=== PATIENT | female | born 1985 | race Caucasian/White ===

== ENCOUNTER 2020-10-02 20:18 | Emergency (ER) | payer MEDICAID, SELFPAY ==
[2020-10-02 20:24] VITALS: BP 113/48; PULSE 86; RESP 16; TEMP 36.7; O2SAT 97; BMI 35.2
[2020-10-02 21:25] LABS: MANUAL DIFF FLAG NO
[2020-10-02 21:28] LABS: Basophils Percent Auto 0.1 % (0-2); Eosinophils Absolute Auto 0.1 X10*3/uL (0.0-0.4); Eosinophils Percent Auto 1.8 % (0-4); Hematocrit 38.3 % (37-47); Imm Gran Abs Auto 0.01 X10*3/uL (0.00-0.03); Imm Gran Pct Auto 0.1 % (0.0-0.4); Lymphocytes Absolute Auto 1.7 X10*3/uL (1.2-4.9); Lymphocytes Percent Auto 21.6 % (20-40); Mean Corpuscular HGB Conc 33.9 g/dl (31.0-35.0); Mean Corpuscular Hemoglobin 30.2 pg (27.0-33.0); Mean Corpuscular Volume 88.9 fL (80-98); Mean Platelet Volume 11.1 fL (9.4-12.3); Monocytes Absolute Auto 0.5 X10*3/uL (0.1-1.2); Monocytes Percent Auto 6.3 % (2-11); Neutrophils Absolute Auto 5.5 X10*3/uL (2.0-8.3); Neutrophils Percent Auto 70.1 % (45-73); Platelet Count 260 X10*3/uL (160-400); Red Blood Count 4.31 X10*6/uL (4.20-5.50); Red Cell Distribution Width 12.7 % (11.0-16.0); White Blood Count 7.9 X10*3/uL (4.8-10.8)
[2020-10-02 21:49] LABS: Alanine Aminotransferase 15 U/L (0-31); Albumin Level 4.4 g/dL (3.5-5.0); Alkaline Phosphatase 55 U/L (39-117); Anion Gap 13 (12-20); Aspartate Amino Transferase 19 U/L (5-31); Bilirubin Total 0.9 mg/dL (0.0-1.0); Blood Urea Nitrogen 8 mg/dL (9-16); Calcium 9.5 mg/dL (8.4-10.2); Carbon Dioxide 25 mmol/L (22-29); Chloride 106 mmol/L (96-108); Creatinine Clr Calc Pharmacy 101.6; Estimated Glomerular Filt Rate > 60; Glucose Random 83 mg/dL (60-115); Potassium 4.1 mmol/L (3.3-5.1); Sodium 140 mmol/L (135-145); Total Protein 7.3 g/dL (6.5-8.0)
[2020-10-02 21:56] LABS: HCG Quantitative < 2 mIU/mL
[2020-10-02 22:22] VITALS: BP 110/68; PULSE 78; RESP 16; O2SAT 98
[2020-10-02 22:39] VITALS: BP 105/68; PULSE 68
[2020-10-02 22:41] VITALS: BP 113/71; PULSE 76
[2020-10-02 22:43] VITALS: BP 106/67; PULSE 80
--- NOTE | 2020-10-02 23:27 | ED.GENADULT ---
HPI - General Adult General Chief complaint: General Medical Stated complaint: dehydration Time Seen by Provider: 10/02/20 22:27 Source: patient Mode of arrival: ambulatory History of Present Illness HPI narrative: 35-year-old female who presents with complaints of feeling dehydrated with mild dizziness but denies any nausea, vomiting, fever, chills, sore throat, cough, shortness of breath or chest pain. In addition, she denies any abdominal discomfort or symptoms. Related Data Allergies Allergy/AdvReac Type Severity Reaction Status Date / Time acetaminophen [From VICODIN] Allergy Unknown VOMITING Verified 10/02/20 20:27 bupropion [From WELLBUTRIN] Allergy Unknown MANIC Verified 10/02/20 20:27 hydrocodone [From VICODIN] Allergy Unknown VOMITING Verified 10/02/20 20:27 olanzapine [From ZYPREXA] Allergy Unknown HARD TO Verified 10/02/20 20:27 WAKE UP Review of Systems Review of Systems: Pertinent positives and negatives as stated in HPI 10 point review of systems is otherwise negative. PMFSH Past Medical History Source: nursing notes reviewed Medical History Asthma Social History Social History Advance Directives: No Advance Directives Information Provided: No Patient : No Physical Exam Vital Signs: Vital Signs: Last Vital Signs Temp 98.0 F 10/02/20 20:24 Pulse 80 10/02/20 22:43 Resp 16 10/02/20 22:22 BP 106/67 10/02/20 22:43 Pulse Ox 98 10/02/20 22:22 Body Mass Index 35.2 VITAL SIGNS: Reviewed. GENERAL: Well developed, well nourished, in no acute distress. HEAD: Normocephalic/atraumatic EYES: PERRLA, EOMI EARS: Ext canals without abnormality, TMs non-bulging and non-erythematous NOSE: Nares patent bilateral OROPHARYNX: no oral lesions noted, posterior pharynx clear and non-erythematous without noted tonsillar enlargement/erythema/exudates NECK: Supple, no adenopathy LUNGS: Normal breath sounds. No adventitious sounds or accessory muscle use. SpO2<98> CARDIOVASCULAR: Regular rate and rhythm without noted murmurs ABDOMEN: Soft, non-tender, non-distended with bowel sounds. SKIN: Inspection of the skin reveals no rashes NEUROLOGIC: Alert and oriented x 4. Strength and sensation to light touch were grossly intact x 4. Course Course Course Narrative: 35-year-old female with history and clinical presentation mildly suggestive of mild dehydration. Review of all investigations without significant findings. Patient received 2 L of IV fluids and on re-evaluation is feeling better. Medical Decision Making Lab Data Result diagrams: 10/02/20 21:19 10/02/20 21:19 Labs: Lab Results 10/02/20 10/02/20 10/03/20 Range/Units 21:19 21:19 02:07 WBC 7.9 (4.8-10.8) X10*3/uL RBC 4.31 (4.20-5.50) X10*6/uL Hgb 13.0 (12.0-16.0) g/dl Hct 38.3 (37-47) % MCV 88.9 (80-98) fL MCH 30.2 (27.0-33.0) pg MCHC 33.9 (31.0-35.0) g/dl RDW 12.7 (11.0-16.0) % Plt Count 260 (160-400) X10*3/uL MPV 11.1 (9.4-12.3) fL Immature Gran % (Auto) 0.1 (0.0-0.4) % Neut % (Auto) 70.1 (45-73) % Lymph % (Auto) 21.6 (20-40) % [place] % (Auto) 6.3 (2-11) % Eos % (Auto) 1.8 (0-4) % Baso % (Auto) 0.1 (0-2) % Lymph # (Auto) 1.7 (1.2-4.9) X10*3/uL [place] # (Auto) 0.5 (0.1-1.2) X10*3/uL Eos # (Auto) 0.1 (0.0-0.4) X10*3/uL Baso # (Auto) 0.0 (0.0-0.2) X10*3/uL Abs Immat Gran (auto) 0.01 (0.00-0.03) X10*3/uL Absolute Neuts (auto) 5.5 (2.0-8.3) X10*3/uL Absolute Nucleated RBC 0.000 (0.0-0.012) X10*3/uL Nucleated RBC % (auto) 0.0 (0.0-0.2) /100WBC Sodium 140 (135-145) mmol/L Potassium 4.1 (3.3-5.1) mmol/L Chloride 106 (96-108) mmol/L Carbon Dioxide 25 (22-29) mmol/L Anion Gap 13 (12-20) BUN 8 L (9-16) mg/dL Creatinine 0.84 (0.5-1.4) mg/dL Estim Creat Clear Calc 101.6 Estimated GFR > 60 Random Glucose 83 (60-115) mg/dL Calcium 9.5 (8.4-10.2) mg/dL Total Bilirubin 0.9 (0.0-1.0) mg/dL AST 19 (5-31) U/L ALT 15 (0-31) U/L Alkaline Phosphatase 55 (39-117) U/L Total Protein 7.3 (6.5-8.0) g/dL Albumin 4.4 (3.5-5.0) g/dL Beta HCG, Quant < 2 mIU/mL Urine Color YELLOW Urine Appearance HAZY Urine pH 6.0 (5.0-8.0) Ur Specific [place] 1.020 (1.005-1.025) Urine Protein NEG (NEG-TRACE) MG/DL Urine Glucose (UA) NEG (NEG) MG/DL Urine Ketones NEG (NEG) MG/DL Urine Blood 1+ H (NEG) Urine Nitrite NEG (NEG) Ur Leukocyte Esterase 1+ H (NEG) Urine RBC 1-4 (0) /HPF Urine WBC 5-9 H (0-4) /HPF Ur Squamous Epith Cells 2+ /LPF Urine Bacteria 2+ /LPF Urine Mucus 4+ /LPF Urine Test (NEGATIVE) 10/03/20 Range/Units 02:07 WBC (4.8-10.8) X10*3/uL RBC (4.20-5.50) X10*6/uL Hgb (12.0-16.0) g/dl Hct (37-47) % MCV (80-98) fL MCH (27.0-33.0) pg MCHC (31.0-35.0) g/dl RDW (11.0-16.0) % Plt Count (160-400) X10*3/uL MPV (9.4-12.3) fL Immature Gran % (Auto) (0.0-0.4) % Neut % (Auto) (45-73) % Lymph % (Auto) (20-40) % [place] % (Auto) (2-11) % Eos % (Auto) (0-4) % Baso % (Auto) (0-2) % Lymph # (Auto) (1.2-4.9) X10*3/uL [place] # (Auto) (0.1-1.2) X10*3/uL Eos # (Auto) (0.0-0.4) X10*3/uL Baso # (Auto) (0.0-0.2) X10*3/uL Abs Immat Gran (auto) (0.00-0.03) X10*3/uL Absolute Neuts (auto) (2.0-8.3) X10*3/uL Absolute Nucleated RBC (0.0-0.012) X10*3/uL Nucleated RBC % (auto) (0.0-0.2) /100WBC Sodium (135-145) mmol/L Potassium (3.3-5.1) mmol/L Chloride (96-108) mmol/L Carbon Dioxide (22-29) mmol/L Anion Gap (12-20) BUN (9-16) mg/dL Creatinine (0.5-1.4) mg/dL Estim Creat Clear Calc Estimated GFR Random Glucose (60-115) mg/dL Calcium (8.4-10.2) mg/dL Total Bilirubin (0.0-1.0) mg/dL AST (5-31) U/L ALT (0-31) U/L Alkaline Phosphatase (39-117) U/L Total Protein (6.5-8.0) g/dL Albumin (3.5-5.0) g/dL Beta HCG, Quant mIU/mL Urine Color Urine Appearance Urine pH (5.0-8.0) Ur Specific [place] (1.005-1.025) Urine Protein (NEG-TRACE) MG/DL Urine Glucose (UA) (NEG) MG/DL Urine Ketones (NEG) MG/DL Urine Blood (NEG) Urine Nitrite (NEG) Ur Leukocyte Esterase (NEG) Urine RBC (0) /HPF Urine WBC (0-4) /HPF Ur Squamous Epith Cells /LPF Urine Bacteria /LPF Urine Mucus /LPF Urine Test NEGATIVE (NEGATIVE) Discharge Plan Discharge Clinical Impression: Dehydration Patient Disposition: Home, Self-Care Instructions: Dehydration (ED) Additional Instructions: 1. Increase fluid hydration especially water. 2. Please follow-up with your primary care provider in the next 2-3 days for re-evaluation and further outpatient management. Return to the ER for acute worsening symptoms. Referrals: [facility] [Primary Care Provider] - 2 days
[2020-10-02] MEDS: 0.9 % Sodium Chloride 2,000 ML 999 ML IV (23:48)
--- NOTE | 2020-10-03 01:54 | PC.NURSE ---
PT DENIES NAUSEA OR VOMITING. PT ABLE TO TOLERATE ICE WATER AND MULTIPLE SALTINES.
[2020-10-03 02:15] LABS: Glucose Urine UA NEG (NEG); Leukocyte Esterase Urine 1+ (NEG); Nitrite Urine NEG (NEG); UACC Culture Trigger YES; Urine Blood 1+ (NEG); Urine Ketones NEG (NEG); Urine Protein NEG (NEG-TRACE)
[2020-10-03 02:18] LABS: Appearance Urine HAZY; Color Urine YELLOW
[2020-10-03 02:43] LABS: Bacteria Urine 2+ /LPF; Mucus Urine 4+ /LPF; Squamous Epithelial Cell Urine 2+ /LPF; UPreg QC Valid YES; Urine Pregnancy NEGATIVE (NEGATIVE)
--- NOTE | 2020-10-03 04:11 | PC.NURSE ---
pt requested and was given a sandwich and soda.
[2020-10-03 04:36] VITALS: BP 124/80; PULSE 76; RESP 16; TEMP 37.1; O2SAT 98
== END 2020-10-03 04:37 | disposition home or self-care (01) ==
PROVIDERS: Emergency Provider Student in an Organized Health Care Education/Training Program
DX: E86.0 Dehydration (principal); R42 Dizziness and giddiness; Z79.899 Other long term (current) drug therapy
CPT/HCPCS: 36415; 80053; 81001; 81025; 84702; 85025; 87086; 96360; 96361; 99284

== ENCOUNTER 2021-03-12 05:24 | Emergency (ER) | payer MEDICAID, SELFPAY ==
--- NOTE | 2021-03-12 | ECG_ITS ---
Test Reason : CHEST TIGHTNESS Blood Pressure : / mmHG Vent. Rate : 060 BPM Atrial Rate : 060 BPM P-R Int : 148 ms QRS Dur : 082 ms QT Int : 426 ms P-R-T Axes : 037 056 062 degrees QTc Int : 426 ms Normal sinus rhythm with sinus arrhythmia Normal ECG No previous ECGs available Referred By: Generic ED Physician Electronically Signed By:Darnell Gonzalez
[2021-03-12 05:32] VITALS: BP 121/64; PULSE 75; RESP 17; TEMP 36.8; O2SAT 100; BMI 33.6
--- NOTE | 2021-03-12 06:30 | PC.NURSE ---
this rn to bedside to obtain labs as ordered. pt presumed in bathroom at this time as belongings remain at bedside but pt is not in room.
--- NOTE | 2021-03-12 06:37 | PC.NURSE ---
pt rang in reporting chest tightness. this rn ordered ekg, tech to obtain ekg and labs. Dr Sierra is aware.
--- NOTE | 2021-03-12 06:56 | PC.NURSE ---
Dr Odonnell provided EKG by [facility]. Dr Odonnell states to hold off on lab draw at this time until MD daley.
--- NOTE | 2021-03-12 07:05 | ED.ABDPAIN ---
HPI - Abdominal Pain General Chief Complaint: Abdominal Pain Stated Complaint: ABD PAIN Time Seen by Provider: 03/12/21 05:59 Source: patient Mode of arrival: ambulatory Limitations: no limitations History of Present Illness HPI narrative: 36-year-old female who presents emergency department for evaluation of abdominal pain. Patient states that she has very bad heartburn/indigestion. She states that over the past 2-3 months she has had intermittent, mid epigastric, burning/cramping/pressure pain. She states that she takes Tums with only 30 minutes of relief and then the pain returns. She states over the past 3 days the pain is been constant. She has not been able to sleep secondary to her pain. She states the pain is currently 10/10. She denied nausea, vomiting or change in bowel movements. She has not noticed any dark tarry stools or bloody stools. She denies lightheadedness, dizziness or weakness. Patient states she has had to go to the emergency department the past to get a drink a medicine that numbs upper stomach and this often helps her pain. Patient states she works at the [employer]. She states that several employees of been diagnosed with COVID and had 2-3 days ago she developed a nonproductive cough and is requesting COVID testing. She states she has been vaccinated for COVID but does not remember which vaccine she received. Related Data Previous Rx's Medication Instructions Recorded aluminum hydrox-magnesium carb 254 10 ml PO QID PRN #355 ml 03/12/21 mg-237.5 mg/5 mL oral suspension (Gaviscon Extra Strength) omeprazole 20 mg capsule,delayed 20 mg PO DAILY 30 Days #30 cap 03/12/21 release ondansetron 4 mg disintegrating 4 mg PO Q6-8H PRN #14 tab 03/12/21 tablet Allergies Allergy/AdvReac Type Severity Reaction Status Date / Time acetaminophen [From VICODIN] Allergy Unknown VOMITING Verified 03/12/21 05:36 bupropion [From WELLBUTRIN] Allergy Unknown MANIC Verified 03/12/21 05:36 hydrocodone [From VICODIN] Allergy Unknown VOMITING Verified 03/12/21 05:36 olanzapine [From ZYPREXA] Allergy Unknown HARD TO Verified 03/12/21 05:36 WAKE UP Review of Systems Review of Systems Yes all other systems are reviewed and are negative Physical Exam Vital Signs: Vital Signs: Last Vital Signs Temp 98.4 F 03/12/21 07:23 Pulse 69 03/12/21 07:23 Resp 20 03/12/21 07:23 BP 133/74 03/12/21 07:23 Pulse Ox 100 03/12/21 07:23 BMI result Body Mass Index 33.6 Const: Other: Awake, alert, female patient, she appears to be in distress secondary to abdominal pain, she answers all questions appropriately. HENMT: Head: Yes normal to inspection, Yes normocephalic and Yes atraumatic Ears: external ears normal General nose exam: Normal external nose present Face and sinus: Yes normal facial exam Mouth: Normal oral and palatal mucosa present Throat: Yes posterior oropharynx normal Eyes: General: appearance normal, both eyes and all related structures Pupils: Equal, round and reactive pupils present Neck: Neck: Yes normal visual inspection, Yes no lymphadenopathy, Yes trachea midline and Yes supple Chest: Chest palpation & inspection: normal inspection of the chest and normal palpation of entire chest wall Resp: Effort & Inspection: normal respiratory effort and able to speak in complete sentences Auscultation: clear to auscultation bilaterally Cardio: Rate: regular rate Rhythm: regular rhythm Heart sounds: S1 normal heart sound present, S2 normal heart sound present and no murmurs GI: Inspection: Yes normal to inspection Palpation (GI): Soft to palpation, Tenderness to palpation present (GI) (Diffuse mild tenderness with moderate tenderness in the epigastric area) and no guarding Auscultation: normal bowel sounds : General: Yes no CVA tenderness Back/Spine/Pelvis: Back: no CVA tenderness Skin: General skin exam: no rashes or lesions noted Neuro: Cranial nerves: Yes CN's II-XII intact bilaterally and Yes Equal, round and reactive pupils present Cognition (Neuro): normal cognition Motor exam (neuro): 5/5 motor strength present throughout Extrem: General: Yes normal to inspection Psych: Appearance: grossly normal Speech and movement: Normal speech and movement present Affect: normal affect Attitude: cooperative Thought process: Normal thought process present Thought content: Normal thought content present Course Course Course Narrative: This 36-year-old female with a history of GERD that is untreated who presents emergency department for indigestion/ heartburn like pain x3 months with the pain being constant over the past 3 days. Patient had no significant concerning symptoms such as fever, chills, change in her bowel movements, change in weight. Vital signs were normal. Patient did have mild diffuse abdominal tenderness with moderate epigastric tenderness. Twelve EKG was obtained which was unremarkable. Patient's presentation is consistent with acute gastritis. Patient was ordered to get Maalox 30 cc, viscous lidocaine 10 cc and 10 cc orally. The patient will be started on omeprazole 20 mg once a day for 1 month, extra-strength Gaviscon 4 times a day for 1 week and Tylenol 1000 mg every 6 hours as needed for pain. Patient was advised to follow-up with her PCP for re-evaluation we 2 weeks, she was given printed and verbal instructions and discharged home. The patient did have a COVID exposure at her workplace and she states she has had a cough, she will be tested for COVID-19. I will contact her with this result when it is available. 1450: I did contact the patient informed her COVID-19 test was negative. She requested antinausea medicine therefore I sent a prescription for Zofran ODT 4 mg every 6-8 hours as needed for nausea and vomiting. MDM - Abdominal Pain Lab Data Labs: Lab Results 03/12/21 Range/Units 07:27 COVID-19 ([facility]) Negative (Negative) COVID-19 Clin Com See Note ECG Data Attestation: I personally reviewed and interpreted this ECG as follows: Interpretation: 0642: Normal sinus rhythm with a rate of 60, normal TN interval, QRS duration QTC interval, no ST segment elevation, no ST segment depression, no PACs, no PVCs, this is a normal EKG. Discharge Plan Discharge Clinical Impression: Gastritis Patient Disposition: Home, Self-Care Instructions: Gastritis (ED) Additional Instructions: Your symptoms and examination are consistent with inflammation of your stomach (gastritis). This is often caused by your stomach making too much acid causing your stomach to get very inflamed. I am prescribing Prilosec (omeprazole) 20 mg once a day for 1 month. This is a medicine that shuts off your acid production and lets your stomach heal, it is important that you take this for a whole month. I am also prescribing extra-strength Gaviscon, take 10 mL (2 tsp) 4 times a day for the next week. This will help neutralize the acid in your stomach and reduce your pain. Take Tylenol (acetaminophen) 500 mg pills, 2 pills every 4 to 6 hours as needed for pain. Follow-up with your doctor in 2 days. Please return to the emergency department if your symptoms get worse or if you develop any symptoms that are concerning to you. Please see work note I will contact you with your COVID-19 result, the sometimes takes 2-4 hours to come back. 1450: Patient requested antinausea medication, I ordered Zofran 4 mg ODT 1 pill every 4-6 hours as needed. Prescriptions: New omeprazole 20 mg capsule,delayed release(DR/EC) 20 mg PO DAILY 30 Days Qty: 30 RF: 0 Gaviscon Extra Strength 254-237.5 mg/5 mL suspension 10 ml PO QID PRN (Reason: dyspepsia) Qty: 355 RF: 0 ondansetron 4 mg tablet,disintegrating 4 mg PO Q6-8H PRN (Reason: nausea and vomiting) Qty: 14 RF: 0 Stand Alone Forms: Work/School Release Interventions: ED Discharge Assessment Last Done: 03/12/21 08:07 Discharge Date/Time: 03/12/21 08:08 [facility] Past Medical History [facility] Narrative: Past medical history: Asthma, GERD. Past surgical history: None. Social history: She states that she stop smoking cigarettes 6 months prior, she was smoking 1 pack per day x4 years. She denies alcohol use. She states that she was smoking marijuana daily but quit 2 weeks ago Medical History Asthma Social History Social History Advance Directives: No
[2021-03-12 07:23] VITALS: BP 133/74; PULSE 69; RESP 20; TEMP 36.9; O2SAT 100
[2021-03-12] MEDS: Lidocaine HCl Viscous 2 % 15 ML SOLUTION 10 ML PO (07:24)
[2021-03-12] MEDS: Magnesium Hydrox/Alum Hydrox 30 ML ORAL.SUSP PO (07:24)
[2021-03-12] MEDS: PHENobarb/Hyoscy/Atropine/Scop 10 ML ELIXIR PO (07:24)
[2021-03-12 07:49] LABS: COVID-19 Test Negative (Negative)
== END 2021-03-12 08:08 | disposition home or self-care (01) ==
PROVIDERS: Student in an Organized Health Care Education/Training Program; Emergency Provider Emergency Medicine Emergency Medical Services
DX: K29.70 Gastritis, unspecified, without bleeding (principal); Z20.822 Contact with and (suspected) exposure to COVID-19; R10.9 Unspecified abdominal pain; K21.9 Gastro-esophageal reflux disease without esophagitis
CPT/HCPCS: 87635; 93005; 99283; 99284

== ENCOUNTER 2021-03-13 08:51 | Emergency (ER) | payer MEDICAID, SELFPAY ==
--- NOTE | ~2021-03-13 | XR_ITS ---
EXAMINATION: XR CHEST CLINICAL INFORMATION: Chest pain COMPARISON: Previous chest x-ray September 2019 TECHNIQUE: Frontal view of the chest was obtained. FINDINGS: No significant abnormality is noted involving the heart, lungs, mediastinum, bony thorax or soft tissues. XR/XR chest 1V IMPRESSION: Unremarkable examination.
[2021-03-13 08:59] VITALS: BP 140/86; PULSE 68; RESP 16; TEMP 36.7; O2SAT 99
[2021-03-13 09:03] VITALS: BP 140/86; BP 148/77; PULSE 60; PULSE 67; RESP 18; TEMP 36.7; O2SAT 98; O2SAT 99; BMI 33.6
--- NOTE | 2021-03-13 09:09 | ED.ABDPAIN ---
HPI - Abdominal Pain General Chief Complaint: General Medical Stated Complaint: ABD PAIN/SOB,+VACC Time Seen by Provider: 03/13/21 08:57 Source: patient Mode of arrival: ambulatory Limitations: no limitations History of Present Illness HPI narrative: 36-year-old female with a history of acid ox since age 18 who presents to the ER with epigastric pain for the last 3 days. She reports it is burning and radiates into her entire abdomen as well as up into her chest. It has been constant for 3 days. She was seen here yesterday for the same and discharged on Prilosec. She did not peanut picker the medication but reports when she got here did not work. She states she has had intermittent bouts of acid reflux over the last few months, usually takes Tums with resolution. She reports history of GERD as a teenager and a supposed to get an EGD but she was too scared and never went. She admits to vomiting last week and when she got drunk and drink too much alcohol. She had some spicy food this week as well. She had some soup yesterday because she is afraid to eat anything, it makes it worse. She denies any black or bloody stools. No vomiting or diarrhea. MD elicited complaint: abdominal pain Pertinent past history: other (GERD) Onset (ago): day(s) (3) Pain Consistency: constant Location: epigastric Severity: severe Quality: aching and burning Radiation: LUQ, RUQ and chest Migration to: no migration Exacerbating factors: eating Relieving factors: nothing Context: history of similar episodes Associated symptoms: denies other symptoms Related Data Previous Rx's Medication Instructions Recorded aluminum hydrox-magnesium carb 254 10 ml PO QID PRN #355 ml 03/12/21 mg-237.5 mg/5 mL oral suspension (Gaviscon Extra Strength) omeprazole 20 mg capsule,delayed 20 mg PO DAILY 30 Days #30 cap 03/12/21 release ondansetron 4 mg disintegrating 4 mg PO Q6-8H PRN #14 tab 03/12/21 tablet sucralfate 1 gram tablet (Carafate) 1 g PO BID #30 tab 03/13/21 Allergies Allergy/AdvReac Type Severity Reaction Status Date / Time acetaminophen [From VICODIN] Allergy Unknown VOMITING Verified 03/12/21 05:36 bupropion [From WELLBUTRIN] Allergy Unknown MANIC Verified 03/12/21 05:36 hydrocodone [From VICODIN] Allergy Unknown VOMITING Verified 03/12/21 05:36 olanzapine [From ZYPREXA] Allergy Unknown HARD TO Verified 03/12/21 05:36 WAKE UP Review of Systems Review of Systems Constitutional: No Fever, No Chills ENT/Mouth: No sore throat, No Rhinorrhea, No Swallowing Difficulty Cardiovascular: No Chest Pain, No SOB Respiratory: No Cough, No Sputum, No Wheezing, No dyspnea Gastrointestinal: No Nausea, No Vomiting, No Diarrhea,+ abdominal Pain, No Hematochezia, No Melena Genitourinary: No Dysuria, No Urinary Frequency, No Hematuria Musculoskeletal: No joint pain, No Myalgias Skin: No Skin Lesions, No rash Neuro: No Weakness, No Numbness, No Dizziness, No Headache Psych: + Anxiety/Panic, No Depression Heme/Lymph: No Bruising, No Lymphadenopathy Physical Exam Vital Signs: Vital Signs: Last Vital Signs Temp 98.1 F 03/13/21 09:03 Pulse 67 03/13/21 09:03 Resp 18 03/13/21 09:03 BP 140/86 H 03/13/21 09:03 Pulse Ox 98 03/13/21 09:03 BMI result Body Mass Index 33.6 Appearance: Alert. Oriented X3. No acute distress. Eyes: Pupils equal, round and reactive to light. ENT: Pharynx normal. Neck: Normal inspection. Neck supple. CVS: Normal heart rate and rhythm. Pulses normal. Respiratory: No respiratory distress. Breath sounds normal. Abdomen: Soft with mild epigastgric tenderness, no rebound or guarding. +BS x4 Skin: Skin warm and dry. Normal skin color. Normal skin turgor. No rashes. Extremities: No lower extremity edema. Neuro: Oriented X 3. No motor deficit. No sensory deficit. Course Course Course Narrative: 36-year-old female with a history of acid reflux, not treated for the last several years who presents to the ER with epigastric abdominal pain for the last 3 days. She was seen here yesterday for the same and discharged with oral Prilosec. She reports no relief but did not peanut picker the prescription yet. No N/V/D or fevers. No labs done yesterday will check basic labs, LFTs, lipase and treat with prilosec and carafate. Will reassess. Reevaluation(s) Reevaluation #1: Labs are unremarkale. Some improvement in her abdominal pain but would like to try GI cocktail again. UA still pending. Reevaluation #2: Patient feeling slightly better. She would like to be discharged. Will add Carafate to her regimen and refer to GI for EGD. Diet for gastritis and ulcers given to her. Stable for DC home with meds, diet modifications, GI follow-up. MDM - Abdominal Pain Lab Data Result diagrams: 03/13/21 09:32 03/13/21 10:15 Labs: Lab Results 03/13/21 03/13/21 03/13/21 Range/Units 09:32 09:32 09:35 WBC 10.8 (4.8-10.8) X10*3/uL RBC 4.53 (4.20-5.50) X10*6/uL Hgb 13.4 (12.0-16.0) g/dl Hct 39.1 (37.0-47.0) % MCV 86.3 (80.0-98.0) fL MCH 29.6 (27.0-33.0) pg MCHC 34.3 (31.0-35.0) g/dl RDW 12.2 (11.0-16.0) % Plt Count 321 (160-400) X10*3/uL MPV 10.8 (9.4-12.3) fL Immature Gran % (Auto) 0.3 (0.0-0.4) % Neut % (Auto) 76.0 H (45-73) % Lymph % (Auto) 15.9 L (20-40) % Barbour % (Auto) 5.9 (2-11) % Eos % (Auto) 1.6 (0-4) % Baso % (Auto) 0.3 (0-2) % Lymph # (Auto) 1.7 (1.2-4.9) X10*3/uL Barbour # (Auto) 0.6 (0.1-1.2) X10*3/uL Eos # (Auto) 0.2 (0.0-0.4) X10*3/uL Baso # (Auto) 0.0 (0.0-0.2) X10*3/uL Abs Immat Gran (auto) 0.03 (0.00-0.03) X10*3/uL Absolute Neuts (auto) 8.2 (2.0-8.3) x10*3/uL Absolute Nucleated RBC 0.000 (0.0-0.012) X10*3/uL Nucleated RBC % (auto) 0.0 (0.0-0.2) /100WBC Sodium (135-145) mmol/L Potassium (3.3-5.1) mmol/L Chloride (96-108) mmol/L Carbon Dioxide (22-29) mmol/L Anion Gap (12-20) BUN (9-16) mg/dL Creatinine (0.5-1.4) mg/dL Estim Creat Clear Calc Estimated GFR Random Glucose (60-115) mg/dL Calcium (8.4-10.2) mg/dL Magnesium (1.6-2.6) mg/dL Total Bilirubin (0.0-1.0) mg/dL Direct Bilirubin (0.0-0.5) mg/dL AST (5-31) U/L ALT (0-31) U/L Alkaline Phosphatase (39-117) U/L Troponin I High Sens < 3.5 (<3.5-17.0) ng/L Total Protein (6.5-8.0) g/dL Albumin (3.5-5.0) g/dL Lipase (8-78) U/L COVID-19 ([facility]) Negative (Negative) COVID-19 Clin Com See Note 03/13/21 Range/Units 10:15 WBC (4.8-10.8) X10*3/uL RBC (4.20-5.50) X10*6/uL Hgb (12.0-16.0) g/dl Hct (37.0-47.0) % MCV (80.0-98.0) fL MCH (27.0-33.0) pg MCHC (31.0-35.0) g/dl RDW (11.0-16.0) % Plt Count (160-400) X10*3/uL MPV (9.4-12.3) fL Immature Gran % (Auto) (0.0-0.4) % Neut % (Auto) (45-73) % Lymph % (Auto) (20-40) % Barbour % (Auto) (2-11) % Eos % (Auto) (0-4) % Baso % (Auto) (0-2) % Lymph # (Auto) (1.2-4.9) X10*3/uL Barbour # (Auto) (0.1-1.2) X10*3/uL Eos # (Auto) (0.0-0.4) X10*3/uL Baso # (Auto) (0.0-0.2) X10*3/uL Abs Immat Gran (auto) (0.00-0.03) X10*3/uL Absolute Neuts (auto) (2.0-8.3) x10*3/uL Absolute Nucleated RBC (0.0-0.012) X10*3/uL Nucleated RBC % (auto) (0.0-0.2) /100WBC Sodium 137 (135-145) mmol/L Potassium 4.1 (3.3-5.1) mmol/L Chloride 103 (96-108) mmol/L Carbon Dioxide 28 (22-29) mmol/L Anion Gap 10 L (12-20) BUN 8 L (9-16) mg/dL Creatinine 0.77 (0.5-1.4) mg/dL Estim Creat Clear Calc 107.1 Estimated GFR > 60 Random Glucose 105 (60-115) mg/dL Calcium 9.4 (8.4-10.2) mg/dL Magnesium 2.1 (1.6-2.6) mg/dL Total Bilirubin 0.9 (0.0-1.0) mg/dL Direct Bilirubin 0.4 (0.0-0.5) mg/dL AST 16 (5-31) U/L ALT 13 (0-31) U/L Alkaline Phosphatase 64 (39-117) U/L Troponin I High Sens (<3.5-17.0) ng/L Total Protein 7.5 (6.5-8.0) g/dL Albumin 4.1 (3.5-5.0) g/dL Lipase 27 (8-78) U/L COVID-19 ([facility]) (Negative) COVID-19 Clin Com Critical Care Time Critical Care Time Critical Care Time: No Discharge Plan Discharge Clinical Impression: GERD (gastroesophageal reflux disease) Qualifiers: Esophagitis presence: with esophagitis Esophagitis bleeding: without hemorrhage Qualified Code(s): K21.00 - Gastro-esophageal reflux disease with esophagitis, without bleeding Patient Disposition: Home, Self-Care Instructions: Diet for Stomach Ulcers and Gastritis (ED), Upper Endoscopy (DC) Additional Instructions: Your lab workup today was unremarakble. Recommend starting the prescribed Carafate medication to help coat and line your stomach. Stick to the diet in the information provided, avoid spicy food, alcohol, acidic food. Eat small meals several times per day, no big meals. Do not lay down after eating. No food 2 hours before bedtime. Follow-up with GI doctor, name & number below. Prescriptions: New sucralfate [Carafate] 1 gram tablet 1 g PO BID Qty: 30 RF: 0 No Action omeprazole 20 mg capsule,delayed release(DR/EC) 20 mg PO DAILY 30 Days Qty: 30 RF: 0 Gaviscon Extra Strength 254-237.5 mg/5 mL suspension 10 ml PO QID PRN (Reason: dyspepsia) Qty: 355 RF: 0 ondansetron 4 mg tablet,disintegrating 4 mg PO Q6-8H PRN (Reason: nausea and vomiting) Qty: 14 RF: 0 Referrals: Klever Valencia MD [Physician] - 2 days (gastritis, reflux, needs EGD) Interventions: ED Discharge Assessment Last Done: 03/13/21 13:36 Discharge Date/Time: 03/13/21 13:00 [facility] Past Medical History Medical History Asthma Social History Social History Advance Directives: No Advance Directives Information Provided: No
[2021-03-13 09:36] LABS: MANUAL DIFF FLAG NO
[2021-03-13 09:38] LABS: Basophils Percent Auto 0.3 % (0-2); Eosinophils Absolute Auto 0.2 X10*3/uL (0.0-0.4); Eosinophils Percent Auto 1.6 % (0-4); Hematocrit 39.1 % (37.0-47.0); Hemoglobin 13.4 g/dl (12.0-16.0); Imm Gran Abs Auto 0.03 X10*3/uL (0.00-0.03); Imm Gran Pct Auto 0.3 % (0.0-0.4); Lymphocytes Absolute Auto 1.7 X10*3/uL (1.2-4.9); Lymphocytes Percent Auto 15.9 % (20-40); Mean Corpuscular HGB Conc 34.3 g/dl (31.0-35.0); Mean Corpuscular Hemoglobin 29.6 pg (27.0-33.0); Mean Corpuscular Volume 86.3 fL (80.0-98.0); Mean Platelet Volume 10.8 fL (9.4-12.3); Monocytes Absolute Auto 0.6 X10*3/uL (0.1-1.2); Monocytes Percent Auto 5.9 % (2-11); Neutrophils Absolute Auto 8.2 x10*3/uL (2.0-8.3); Platelet Count 321 X10*3/uL (160-400); Red Blood Count 4.53 X10*6/uL (4.20-5.50); Red Cell Distribution Width 12.2 % (11.0-16.0); White Blood Count 10.8 X10*3/uL (4.8-10.8)
[2021-03-13] MEDS: 0.9 % Sodium Chloride 1,000 ML 999 ML IVCONT (09:40)
[2021-03-13] MEDS: Sucralfate 1 GM TABLET PO (09:45)
[2021-03-13] MEDS: Omeprazole 40 MG CAPSULE.DR PO (09:46)
[2021-03-13 10:03] LABS: Troponin-I High Sensitivity < 3.5 ng/L (<3.5-17.0)
[2021-03-13 10:16] LABS: COVID-19 Test Negative (Negative); IDNOW Serial# 9DD0AD1C
[2021-03-13 10:38] LABS: Alanine Aminotransferase 13 U/L (0-31); Albumin Level 4.1 g/dL (3.5-5.0); Alkaline Phosphatase 64 U/L (39-117); Anion Gap 10 (12-20); Aspartate Amino Transferase 16 U/L (5-31); Bilirubin Direct 0.4 mg/dL (0.0-0.5); Bilirubin Total 0.9 mg/dL (0.0-1.0); Blood Urea Nitrogen 8 mg/dL (9-16); Calcium 9.4 mg/dL (8.4-10.2); Carbon Dioxide 28 mmol/L (22-29); Chloride 103 mmol/L (96-108); Creatinine Clr Calc Pharmacy 107.1; Estimated Glomerular Filt Rate > 60; Glucose Random 105 mg/dL (60-115); Lipase 27 U/L (8-78); Magnesium 2.1 mg/dL (1.6-2.6); Potassium 4.1 mmol/L (3.3-5.1); Sodium 137 mmol/L (135-145); Total Protein 7.5 g/dL (6.5-8.0)
[2021-03-13] MEDS: PHENobarb/Hyoscy/Atropine/Scop 10 ML ELIXIR PO (12:20)
[2021-03-13] MEDS: Magnesium Hydrox/Alum Hydrox 30 ML ORAL.SUSP PO (12:20)
[2021-03-13] MEDS: Lidocaine HCl Viscous 2 % 15 ML SOLUTION MUCOUS MEM (12:20)
== END 2021-03-13 13:00 | disposition home or self-care (01) ==
PROVIDERS: Physician Assistant; Emergency Provider Emergency Medicine Emergency Medical Services
DX: K21.00 Gastro-esophageal reflux disease with esophagitis, without bleeding (principal); Z20.822 Contact with and (suspected) exposure to COVID-19
CPT/HCPCS: 71045; 80048; 80076; 83690; 83735; 84484; 85025; 87635; 99283; 99284

== ENCOUNTER 2021-11-19 19:55 | Emergency (ER) | payer MEDICAID, SELFPAY ==
--- NOTE | ~2021-11-19 | XR_ITS ---
EXAMINATION: XR FOREARM, RIGHT CLINICAL INFORMATION: Pain. Limited range of motion. COMPARISON: None TECHNIQUE: AP and lateral views of the right forearm were obtained. FINDINGS: The bones and soft tissues are normal. No fracture. Imaged portions of the elbow and wrist are unremarkable. XR/XR forearm RT 2V IMPRESSION: No acute osseous abnormality.
[2021-11-19 20:19] VITALS: BP 104/65; PULSE 97; RESP 18; TEMP 37; O2SAT 98; BMI 35.4
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
== END 2021-11-19 22:24 | disposition home or self-care (01) ==
PROVIDERS: Emergency Provider Emergency Medicine
DX: S50.11XA Contusion of right forearm, initial encounter (principal); Y08.89XA Assault by other specified means, initial encounter; Y93.9 Activity, unspecified; Y92.039 Unspecified place in apartment as the place of occurrence of the external cause; Y99.9 Unspecified external cause status
CPT/HCPCS: 73090; 99282; 99283

== ENCOUNTER 2022-01-26 22:20 | Emergency (ER) | payer MEDICAID, SELFPAY ==
[2022-01-26 22:24] VITALS: BP 135/79; PULSE 98; RESP 18; TEMP 36.2; O2SAT 99; BMI 32.8
[2022-01-26 23:01] LABS: Strep A Nucleic Acid Positive (Negative)
[2022-01-26 23:27] LABS: Influenza A PCR NEGATIVE (Negative); Influenza B PCR NEGATIVE (Negative); Resp Syncy Virus RNA Qual PCR NEGATIVE (Negative); SARS COV2 PCR INHOUSE NEGATIVE (Negative)
--- NOTE | 2022-01-27 00:41 | ED_ITS ---
HPI - General Adult General Chief complaint: General Medical Stated complaint: sore throat, feels swollen, covid swab? Time Seen by Provider: 01/27/22 00:33 Source: patient Mode of arrival: ambulatory Limitations: no limitations History of Present Illness HPI narrative: 37-year-old female came in for evaluation of sore throat. Patient been having sore throat for 2 days, history of exposure to a sick contact, patient declined fever or chills, no difficulty breathing or throat swelling. Able to swallow, no voice change. Related Data Previous Rx's Medication Instructions Recorded aluminum hydrox-magnesium carb 254 10 ml PO QID PRN dyspepsia #355 mL 03/12/21 mg-237.5 mg/5 mL oral suspension (Gaviscon Extra Strength) omeprazole 20 mg capsule,delayed 20 mg PO DAILY 30 days #30 caps 03/12/21 release ondansetron 4 mg disintegrating 4 mg PO Q6-8H PRN nausea and 03/12/21 tablet vomiting #14 tabs sucralfate 1 gram tablet (Carafate) 1 g PO BID #30 tabs 03/13/21 amoxicillin 500 mg tablet 500 mg PO BID #20 tabs 01/27/22 Allergies Allergy/AdvReac Type Severity Reaction Status Date / Time acetaminophen [From VICODIN] Allergy Unknown VOMITING Verified 01/26/22 22:28 bupropion [From WELLBUTRIN] Allergy Unknown MANIC Verified 01/26/22 22:28 hydrocodone [From VICODIN] Allergy Unknown VOMITING Verified 01/26/22 22:28 olanzapine [From ZYPREXA] Allergy Unknown HARD TO Verified 01/26/22 22:28 WAKE UP Review of Systems Review of Systems: All other systems are reviewed and are negative Constitutional: Reports as per HPI and Reports no additional constitutional complaints Eyes: Reports as per HPI and Reports no additional eye complaints Reports system reviewed and no additional complaints, except as documented Cardiovascular: Reports as per HPI and Reports no additional cardiovascular comp laints Respiratory: Reports as per HPI and Reports no additional respiratory complaints Gastrointestinal: Reports as per HPI and Reports no additional gastrointestinal complaints Genitourinary: Reports no additional female genitourinary complaints Musculoskeletal: Reports no additional musculoskeletal complaints Skin/Breast: Reports system reviewed and no additional complaints, except as docu Psychiatric: Reports no additional psychiatric complaints Endocrine: Reports no additional endocrine complaints Hematologic/Lymphatic: Reports no additional hematologic/lymphatic complaints Allergic/Immunologic: Reports no additional allergic/immunologic complaints Reports system reviewed and no additional complaints, except as documented and Reports Abnormal speech present [facility] Past Medical History Medical History Asthma Social History Social History Advance Directives: No Advance Directives Information Provided: No Physical Exam ED Vital Signs: Vital Signs - 24 hr 01/26/22 22:24 Temperature 97.2 F Pulse Rate 98 Respiratory Rate 18 Blood Pressure 135/79 Pulse Oximetry 99 Oxygen Delivery Method Room Air BMI result Body Mass Index 32.8 Vital signs have been reviewed as appeared to be correct. Blood pressure normal. Heart rate normal. Respiration rate normal. Temperature normal. Oxygen saturation normal. Appearance: Alert. Oriented X3. No acute distress. Head: Normal external exam. Normocephalic. Atraumatic. No Rios signs noted. No raccoon eyes noted Eyes: PERRLA. EOMI. Conjunctiva and sclera normal. Eyelids normal. ENT: TM's Normal. Pharyngeal erythema with white exudate on the left side, no lymphadenopathy.. Uvula midline. Moist mucous membranes. No trismus noted. No drooling noted. No muffled voice noted. Neck: Normal inspection. Neck supple. FROM. No adenopathy. Thyroid Normal. No meningeal signs. No neck mass noted. CVS: Normal heart rate and rhythm. Heart sound normal. No murmurs noted. Pulses normal throughout. Respiratory: No respiratory distress. Painless inspiration. Breath sounds normal. No wheezes/rales/rhonchi noted. Chest nontender. No accessory muscle usage noted or decreased air movement noted. Abdomen: Soft and nontender. Bowel sounds normal in all 4 quadrants. No distention noted. No organomegaly noted. No visible injury noted. Back: No CVA tenderness. Full range of motion noted. Skin: Skin warm and dry. Normal skin color. Normal skin turgor. No rashes/lesions/lacerations noted. Extremities: No lower extremity edema. Extremities exhibit normal range of motion. Extremities nontender. Neuro: Oriented X 3. Cranial nerve exam: II-XII are grossly intact No motor deficit. No sensory deficit. Reflexes normal. Course Course Course Narrative: [age] female came in for sore throat patient tested positive for strep pharyngitis, start the patient on amoxicillin. Medical Decision Making Medical Decision Making Differential Diagnoses: Differential diagnosis Differential Diagnosis: The differential diagnosis associated with the patient?s presentation includes: Strep pharyngitis/viral pharyngitis/viral syndrome/COVID infection/influenza/peritonsillar abscess. Lab Attestation: I reviewed the patient's lab results. Discharge Plan Discharge Clinical Impression: Acute streptococcal pharyngitis Patient Disposition: Home, Self-Care Instructions: Strep Throat (ED) Prescriptions: New amoxicillin 500 mg tablet 500 mg PO BID Qty: 20 0RF No Action omeprazole 20 mg capsule,delayed release(DR/EC) 20 mg PO DAILY 30 Days Qty: 30 0RF Gaviscon Extra Strength 254-237.5 mg/5 mL suspension 10 ml PO QID PRN (Reason: dyspepsia) Qty: 355 0RF ondansetron 4 mg tablet,disintegrating 4 mg PO Q6-8H PRN (Reason: nausea and vomiting) Qty: 14 0RF sucralfate [Carafate] 1 gram tablet 1 g PO BID Qty: 30 0RF Referrals: [facility] [Primary Care Provider] - Stand Alone Forms: Work/School Release
[2022-01-27] MEDS: Amoxicillin 500 MG CAPSULE PO (00:56)
== END 2022-01-27 01:07 | disposition home or self-care (01) ==
PROVIDERS: Emergency Provider Emergency Medicine
DX: J02.0 Streptococcal pharyngitis (principal); J02.9 Acute pharyngitis, unspecified; Z79.899 Other long term (current) drug therapy; Z20.822 Contact with and (suspected) exposure to COVID-19
CPT/HCPCS: 0241U; 36415; 87651; 99282; 99283

== ENCOUNTER 2022-06-12 21:48 | Emergency (ER) | payer MEDICAID, SELFPAY ==
[2022-06-12 21:56] VITALS: BP 130/90; BP 139/91; PULSE 68; PULSE 72; RESP 16; TEMP 36.7; O2SAT 100; O2SAT 99; BMI 43.0
[2022-06-12 22:01] VITALS: PULSE 72; RESP 16; O2SAT 98
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
--- OUTSIDE RECORDS SUMMARY | 2022-06-12 22:12 | XMS_ITS | Continuity of Care Document ---
Author Name Unknown Organization [facility] Address [address] [place] [id number]- Care Team Providers Care Roustabout Supervisor Name Role Phone Savanah MACHADO, Kelli Cisneros Primary Care Physician Encounter [facility] R [id number] Date(s): 01/12/22 - 02/11/22 [facility] [address] [place] [id number]- Attending Physician: Maegan Carter Admitting Physician: Maegan Carter Referring Physician: Maegan Carter Allergies, Adverse Reactions, Alerts Substance Reaction Severity Status Wellbutrin Active Vicodin Nausea and vomiting Active ZyPREXA Lethargic Active Medications omeprazole 40 mg oral enteric coated capsule TAKE 1 CAPSULE BY MOUTH EVERY DAY BEFORE A MEAL Start Date: 06/24/21 Status: Ordered omeprazole 40 mg oral enteric coated capsule 1 capsule = 40 mg, By Mouth, Daily, take 30min before breakfast, # 30 capsule, 2 Refills, Maintenance, 06/24/21 16:26:00 EDT, EC Capsule, [facility], 160, cm, 07/10/19 12:53:00 EDT, Height, 90.2, kg, 07/10/19 12:58:00 EDT, Dry Weight Start Date: 06/24/21 Stop Date: 09/22/21 Status: Ordered sucralfate 1 gm oral tablet 1 Gm, 1, tablet, By Mouth, 4 times a day, # 120 tablet, Refills 0, Maintenance, 06/24/21 16:27:00 EDT, Partial fill upon patient request if the prescription is for a schedule II opioid drug. Start Date: 06/24/21 Status: Ordered Problem List Condition Confirmation Course Effective Dates Status Health [facility] Informant Obese class II Confirmed Active Social History Social History Type Response Smoking Status Former smoker; Tobac co user in household: No entered on: 04/11/15 Sex Female Patient Care team information Care Team Personnel Name: Saavnah MACHADO , Kelli Cisneros Position: [facility] Outreach Member Role: PCP Address: Address: [address] [place] [address]- Care Team Related Persons Name: ROCKY MUNIZ Address: home [address] [place] [address] Name: MARTINA SALDAÑA Address: home [address] [place] [address]
--- OUTSIDE RECORDS SUMMARY | 2022-06-12 22:12 | XMS_ITS | Continuity of Care Document ---
Author Name Unknown Organization [facility] [place] Address [address] [place] [address]- Care Team Providers Care Plumbing Service Technician Name Role Phone Kelli Pavon MD Primary Care Physician Encounter [facility] Date(s): 10/29/21 - 11/28/21 [facility] [place] [address] [place], [place] [address] [place] Allergies, Adverse Reactions, Alerts Substance Reaction Severity [...] Refills, Maintenance, 06/24/21 16:26:00 EDT, EC Capsule, [facility], 160, cm, 07/10/19 12:53:00 EDT, [...] 04/11/15 Sex Female Patient Care team information Personnel Name: Begolli MD , Kelli M Address: Address: [address] [facility] [place] [address]-
--- OUTSIDE RECORDS SUMMARY | 2022-06-12 22:12 | XMS_ITS | Continuity of Care Document ---
Author Name Unknown Organization [facility] ter Address [address] [place] [address]- Care Team Providers Care Crm Technical Lead Name Role Phone Savanah MACHADO, Kelli Cisneros Primary Care Physician Encounter [facility] Date(s): 03/22/19 - 03/22/[address] [address]- [facility] Encounter Diagnosis Hemorrhoid(Final) - 03/22/19 Toe pain, right(Final) - 03/22/19 Cellulitis of foot(Final) - 03/22/19 Discharge Disposition: A-D/C Home Attending Physician: Minh Edgar MD Admitting Physician: Minh Edgar MD Referring Physician: Not on Staff, Referring MD Allergies, Adverse Reactions, Alerts Substance Reaction Severity Status Vicodin Nausea and vomiting Active ZyPREXA Lethargic Active Medications cephalexin monohydrate 500 mg oral capsule 1 capsule = 500 mg, By Mouth, 4 times a day, for 7 days, # 28 capsule, 0 Refills, Acute 03/29/19 10:06:00 EST, 03/22/19 10:06:00 EST, Capsule, [facility], 160, cm, 03/22/19 7:34:00 EST,Height, 91.7, kg, 03/22/19 7:34:00 EST, Dry Weight Start Date: 03/22/19 Stop Date: 03/29/19 Status: Ordered cyclobenzaprine 5 mg oral tablet 1 tablet = 5 mg, By Mouth, 2 times a day, 0 Refills, Maintenance, 01/08/15 17:35:00 Start Date: 01/08/15 Status: Ordered docusate sodium 100 mg oral capsule 1 capsule = 100 mg, By Mouth, 2 times a day, PRN as needed for constipation, # 14 capsule, 0 Refills, Maintenance, 03/22/19 10:04:00 EST, Capsule, [facility], 160, cm, 03/22/19 7:34:00 EST, Height, 91.7, kg, 03/22/19 7:34:00 EST, Dry Weight Start Date: 03/22/19 Stop Date: 03/29/19 Status: Ordered doxylamine 25 mg oral tablet 1 tablet = 25 mg, By Mouth, 3 times a day, PRN Nausea & Vomiting, May cause drowsiness, start by taking at bedtime, # 30 tablet, 1 Refills, Maintenance, 04/11/15 21:14:56, Tablet, 1 tablet By Mouth 3 times a day,PRN:Nausea & Vomiting,Instr:May cause d... Start Date: 04/11/15 Status: Ordered Flagyl 500 mg oral tablet 1 tablet = 500 mg, By Mouth, Every 12 hours, # 10 tablet, 0 Refills, Maintenance, 01/06/15 19:16:29, Tablet Start Date: 01/06/15 Status: Ordered MetroGel-Vaginal 0.75% vaginal gel with applicator 1 application, Vaginally, Daily at bedtime, # 70 Gm, 0 Refills, Soft Stop, 04/19/15 0:54:01, Gel Start Date: 04/19/15 Stop Date: 04/24/15 Status: Ordered MetroGel-Vaginal 0.75% vaginal gel with applicator 1 application, Vaginally, Daily at bedtime, # 70 Gm, 0 Refills, Soft Stop, 04/11/15 21:14:06, Gel, 1 application Vaginally Daily at bedtime,x5 days Start Date: 04/11/15 Stop Date: 04/16/15 Status: Ordered metroNIDAZOLE 0.75% topical gel 1 application, Vaginally, 2 times a day, # 45 Gm, 0 Refills, Maintenance, 06/02/18 15:39:34 EDT, 1 application Vaginally 2 times a day,x5 days Start Date: 06/02/18 Stop Date: 06/07/18 Status: Ordered omeprazole 40 mg oral enteric coated capsule 1 capsule = 40 mg, By Mouth, Daily, # 30 capsule, 0 Refills, Maintenance, 06/09/18 17:59:51 EDT, ECCapsule Start Date: 06/09/18 Stop Date: 07/09/18 Status: Ordered Preparation H 14%-74.9%-0.25% rectal ointment 1 application, Rectally, 2 times a day, PRN as needed for itching, for 7 days, # 57 Gm, 0 Refills, Acute 03/29/19 10:13:00 EST, 03/22/19 10:13:00 EST, Ointment, [facility], 1 application Rectally 2 times a day,x7 days,PRN:as needed for i... Start Date: 03/22/19 Stop Date: 03/29/19 Status: Ordered psyllium 3.4 g/5.4 g oral powder for reconstitution = 3.4 Gm, By Mouth, 3 times a day, PRN as needed for constipation, for 7 days, # 699 Gm, 0 Refills,Acute 03/29/19 10:03:00 EST, 03/22/19 10:03:00 EST, REC Powder, [facility], 160, cm, 03/22/19 7:34:00 EST, Height, 91.7, kg, 03/22/19 7:3... Start Date: 03/22/19 Stop Date: 03/29/19 Status: Ordered Wellbutrin By Mouth, 0 Refills, Maintenance, 04/18/15 23:31:16 Start Date: 04/18/15 Status: Ordered Zofran ODT 4 mg oral tablet, disintegrating 1 tablet = 4 mg, By Mouth, 3 times a day, # 9 tablet, 0 Refills, Maintenance, 06/09/18 17:59:34 EDT Start Date: 06/09/18 Stop Date: 06/12/18 Status: Ordered ZyPREXA 5 mg oral tablet 1 tablet = 5 mg, By Mouth, 2 times a day, 0 Refills, Maintenance, 01/12/15 10:00:00 Start Date: 01/12/15 Status: Ordered Results Orders for Microbiology Reports Name Date Wound Superficial Culture W/ Gram Smear 03/22/19 Microbiology Reports TEST:Superficial Wound Culture STATUS:Unauthenticated BODY SITE: SOURCE:SWAB1 COLLECTED DATE/TIME:03/22/19 9:50 AM Superficial Wound Culture SPECIMEN DESCRIPTION : SWAB TOE RT 5TH SPECIAL REQUESTS : NONE GRAM STAIN : 1+ POLYMORPHONUCLEAR LEUKOCYTES 1+ SQ.EPITHELIAL CELLS 1+ GRAM POSITIVE COCCI 1+ GRAM NEGATIVE RODS 1+ GRAM POSITIVE RODS REPORT STATUS : PRELIMINARY REPORT Vital Signs Most recent to oldest [Reference Range]: 1 2 Height 160 cm (03/22/19 7:34 AM) Weight 91.7 kg (03/22/19 7:34 AM) 91.7 kg (03/22/19 7:17 AM) Oxygen Saturation [94-100 %] 100 % (03/22/19 10:20 AM) 100 % (03/22/19 7:17 AM) Pulse Rate [55-90 bpm] 67 bpm (03/22/19 10:20 AM) 76 bpm (03/22/19 7:17 AM) Blood Pressure [90-138/55-84 mm Hg] 121/ 82mm Hg (03/22/19 10:20 AM) 118/67mm Hg (03/22/19 7:17 AM) Respiratory Rate [16-30 br/min] 18 br/mi n (03/22/19 10:20 AM) 20 br/min (03/22/19 7:17 AM) Temperature [96.8-100.4 DegF] 97.4 DegF (03/22/19 7:17 AM) Mode of Delivery (Oxygen) Room air (03/22/19 7:17 AM) Blood pressure sites Arm, right (03/22/19 7:17 AM) Temperature Route Oral (03/22/19 7:17 AM) Dry Weight 91.7 kg (03/22/19 7:34 AM) 91.7 kg (03/22/19 7:17 AM) Weight Obtained Via Standing scale (03/22/19 7:17 AM) Dry Weight Obtained Via Standing scale (03/22/19 7:17 AM) Social History Social History Type Response Smoking Status Former smoker; Tobac co user in household: No entered on: 04/11/15 Sex
--- OUTSIDE RECORDS SUMMARY | 2022-06-12 22:12 | XMS_ITS | Continuity of Care Document ---
Author Name Unknown Organization [facility] Address [address] [place] [address]- Care Team Providers Care Skilled Helper Name Role Phone Savanah MACHADO, Kelli Cisneros Primary Care Physician Encounter [facility] [place] Date(s): 06/25/21 - 07/25/21 [facility] [address] [place] [address]- Attending Physician: Maegan Carter Admitting Physician: Maegan Carter Referring Physician: AdmtrMaegan Allergies, Adverse Reactions, Alerts Substance Reaction Severity Status Wellbutrin Active Vicodin Nausea and vomiting Active ZyPREXA Lethargic Active Medications cyclobenzaprine 5 mg oral tablet 1 tablet = 5 mg, By Mouth, 2 times a day, 0 Refills, Maintenance, 01/08/15 17:35:00 Start Date: 01/08/15 Status: Ordered docusate sodium 100 mg oral capsule 1 capsule = 100 mg, By Mouth, 2 times a day, PRN as needed for constipation, # 14 capsule, 0 Refills, Maintenance, 03/22/19 10:04:00 EST, Capsule, [facility], 160, cm, 03/22/19 7:34:00 EST, [...] Date: 06/02/18 Stop Date: 06/07/18 Status: Ordered metroNIDAZOLE 500 mg oral tablet 1 tablet = 500 mg, By Mouth, Once, do not drink alcohol may take with food to minimize abdominal discomfort, # 13 tablet, 0 Refills, Soft Stop, 11/04/19 13:37:00 EDT, Tablet, [id number], 160,cm, 07/10/19 12:53:00 EDT, Height, 90.2, kg, 07/09... Start Date: 11/04/19 Status: Ordered permethrin 5% topical cream 1 application, Topically, Once, to skin, neck to feet, remove by washing after 8 to 14 hours. May repeat after 1 week., # 60 Gm, 1 Refills, Soft Stop, 07/10/19 13:37:00 EDT, Cream, [id number], 1 application Topically Once,Instr:to skin, neck... Start Date: 07/10/19 Status: Ordered Wellbutrin By Mouth, 0 Refills, [...] 01/12/15 10:00:00 Start Date: 01/12/15 Status: Ordered Social History Social History Type Response Smoking Status Former smoker; Tobac co user in household: No entered on: 04/11/15 Sex Female
--- OUTSIDE RECORDS SUMMARY | 2022-06-12 22:12 | XMS_ITS | Continuity of Care Document ---
Author Name Unknown Organization [facility] Address [address] [place] [address]- Care Team Providers Care Blueprint Developer Name Role Phone Savanah MACHADO, Kelli Cisneros Primary Care Physician [phone] Encounter [facility] R [id number] Date(s): 07/10/19 - 08/09/19 [facility] [address] [place] [address]- [facility] Attending Physician: Maegan Carter Admitting Physician: Admtr, Maegan Referring Physician: Admtr, Ar8 Allergies, Adverse Reactions, Alerts Substance Reaction Severity [...] 0 Refills, Maintenance, 03/22/19 10:04:00 EST, Capsule, [facility], 160, cm, 03/22/19 7:34:00 EST, [...] Date: 06/09/18 Stop Date: 07/09/18 Status: Ordered permethrin 5% topical cream 1 application, Topically, Once, to skin, neck to feet, remove by washing after 8 to 14 hours. May repeat after 1 week., # 60 Gm, 1 Refills, Soft Stop, 07/10/19 13:37:00 EDT, Cream, [facility] #[id number], 1 application Topically Once,Instr:to skin, neck... Start [...]
--- OUTSIDE RECORDS SUMMARY | 2022-06-12 22:12 | XMS_ITS | Continuity of Care Document ---
Author Name Unknown Organization [facility] Address Unknown Care Team Providers Care Golf Technician Name Role Phone Savanah MACHADO, Kelli Cisneros Primary Care Physician [phone] Encounter [facility] [place] Date(s): 06/24/21 - 07/24/21 [facility] Allergies, Adverse Reactions, Alerts Substance Reaction Severity [...] 0 Refills, Maintenance, 03/22/19 10:04:00 EST, Capsule, [facility], 160, cm, 03/22/19 7:34:00 EST, [...] Refills, Soft Stop, 11/04/19 13:37:00 EDT, Tablet, [facility][id number], 160,cm, 07/10/19 12:53:00 EDT, Height, 90.2, kg, 07/09... Start Date: 11/04/19 Status: Ordered permethrin 5% topical cream 1 application, Topically, Once, to skin, neck to feet, remove by washing after 8 to 14 hours. May repeat after 1 week., # 60 Gm, 1 Refills, Soft Stop, 07/10/19 13:37:00 EDT, Cream, [facility]/pharm[facility] #[id number], 1 application Topically Once,Instr:to [...]
--- OUTSIDE RECORDS SUMMARY | 2022-06-12 22:12 | XMS_ITS | Continuity of Care Document ---
Author Name Unknown Organization [facility] Address [address] [place] [address]- Care Team Providers Care Automation And Controls Instructor Name Role Phone Savanah MACHADO, Kelli Cisneros Primary Care Physician [phone] Encounter [facility] [place] Date(s): 06/22/21 - 07/22/21 [facility] [address] [place] [address]- [place] Allergies, Adverse Reactions, Alerts Substance Reaction Severity [...] 0 Refills, Maintenance, 03/22/19 10:04:00 EST, Capsule, [facility], 160, cm, 03/22/19 7:34:00 [...] Refills, Soft Stop, 11/04/19 13:37:00 EDT, Tablet, [facility]/pharm[facility] #[id number], 160,cm, 07/10/19 12:53:00 EDT, Height, 90.2, kg, 07/09... Start Date: 11/04/19 Status: Ordered permethrin 5% topical cream 1 application, Topically, Once, to skin, neck to feet, remove by washing after 8 to 14 hours. May repeat after 1 week., # 60 Gm, 1 Refills, Soft Stop, 07/10/19 13:37:00 EDT, Cream, [facility]/pharmacy #[id number], 1 application Topically Once,Instr:to skin, neck... [...]
--- OUTSIDE RECORDS SUMMARY | 2022-06-12 22:12 | XMS_ITS | Continuity of Care Document ---
Author Name Unknown Organization [facility] ter Address [address] [place] [address]- Care Team Providers Care Chemical Plant Worker Name Role Phone Kelli Pavon MD Primary Care Physician [phone] [facility] [place] Date(s): 10/31/19 - 10/31/[address] [address]- [facility] Encounter Diagnosis Alcohol intoxication(Final) - 10/31/19 Discharge Disposition: A-D/C Home Attending Physician: Ericka Peterson MD Admitting Physician: Ericka Peterson MD Referring Physician: Not on Staff, Referring [...] 0 Refills, Maintenance, 03/22/19 10:04:00 EST, Capsule, [facility], 160, cm, 03/22/19 7:34:00 [...] Refills, Soft Stop, 07/10/19 13:37:00 EDT, Cream, [facility] #[id number], 1 application Topically Once,Instr:to skin, neck... Start [...] 01/12/15 10:00:00 Start Date: 01/12/15 Status: Ordered Vital Signs Most recent to oldest [Reference Range]: 1 Oxygen Saturation [94-100 %] 99 % (10/31/19 7:54 PM) Pulse Rate [55-90 bpm] 107 bpm *H* (10/31/19 7:54 PM) Blood Pressure [90-138/55-84 mm Hg] 128/ 67mm Hg (10/31/19 7:54 PM) Respiratory Rate [16-30 br/min] 18 br/mi n (10/31/19 7:54 PM) Temperature [96.8-100.4 DegF] 98.0 DegF (10/31/19 7:54 PM) Mode of Delivery (Oxygen) Room air (10/31/19 7:54 PM) Blood pressure sites Arm, right (10/31/19 7:54 PM) Temperature Route Oral (10/31/19 7:54 PM) Social History Social History Type Response Smoking Status Former smoker; Tobac co user in household: No entered on: 04/11/15 Sex
--- OUTSIDE RECORDS SUMMARY | 2022-06-12 22:12 | XMS_ITS | Continuity of Care Document ---
Author Name Unknown Organization [facility] ter Address [address] [place] [address]- Care Team Providers Care Program Director/Traffic Director Name Role Phone Savanah MACHADO, Kelli Cisneros Primary Care Physician En[place] [facility] [place] Date(s): 05/21/22 - 05/22/[address] [address] Discharge Disposition: A-D/C Home Attending Physician: Romulo Villeda DO Admitting Physician: Romulo Villeda DO Referring Physician: Romulo Villeda DO Allergies, Adverse Reactions, Alerts Substance Reaction Severity Status Wellbutrin Active Vicodin Nausea and vomiting Active ZyPREXA Lethargic Active Medications albuterol CFC free 90 mcg/inh inhalation aerosol 2, puffs, Inhalation, Every 4 hours, PRN, # 6.7 Gm, Refills 0, Maintenance, 05/21/22 23:50:00 EDT, Aerosol Start Date: 05/21/22 Status: Ordered LORazepam 0.5 mg oral tablet 2 tablet = 1 mg, By Mouth, 3 times a day, PRN for anxiety, 0 Refills, Maintenance, 05/21/22 23:50:00 EDT, Tablet, Partial fill upon patient request if the prescription is for a schedule II opioid drug. Start Date: 05/21/22 Status: Ordered omeprazole 40 mg oral enteric coated capsule 1 capsule = 40 mg, By Mouth, Daily, take 30min before breakfast, # 30 capsule, 2 Refills, Maintenance, 06/24/21 16:26:00 EDT, EC Capsule, [facility], 160, cm, 07/10/19 12:53:00 EDT, [...] Effective Dates Status Health St atus Informant Anxiety Confirmed Active Asthma Confirmed Active Obese class II Confirmed Active PTSD (post-traumatic stress disorder) Confirmed Active Results Radiology Reports * Exam Date Time Procedure Performing Provider Status 05/22/22 3:46 AM US Pelvic Transvaginal Suma Sorenson; Auth (Verified) Notes: (US Pelvic Transvaginal) Reason For Exam: Pain RESULT: US Pelvic Transvaginal US Pelvic Transabdominal, US Pelvic Transvaginal Reason: Pain Clinical Question(s): ? IUD malposition. COMPARISON: None TECHNIQUE: Transabdominal and transvaginal ultrasound with grayscale and color Doppler analysis. 3-D rendered images were obtained to further evaluate uterine and endometrial morphology. FINDINGS: UTERUS: Size: 6.5 x 4.0 x 5.0 cm, volume 68 cc. Endometrial thickness: 0.4 cm. Morphology: Normal configuration and echotexture. IUD in appropriate position. RIGHT OVARY: Size: 1.8 x 1.3 x 1.9 cm, volume 2.4 cc. Morphology: Normal echotexture. No pathologic cysts or mass. Normal color Doppler appearance. LEFT OVARY: Not visualized. ADNEXA: Normal. No adnexal masses or fluid collections. IMPRESSION: No acute findings in the pelvis. Appropriately positioned IUD. The left ovary is not visualized. The right ovary appears normal. Results were relayed by Cortext by Dr. Ta to Lolly Carnes DO on 05/22/2022 4:31 AM. I have personally reviewed the images and I agree with this report. WSN: [id number] Ordering Physician: Lolly Carnes Dictated By: Herminio Ta MD Dictated Date/Time: 05/22/22 7:01 am Reviewed By: Fazal Dawkins MD Signed By: Fazal Dawkins MD Signed Date/Time: 05/22/22 7:06 am Transcribed By: SNEHA Transcribed Date/Time: 05/22/22 4:32 am * Exam Date Time Procedure Performing Provider Status 05/22/22 3:46 AM US Pelvic Transabdominal Sorenson Noemy; Keenan (Verified) Notes: (US Pelvic Transabdominal) Reason For Exam: Pain RESULT: US Pelvic Transabdominal US Pelvic Transabdominal, US Pelvic Transvaginal Reason: Pain Clinical Question(s): ? IUD malposition. COMPARISON: None TECHNIQUE: Transabdominal and transvaginal ultrasound with grayscale and color Doppler analysis. 3-D rendered images were obtained to further evaluate uterine and endometrial morphology. FINDINGS: UTERUS: Size: 6.5 x 4.0 x 5.0 cm, volume 68 cc. Endometrial thickness: 0.4 cm. Morphology: Normal configuration and echotexture. IUD in appropriate position. RIGHT OVARY: Size: 1.8 x 1.3 x 1.9 cm, volume 2.4 cc. Morphology: Normal echotexture. No pathologic cysts or mass. Normal color Doppler appearance. LEFT OVARY: Not visualized. ADNEXA: Normal. No adnexal masses or fluid collections. IMPRESSION: No acute findings in the pelvis. Appropriately positioned IUD. The left ovary is not visualized. The right ovary appears normal. Results were relayed by Cortext by Dr. Ta to Lolly Carnes DO on 05/22/2022 4:31 AM. I have personally reviewed the images and I agree with this report. WSN: [id number] Ordering Physician: Lolly Carnes Dictated By: Herminio Ta MD Dictated Date/Time: 05/22/22 7:01 am Reviewed By: Fazal Dawkins MD Signed By: Fazal Dawkins MD Signed Date/Time: 05/22/22 7:06 am Transcribed By: SNEHA Transcribed Date/Time: 05/22/22 4:32 am Vital Signs Most recent to oldest [Reference Range]: 1 Height 160 cm (05/21/22 11:33 PM) Weight 94.0 kg (05/21/22 11:35 PM) Oxygen Saturation [94-100 %] 99 % (05/21/22 11:35 PM) Pulse Rate [55-90 bpm] 75 bpm (05/21/22 11:35 PM) Blood Pressure [90-138/55-84 mm Hg] 130/ 72mm Hg (05/21/22 11:35 PM) Respiratory Rate [16-30 br/min] 18 br/mi n (05/21/22 11:35 PM) Temperature [96.8-100.4 DegF] 97.8 DegF (05/21/22 11:35 PM) Mode of Delivery (Oxygen) Room air (05/21/22 11:35 PM) Blood pressure sites Arm, right 1 (05/21/22 11:35 PM) Temperature Route Oral (05/21/22 11:35 PM) Dry Weight 94.0 kg (05/21/22 11:35 PM) Weight Obtained Via Standing scale (05/21/22 11:35 PM) Dry Weight Obtained Via Standing scale (05/21/22 11:35 PM) 1Result Comment: 38cm Social History Social History Type Response Smoking Status Former smoker; Tobac co user in household: No entered on: 04/11/15 Sex Female US Pelvis transvaginal * [facility] , CIS S: TRANSCRICHRISTOPHER Ta MD, Herminio T: RAO Dawkins MD, Fazal: VERIFY Event Display: Result: Authored Date: US Pelvic Transabdominal, US Pelvic Transvaginal Reason: Pain Clinical Question(s): ? IUD malposition. COMPARISON: None TECHNIQUE: Transabdominal and transvaginal ultrasound with grayscale and color Doppler analysis. 3-D rendered images were obtained to further evaluate uterine and endometrial morphology. FINDINGS: UTERUS: Size: 6.5 x 4.0 x 5.0 cm, volume 68 cc. Endometrial thickness: 0.4 cm. Morphology: Normal configuration and echotexture. IUD in appropriate position. RIGHT OVARY: Size: 1.8 x 1.3 x 1.9 cm, volume 2.4 cc. Morphology: Normal echotexture. No pathologic cysts or mass. Normal color Doppler appearance. LEFT OVARY: Not visualized. ADNEXA: Normal. No adnexal masses or fluid collections. IMPRESSION: No acute findings in the pelvis. Appropriately positioned IUD. The left ovary is not visualized. The right ovary appears normal. Results were relayed by Cortext by Dr. Ta to Lolly M Medinah DO on 05/22/2022 4:31 AM. I have personally reviewed the images and I agree with this report. WSN: [id number] Ordering Physician: Lolly Carnes Dictated By: Herminio Ta MD Dictated Date/Time: 05/22/22 7:01 am Reviewed By: Fazal Dawkins MD Signed By: Fazal Dawkins MD Signed Date/Time: 05/22/22 7:06 am Transcribed By: SNEHA Transcribed Date/Time: 05/22/22 4:32 am US Pelvis * [facility] , CIS S: TRANSCRIBE Herminio Ta MD: SIGN Fazal Dawkins MD: VERIFY Event Display: Result: Authored Date: [id number] US Pelvic Transabdominal, US Pelvic Transvaginal Reason: Pain Clinical Question(s): ? IUD malposition. COMPARISON: None TECHNIQUE: Transabdominal and transvaginal ultrasound with grayscale and color Doppler analysis. 3-D rendered images were obtained to further evaluate uterine and endometrial morphology. FINDINGS: UTERUS: Size: 6.5 x 4.0 x 5.0 cm, volume 68 cc. Endometrial thickness: 0.4 cm. Morphology: Normal configuration and echotexture. IUD in appropriate position. RIGHT OVARY: Size: 1.8 x 1.3 x 1.9 cm, volume 2.4 cc. Morphology: Normal echotexture. No pathologic cysts or mass. Normal color Doppler appearance. LEFT OVARY: Not visualized. ADNEXA: Normal. No adnexal masses or fluid collections. IMPRESSION: No acute findings in the pelvis. Appropriately positioned IUD. The left ovary is not visualized. The right ovary appears normal. Results were relayed by Cortext by Dr. Ta to Lolly Carnes DO on 05/22/2022 4:31 AM. I have personally reviewed the images and I agree with this report. WSN: [id number] Ordering Physician: Lolly Carnes Dictated By: Herminio Ta MD Dictated Date/Time: 05/22/22 7:01 am Reviewed By: Fazal Dawkins MD Signed By: Fazal Dawkins MD Signed Date/Time: 05/22/22 7:06 am Transcribed By: SNEHA Transcribed Date/Time: 05/22/22 4:32 am Patient Care team information Care Team Personnel Name: Savanah MACHADO , Kelli Cisneros Position: S Outreach Member Role: PCP Address: Address: [address] [place] [address]- Care Team Related Persons Name: ROCKY MUNIZ Address: [address] [place] [address] Name: MARTINA SALDAÑA Address: home [address] [place] [address]
--- OUTSIDE RECORDS SUMMARY | 2022-06-12 22:12 | XMS_ITS | Continuity of Care Document ---
Author Name Unknown Organization [facility] Address [address] [place] [address]- Care Team Providers Care Airplane Tester Name Role Phone Kelli Pavon MD Primary Care Physician [phone] [id number] - 02/11/22 [facility] [address] [place] [address]- Attending Physician: Caterina Torres NP Admitting Physician: Brian MARTINEZ, Caterina Referring Physician: Kelli Pavon MD Allergies, Adverse Reactions, Alerts Substance Reaction [...] Refills, Maintenance, 06/24/21 16:26:00 EDT, EC Capsule, [facility], 160, cm, 07/10/19 12:53:00 EDT, [...] Name: Savanah MACHADO , Kelli Cisneros Position: [facility] Outreach Member Role: PCP Address: Address: [address] [place] [address]- Care Team Related Persons Name: ROCKY MUNIZ Address: home [address] [place] [address] Name: MARTINA SALDAÑA Address: home [address] [place] [address]
--- OUTSIDE RECORDS SUMMARY | 2022-06-12 22:12 | XMS_ITS | Continuity of Care Document ---
Author Name Unknown Organization [facility] ter Address [address] [place] [id number]- Care Team Providers Care Tire Molder Name Role Phone Savanah MACHADO, Kelli Cisneros Primary Care Physician [phone] [place] [facility] [place]03/[place] - 11/03/[address] [address] Discharge Disposition: A-D/C Home Attending Physician: Kwesi Zaman MD Admitting Physician: Kwesi Zaman MD Referring Physician: Kwsei Zaman MD Allergies, Adverse Reactions, Alerts Substance Reaction [...] Refills, Maintenance, 06/24/21 16:26:00 EDT, EC Capsule, [facility], 160, cm, 07/10/19 12:53:00 EDT, [...] Date: 06/24/21 Status: Ordered Problem List Condition Effective Dates Status Health Status Inform ant Obese class II(Confirmed) Active Vital Signs Most recent to oldest [Reference Range]: 1 2 3 Height 160 cm (11/03/21 4:09 PM) Weight 98.9 kg (11/03/21 4:09 PM) Oxygen Saturation [94-100 %] 100 % (11/03/21 6:04 PM) 96 % (11/03/21 5:49 PM) 96 % (11/03/21 5:39 PM) Pulse Rate [55-90 bpm] 66 bpm (11/03/21 5:49 PM) 77 bpm (11/03/21 4:09 PM) Body Mass Index [18.5-24.99] 38.63 *>HHI* (11/03/21 4:09 PM) Blood Pressure [90-138/55-84 mm Hg] 118/90mm Hg (11/03/21 6:04 PM) 135/67mm Hg (11/03/21 5:49 PM) 126/69mm Hg (11/03/21 5:39 PM) Respiratory Rate [16-30 br/min] 18 br/min (11/03/21 6:04 PM) 17 br/min (11/03/21 5:49 PM) 17 br/min (11/03/21 5:39 PM) Temperature [96.8-100.4 DegF] 97.2 DegF (11/03/21 4:09 PM) Mode of Delivery (Oxygen) Room air (11/03/21 6:04 PM) Room air (11/03/21 5:49 PM) Room air (11/03/21 5:39 PM) Blood pressure sites Arm, left (11/03/21 6:04 PM) Arm, left (11/03/21 5:49 PM) Arm, left (11/03/21 5:39 PM) Temperature Route Temporal (11/03/21 4:09 PM) Social History Social History Type Response Smoking Status Former smoker; Tobac co user in household: No entered on: 04/11/15 Sex Female Care Team Personnel Name: Kelli Pavon MD Address: [address] [place] [id number]
--- OUTSIDE RECORDS SUMMARY | 2022-06-12 22:12 | XMS_ITS | Continuity of Care Document ---
Author Name Unknown Organization [facility] Address [address] [place] [address]- Care Team Providers Care Metal Bonding Helper Name Role Phone Kelli Pavon MD Primary Care Physician [id number] - 12/06/21 [facility] [address] [place] [address]- Allergies, Adverse Reactions, Alerts Substance Reaction Severity [...] Refills, Maintenance, 06/24/21 16:26:00 EDT, EC Capsule, [facility], 160, cm, 07/10/19 12:53:00 EDT, [...] Female Patient Care team information Personnel Name: Kelli Pavon MD Address: Address: [address] [place] [address]-
--- OUTSIDE RECORDS SUMMARY | 2022-06-12 22:12 | XMS_ITS | Continuity of Care Document ---
Author Name Unknown Organization [facility] Address [address] [place] [address]- Care Team Providers Care Pediatric Dermatologist Name Role Phone Savanah MACHADO, Kelli Cisneros Primary Care Physician [facility] Date(s): 06/24/21 - 07/24/21 [facility] [address] [place], [place] [address] Attending Physician: Raul, Maegan Admitting Physician: Admtr, Maegan Referring Physician: Admtr, [...] 0 Refills, Maintenance, 03/22/19 10:04:00 EST, Capsule, [facility], 160, cm, 03/22/19 7:34:00 EST, [...] Refills, Soft Stop, 11/04/19 13:37:00 EDT, Tablet, [facility][id number], 160,cm, 07/10/19 12:53:00 EDT, Height, 90.2, kg, 07/09... Start Date: 11/04/19 Status: Ordered permethrin 5% topical cream 1 application, Topically, Once, to skin, neck to feet, remove by washing after 8 to 14 hours. May repeat after 1 week., # 60 Gm, 1 Refills, Soft Stop, 07/10/19 13:37:00 EDT, Cream, [id number], 1 application Topically Once,Instr:to skin, neck... [...]
--- OUTSIDE RECORDS SUMMARY | 2022-06-12 22:12 | XMS_ITS | Continuity of Care Document ---
Author Name Unknown Organization [facility] Address [address] [place] [address]- Care Team Providers Care Slope Runner Name Role Phone Savanah MACHADO, Kelli Cisneros Primary Care Physician Encounter [facility] [id number] Date(s): 07/10/19 - 07/17/19 [facility] [address] [place] [address]- [facility] Attending Physician: Yovani MACHADO, Marisol Referring Physician: Kelli Pavon MD Allergies, Adverse Reactions, Alerts Substance Reaction Severity Status Wellbutrin Active Vicodin Nausea and vomiting Active ZyPREXA Lethargic Active Medications ciclopirox 0.77% topical cream 1 application, Topically, 2 times a day, for 14 days, to affected area on feet for fungal infection, # 30 Gm, 0 Refills, Acute 07/24/19 13:35:00 EDT, 07/10/19 13:35:00 EDT, Cream, [id number],1 application Topically 2 times a day,x14 days,Ins... Start Date: 07/10/19 Stop Date: 07/24/19 Status: Ordered cyclobenzaprine 5 mg oral tablet 1 tablet = 5 mg, By Mouth, 2 times a day, 0 Refills, Maintenance, 01/08/15 17:35:00 Start Date: 01/08/15 Status: Ordered docusate sodium 100 mg oral capsule 1 capsule = 100 mg, By Mouth, 2 times a day, PRN as needed for constipation, # 14 capsule, 0 Refills, Maintenance, 03/22/19 10:04:00 EST, Capsule, [facility], 160, cm, 03/22/19 7:34:00 [...] Date: 06/02/18 Stop Date: 06/07/18 Status: Ordered mupirocin 2% topical ointment 1 application, Topically, Daily, for 14 days, apply a thin film to burn area, # 22 Gm, 0 Refills, Acute 07/24/19 13:35:00 EDT, 07/10/19 13:35:00 EDT, [facility] #[id number], 1 application Topically Daily,x14 days,Instr:apply a thin film to burn area, 16... Start Date: 07/10/19 Stop Date: 07/24/19 Status: Ordered omeprazole 40 mg oral enteric [...] Refills, Soft Stop, 07/10/19 13:37:00 EDT, Cream, [facility] #[id number], 1 application Topically Once,Instr:to skin, [...] oldest [Reference Range]: 1 Height 160 cm (07/10/19 12:53 PM) Weight 90.2 kg (07/10/19 12:53 PM) Oxygen Saturation [94-100 %] 100 % (07/10/19 12:53 PM) Pulse Rate [55-90 bpm] 67 bpm (07/10/19 12:53 PM) Body Mass Index [18.5-24.99] 35.23 *>HHI* (07/10/19 12:53 PM) Blood Pressure [90-138/55-84 mm Hg] 115/ 67mm Hg (07/10/19 12:53 PM) Respiratory Rate [16-30 br/min] 18 br/mi n (07/10/19 12:53 PM) Temperature [96.8-100.4 DegF] 98.5 DegF (07/10/19 12:53 PM) Mode of Delivery (Oxygen) Room air (07/10/19 12:53 PM) Blood pressure sites Arm, right (07/10/19 12:53 PM) Temperature Route Oral (07/10/19 12:53 PM) Dry Weight 90.2 kg (07/10/19 12:53 PM) Weight Obtained Via Standing scale (07/10/19 12:53 PM) Dry Weight Obtained Via Standing scale (07/10/19 12:53 PM) Social History Social History Type Response Smoking Status Former smoker; Tobac co user in household: No entered on: 04/11/15 Sex
--- OUTSIDE RECORDS SUMMARY | 2022-06-12 22:12 | XMS_ITS | Continuity of Care Document ---
Author Name Unknown Organization [facility] ter Address [address] [place] [address]- Care Team Providers Care Wood Strip Block Floor Installer Name Role Phone Savanah MACHADO, Kelli Cisneros Primary Care Physician Encounter [facility] Date(s): 01/31/22 - 01/31/[address] [address]- Encounter Diagnosis Rash(Final) - 01/31/22 Discharge Disposition: A-D/C Home Attending Physician: Sara Banks MD Admitting Physician: Sara Banks MD Referring Physician: Not on Staff, Referring [...] List Condition Confirmation Course Effective Dates Status [facility] Informant Obese class II Confirmed Active Results Orders for Microbiology Reports Name Date Group A Strep Screen and Culture (GROUP A STREP SCREEN AND CULTURE) 01/31/22 Microbiology Reports TEST:Group A Strep Screen and Culture STATUS:Unauthenticated BODY SITE: SOURCE:THROAT COLLECTED DATE/TIME:01/31/22 12:45 PM Group A Strep Screen and Culture SPECIMEN DESCRIPTION : THROAT SWAB SPECIAL REQUESTS : NONE DIRECT EXAM : RAPID GROUP A RESULT IS NEGATIVE, REFER TO CULTURE RESULT. REPORT STATUS : PRELIMINARY REPORT Vital Signs Most recent to oldest [Reference Range]: 1 2 3 Oxygen Saturation [94-100 %] 99 % (01/31/22 2:22 PM) 99 % (01/31/22 12:34 PM) 99 % (01/31/22 10:41 AM) Pulse Rate [55-90 bpm] 74 bpm (01/31/22 2:22 PM) 72 bpm (01/31/22 12:34 PM) 70 bpm (01/31/22 10:41 AM) Blood Pressure [90-138/55-84 mm Hg] 125/76mm Hg (01/31/22 2:22 PM) 126/69mm Hg (01/31/22 12:34 PM) 121/72mm Hg (01/31/22 10:41 AM) Respiratory Rate [16-30 br/min] 18 br/min (01/31/22 2:22 PM) 18 br/min (01/31/22 12:34 PM) 18 br/min (01/31/22 10:41 AM) Temperature [96.8-100.4 DegF] 98.4 DegF (01/31/22 2:22 PM) 98.3 DegF (01/31/22 12:34 PM) 98.4 DegF (01/31/22 10:41 AM) Mode of Delivery (Oxygen) Room air (01/31/22 2:22 PM) Room air (01/31/22 12:34 PM) Room air (01/31/22 10:41 AM) Temperature Route Oral (01/31/22 2:22 PM) Oral (01/31/22 12:34 PM) Oral (01/31/22 10:41 AM) Social History Social History Type Response Smoking Status Former smoker; Tobac co user in household: No entered on: 04/11/15 Sex Female Note * Celia Chau MD: PERFORM Event Display: Patient Education Leaflets Authored Date: [id number] Acute Viral Pharyngitis (Sore Throat) ?? [id number] Acute Viral Pharyngitis (Sore Throat) You or your child have a sore throat (pharyngitis). This infection is caused by a virus. It??can cause throat pain that is worse when swallowing, aching all over, headache,??and fever. The infection may be spread by coughing, kissing,??or touching others after touching your mouth or nose. Antibiotic medicines don't work against viruses. They are not used for treating this illness. Home care ??? If symptoms are severe, you or your child should rest at home. Return to work or school when you or your child feel well enough.? You or your child should drink plenty of fluids to prevent dehydration. ??? Adults and children 5 years and older can use throat lozenges or numbing throat sprays to help reduce pain. Gargling with warm saltwater will also help reduce throat pain. Dissolve 1/2teaspoon of salt in 1 glass of warm water. Children can sip on juice or an ice pop. Children 5 years and older can also suck on a lollipop or hard candy. (Hard candy and lozenges can be a choking hazard in children younger than 5 years.) ??? Don???t eat salty or spicy foods or give them to your child. These can be irritating to the throat. Medicines for a child: You can give your child acetaminophen for fever, fussiness, or discomfort. In babies over 6 months of age, you may use ibuprofen or acetaminophen. If your child has chronic liver or kidney disease or ever had a stomach ulcer or gastrointestinal bleeding, talk with your child???s healthcare provider before giving these medicines. Aspirin should never be used by any child under 18 years of age who has a fever. It may cause severe liver damage and . Don't give your child any other medicine without first asking your child's provider. Medicines for an adult: You may use acetaminophen, naproxen, or ibuprofen to control pain or fever,unless another medicine was prescribed for this. If you have chronic liver or kidney disease or ever had a stomach ulcer or gastrointestinal bleeding, talk with your healthcare provider before using these medicines. ?? Follow-up care Follow up with a healthcare provider, or as advised, if you or your child aren't getting better over the next week. ?? When to get medical advice Call your healthcare provider right away if any of these occur: ??? Fever of 100.4??F (38??C) or higher, or as advised by the provider (see Fever and children below)? New or worsening ear pain, sinus pain, or headache ??? Painful lumps in the back of neck ??? Stiff neck ??? Lymph nodes are getting larger ??? Can???t open mouth wide due to throat pain ???New rash ??? Other symptoms are getting worse Call 911 Call 911 right away if any of these occur: ? Trouble breathing or noisy breathing ??? Muffled voice ??? Can't swallow liquids, a lot of drooling, or any other symptoms that may mean worsening swelling in the throat ??? Signs of dehydration such as very dark urine or no urine, sunken eyes, dizziness ? Fever and children Use a digital thermometer to check your child???s temperature. Don???t use a mercury thermometer. There are different kinds and uses of digital thermometers. They include: ??? Rectal. For children younger than 3 years, a rectal temperature is the most accurate. ??? Forehead (temporal). This works for children age 3 months and older. If a child under 3 months old has signs of illness, this can be used for a first pass. The provider may want to confirm with a rectal temperature. ??? Ear (tympanic). Ear temperatures are accurate after 6 months of age, but not before. ??? Armpit (axillary). This is the least reliable but may be used for a first pass to check a child of any age with signs of illness. The provider may want to confirm with a rectal temperature. ??? Mouth (oral). Don???t use a thermometer in your child???s mouth until they are at least 4 years old. Use the rectal thermometer with care. Follow the product maker???s directions for correct use. Insert it gently. Label it and make sure it???s not used in the mouth. It may pass on germs from the stool. If you don???t feel OK using a rectal thermometer, ask the healthcare provider what type to use instead. When you talk with any healthcare provider about your child???s fever, tell them which typeyou used. ?? Last Reviewed Date: 2021 ?? [id number] [employer]. All rights reserved. This information is not intended as a substitute for professional medical care. Always follow your healthcare professional's instructions. ?? Patient Care team information Care Team Personnel Name: Savanah MACHADO , Kelli Cisneros Position: [facility] Outreach Member Role: PCP Address: Address: [address] [place] [address]- Name: Paz Marin RN Position: [facility] ED RN W/OE and Tasks Member Role: Patient Care Provider Name: Obed Lopez Position: [facility] ED TA [facility] Name: Gabrielle Griffith RN Position: [facility] ED RN W/OE and Tasks Member Role: Patient Care Provider Name: Sara Banks MD Position: [facility] Resident Member Role: Admitting Physician Address: Address: [address] [place] [address]- Name: Celia Chau MD Position: [facility] Resident Member Role: ED Resident Address: Address: [address] [place] [address]- Care Team Related Persons Name: ROCKY MUNIZ Address: home [address] [place] [address] Name: MARTINA SALDAÑA Address: home [address] [place] [address]
--- OUTSIDE RECORDS SUMMARY | 2022-06-12 22:12 | XMS_ITS | Continuity of Care Document ---
Author Name Unknown Organization [facility] [place] Address [address] [place] [address]- Care Team Providers Care Ax Survey Worker Name Role Phone Kelli Pavon MD Primary Care Physician Encounter [facility] Date(s): 11/16/21 - 12/16/21 [facility] [place] [address] [place] [address]- Allergies, Adverse Reactions, Alerts Substance Reaction Severity [...] Refills, Maintenance, 06/24/21 16:26:00 EDT, EC Capsule, [facility], 160, cm, 07/10/19 12:53:00 EDT, Height, [...] , Kelli M Address: Address: [address] [facility] [place] [address]-
--- NOTE | 2022-06-12 22:53 | ED_ITS ---
HPI - General Adult General Chief complaint: Abdominal Pain Stated complaint: ABD PAIN PER EMS Time Seen by Provider: 06/12/22 22:21 Source: patient Mode of arrival: ambulatory Limitations: no limitations History of Present Illness HPI narrative: 37 yold female with pmh of Gastritis presents to the ED for epigastic acid burning pain after eating fried spicy pork. Patient states she is not supposed to eat spicy food, and she did not have her sucralfate. Patient states pain is improving. Patient denies any chest pain or shortness of breath. Patient denies any lower abdominal pain. Related Data Previous Rx's Medication Instructions Recorded aluminum hydrox-magnesium carb 254 10 ml PO QID PRN dyspepsia #355 mL 03/12/21 mg-237.5 mg/5 mL oral suspension (Gaviscon Extra Strength) omeprazole 20 mg capsule,delayed 20 mg PO DAILY 30 days #30 caps 03/12/21 release ondansetron 4 mg disintegrating 4 mg PO Q6-8H PRN nausea and 03/12/21 tablet vomiting #14 tabs sucralfate 1 gram tablet (Carafate) 1 g PO BID #30 tabs 03/13/21 amoxicillin 500 mg tablet 500 mg PO BID #20 tabs 01/27/22 Allergies Allergy/AdvReac Type Severity Reaction Status Date / Time acetaminophen [From VICODIN] Allergy Unknown VOMITING Verified 01/26/22 22:28 bupropion [From WELLBUTRIN] Allergy Unknown MANIC Verified 01/26/22 22:28 hydrocodone [From VICODIN] Allergy Unknown VOMITING Verified 01/26/22 22:28 olanzapine [From ZYPREXA] Allergy Unknown HARD TO Verified 01/26/22 22:28 WAKE UP Review of Systems Review of Systems: Epigastric acid burning sensation. Yes all other systems are reviewed and are negative PMFSH Past Medical History Medical History Asthma Social History Social History Alcohol intake: current Alcohol intake frequency: holidays/special occasions only Smoked in Last 30 Days: No Use of substances other than those prescribed or required for medical reasons: Yes Substance Use Type: Marijuana Advance Directives: No Advance Directives Information Provided: No Patient : No Physical Exam ED Vital Signs: Vital Signs - 24 hr 06/12/22 21:56 06/12/22 22:01 06/13/22 00:53 Temperature 98.0 F Pulse Rate 72 72 87 Respiratory Rate 16 16 15 Blood Pressure 139/91 H 138/80 Pulse Oximetry 99 98 98 Oxygen Delivery Method Room Air Room Air Room Air 06/13/22 00:57 06/13/22 02:10 Temperature 98.0 F Pulse Rate 76 80 Respiratory Rate 17 16 Blood Pressure 105/60 112/86 Pulse Oximetry 100 99 Oxygen Delivery Method Room Air Room Air BMI result Body Mass Index 43.0 Const General: cooperative, healthy appearing, comfortable, no acute distress, well developed, alert, awake and Physically active Orientation/consciousness: oriented to person, oriented to place, oriented to time and patient oriented x3 HENMT Head: Yes normal to inspection, Yes No palpable skull fracture present, Yes normocephalic, Yes atraumatic and No abrasion Eyes General: appearance normal, both eyes and all related structures Neck Neck: Yes normal visual inspection, Yes full ROM, Yes no lymphadenopathy, Yes no meningeal signs, Yes trachea midline, Yes supple, No anterior neck swelling and No tender Chest Chest palpation & inspection: normal inspection of the chest and normal palpation of entire chest wall Resp Effort & Inspection: normal respiratory effort and able to speak in complete sentences Auscultation: clear to auscultation bilaterally Cardio Jugular venous distension: no JVD Heart sounds: S1 normal heart sound present and S2 normal heart sound present GI Inspection: Yes normal to inspection Palpation (GI): Soft to palpation, not firm, Tenderness to palpation present (GI) in the epigastrum (mild); not in the LLQ, not in the RLQ, not in the LUQ, not in the RUQ, not at McBurney's point, not periumbilically, not suprapubicly, Jamison's sign negative, obturator sign negative, psoas sign negative, with no rebound tenderness and Rovsing's sign negative, no guarding and not rigid General: No CVA tenderness and Yes no CVA tenderness Back/Spine/Pelvis Back: no CVA tenderness, No CVA tenderness and No back tenderness Skin General skin exam: no rashes or lesions noted and elasticity normal Neuro General: oriented to person, oriented to place, oriented to time, patient oriented x3, gait normal, tone normal, moves all extremities, Normal light touch and pain sensation, no meningeal signs, no focal motor deficits, CN's II-XI intact bilaterally and normal sensation to monofilament Extrem General: Yes normal to inspection and Yes full ROM Psych Appearance: grossly normal, well kempt and not disheveled Course Course Course Narrative: Patient feels better watching television. Will do basic labs and give her GI cocktail. Reevaluation(s) Reevaluation #1: Patient labs are normal will be discharged. Time: 01:18 Medications Administered Discontinued Medications Generic Name Dose Route Start Last Admin Trade Name Jamilah PRN Reason Stop Dose Admin Al Hydroxide/Mg Hydroxide 30 ml 06/12/22 22:50 06/12/22 22:56 Magnesium Hydrox/Alum Hydrox 30 Ml Oral.Susp PO 06/12/22 22:51 30 ml ONCE ONE Administration Belladonna Alkaloids/Phenobarbital 10 ml 06/12/22 22:50 06/12/22 22:56 Phenobarb/Hyoscy/Atropine/Scop 10 Ml Elixir PO 06/12/22 22:51 10 ml ONCE ONE Administration Lidocaine HCl 15 ml 06/12/22 22:50 06/12/22 22:56 Lidocaine Hcl Viscous 2 % 15 Ml Solution MUCOUS MEM 06/12/22 22:51 15 ml ONCE ONE Administration Lorazepam 1 mg 06/13/22 02:09 06/13/22 02:14 Lorazepam 1 Mg Tablet PO 06/13/22 02:10 1 mg ONCE ONE Administration Sucralfate 1 gm 06/12/22 22:50 06/12/22 22:56 Sucralfate Oral Suspension 1 Gm/10 Ml Oral.Susp PO 06/12/22 22:51 1 gm ONCE ONE Administration Medical Decision Making Medical Decision Making [facility] Narrative: 37-year-old female with history of acid reflux presents to ED for aspirating sensation at the ER fried spicy pork. Patient feels better in the ER. Patient's pain resolved after receiving GI cocktail. Labs are at baseline/normal. No need for any imaging not suspecting pancreatitis or cholecystitis. Patient ready for discharge. Negative for any chest pain or shortness of breath. Not suspect any cardiac issue. No need for any CT scan or ultrasound Differential Diagnosis Differential Diagnoses: The differential diagnosis associated with the presentation includes (Cholecystitis, pancreatitis, acid reflux) Admission/Observation Consideration of admission/observation: Escalation of care including admission/observation considered Lab Data MDM Lab Attestation statement: I reviewed the patient's lab results. 06/12/22 23:33 06/12/22 23:33 Labs: Lab Results 06/12/22 06/12/22 Range/Units 23:33 23:33 WBC 11.2 H (4.8-10.8) X10*3/uL RBC 4.26 (4.20-5.50) X10*6/uL Hgb 12.1 (12.0-16.0) g/dl Hct 37.0 (37.0-47.0) % MCV 86.9 (80.0-98.0) fL MCH 28.4 (27.0-33.0) pg MCHC 32.7 (31.0-35.0) g/dl RDW 13.2 (11.0-16.0) % Plt Count 270 (160-400) X10*3/uL MPV 10.4 (9.4-12.3) fL Immature Gran % (Auto) 0.4 (0.0-0.4) % Neut % (Auto) 82.0 H (45-73) % Lymph % (Auto) 12.1 L (20-40) % Pickens % (Auto) 3.7 (2-11) % Eos % (Auto) 1.6 (0-4) % Baso % (Auto) 0.2 (0-2) % Lymph # (Auto) 1.4 (1.2-4.9) X10*3/uL Pickens # (Auto) 0.4 (0.1-1.2) X10*3/uL Eos # (Auto) 0.2 (0.0-0.4) X10*3/uL Baso # (Auto) 0.0 (0.0-0.2) X10*3/uL Abs Immat Gran (auto) 0.04 H (0.00-0.03) X10*3/uL Absolute Neuts (auto) 9.2 H (2.0-8.3) x10*3/uL Absolute Nucleated RBC 0.000 (0.0-0.012) X10*3/uL Nucleated RBC % (auto) 0.0 (0.0-0.2) /100WBC Sodium 139 (135-145) mmol/L Potassium 4.0 (3.3-5.1) mmol/L Chloride 105 (96-108) mmol/L Carbon Dioxide 29 (22-29) mmol/L Anion Gap 9 L (12-20) BUN 11 (9-16) mg/dL Creatinine 0.65 (0.5-1.4) mg/dL Estim Creat Clear Calc 143.8 Estimated GFR > 60 Random Glucose 102 (60-115) mg/dL Calcium 9.5 (8.4-10.2) mg/dL Total Bilirubin 0.6 (0.0-1.0) mg/dL AST 54 H (5-31) U/L ALT 51 H (0-31) U/L Alkaline Phosphatase 75 (39-117) U/L Total Protein 6.7 (6.5-8.0) g/dL Albumin 4.0 (3.5-5.0) g/dL Lipase 37 (8-78) U/L Beta HCG, Quant < 2 mIU/mL Prescription Management Recommended to continue taking her sucralfate Discharge Plan Discharge Clinical Impression: Gastroesophageal reflux disease Patient Disposition: Home, Self-Care Instructions: Gastroesophageal Reflux Disease (ED) Additional Instructions: Recommend being compliant with sucralfate. Return to the ED for worsening abdominal pain, nausea, vomiting, fever, chills, inability tolerate solid food/liquid, or any other concerning symptoms. Please follow-up with the primary care provider and machine engraver. Prescriptions: No Action omeprazole 20 mg capsule,delayed release(DR/EC) 20 mg PO DAILY 30 Days Qty: 30 0RF Gaviscon Extra Strength 254-237.5 mg/5 mL suspension 10 ml PO QID PRN (Reason: dyspepsia) Qty: 355 0RF ondansetron 4 mg tablet,disintegrating 4 mg PO Q6-8H PRN (Reason: nausea and vomiting) Qty: 14 0RF sucralfate [Carafate] 1 gram tablet 1 g PO BID Qty: 30 0RF amoxicillin 500 mg tablet 500 mg PO BID Qty: 20 0RF Stand Alone Forms: Work/School Release Interventions: ED Discharge Assessment Last Done: 06/13/22 02:24 Discharge Date/Time: 06/13/22 02:25 Print Language: Peruvian
[2022-06-12] MEDS: Magnesium Hydrox/Alum Hydrox 30 ML ORAL.SUSP PO (22:56)
[2022-06-12] MEDS: Sucralfate Oral Suspension 1 GM/10 ML ORAL.SUSP PO (22:56)
[2022-06-12] MEDS: PHENobarb/Hyoscy/Atropine/Scop 10 ML ELIXIR PO (22:56)
[2022-06-12] MEDS: Lidocaine HCl Viscous 2 % 15 ML SOLUTION MUCOUS MEM (22:56)
[2022-06-12 23:37] LABS: MANUAL DIFF FLAG NO
[2022-06-12 23:38] LABS: Basophils Percent Auto 0.2 % (0-2); Eosinophils Absolute Auto 0.2 X10*3/uL (0.0-0.4); Eosinophils Percent Auto 1.6 % (0-4); Hemoglobin 12.1 g/dl (12.0-16.0); Imm Gran Abs Auto 0.04 X10*3/uL (0.00-0.03); Imm Gran Pct Auto 0.4 % (0.0-0.4); Lymphocytes Absolute Auto 1.4 X10*3/uL (1.2-4.9); Lymphocytes Percent Auto 12.1 % (20-40); Mean Corpuscular HGB Conc 32.7 g/dl (31.0-35.0); Mean Corpuscular Hemoglobin 28.4 pg (27.0-33.0); Mean Corpuscular Volume 86.9 fL (80.0-98.0); Mean Platelet Volume 10.4 fL (9.4-12.3); Monocytes Absolute Auto 0.4 X10*3/uL (0.1-1.2); Monocytes Percent Auto 3.7 % (2-11); Neutrophils Absolute Auto 9.2 x10*3/uL (2.0-8.3); Platelet Count 270 X10*3/uL (160-400); Red Blood Count 4.26 X10*6/uL (4.20-5.50); Red Cell Distribution Width 13.2 % (11.0-16.0); White Blood Count 11.2 X10*3/uL (4.8-10.8)
[2022-06-12 23:57] LABS: Alanine Aminotransferase 51 U/L (0-31); Alkaline Phosphatase 75 U/L (39-117); Anion Gap 9 (12-20); Aspartate Amino Transferase 54 U/L (5-31); Bilirubin Total 0.6 mg/dL (0.0-1.0); Blood Urea Nitrogen 11 mg/dL (9-16); Calcium 9.5 mg/dL (8.4-10.2); Carbon Dioxide 29 mmol/L (22-29); Chloride 105 mmol/L (96-108); Creatinine Clr Calc Pharmacy 143.8; Estimated Glomerular Filt Rate > 60; Glucose Random 102 mg/dL (60-115); Lipase 37 U/L (8-78); Sodium 139 mmol/L (135-145); Total Protein 6.7 g/dL (6.5-8.0)
[2022-06-13 00:53] VITALS: BP 138/80; PULSE 87; RESP 15; O2SAT 98
[2022-06-13 00:57] VITALS: BP 105/60; PULSE 76; RESP 17; TEMP 36.7; O2SAT 100
--- NOTE | 2022-06-13 01:44 | PC.NURSE ---
pt reporting that she feels much better at this time, provided with saltines to advance diet at this time
[2022-06-13 01:54] LABS: HCG Quantitative < 2 mIU/mL
--- NOTE | 2022-06-13 02:04 | PC.NURSE ---
pt reporting to this RN now that my pain has not been addressed, my anxiety has not been fixed and I never received a nebulizer . This RN explained to the pt that there was no medical need for a nebulizer treatment as her oxygen has been consistently good, her respirations have been even and unlabored with no apparent distress. Pt also reports you all did nothing for my anxiety, I have been asking for something for it since I arrived . Pt only asked for an anxiety medication once upon arrival and that it is. Pt slept for about an hour, demonstrating no signs of anxiety.
[2022-06-13 02:10] VITALS: BP 112/86; PULSE 80; RESP 16; O2SAT 99
--- NOTE | 2022-06-13 02:11 | PC.NURSE ---
GLORIA Lara in to speak with the patient
[2022-06-13] MEDS: LORazepam 1 MG TABLET PO (02:14)
== END 2022-06-13 02:25 | disposition home or self-care (01) ==
PROVIDERS: Physician Assistant; Emergency Provider Emergency Medicine
DX: K21.9 Gastro-esophageal reflux disease without esophagitis (principal); F41.9 Anxiety disorder, unspecified; Z79.899 Other long term (current) drug therapy
CPT/HCPCS: 36415; 80053; 83690; 84702; 85025; 99283; 99284

== ENCOUNTER 2022-06-14 22:00 | Emergency (ER) | payer MEDICAID, SELFPAY ==
[2022-06-14 22:34] VITALS: BP 117/63; PULSE 79; RESP 20; TEMP 36; O2SAT 99; BMI 26.9
[2022-06-14 23:22] LABS: Basophils Percent Auto 0.3 % (0-2); Eosinophils Absolute Auto 0.4 X10*3/uL (0.0-0.4); Eosinophils Percent Auto 3.8 % (0-4); Hematocrit 41.4 % (37.0-47.0); Hemoglobin 13.9 g/dl (12.0-16.0); Imm Gran Abs Auto 0.04 X10*3/uL (0.00-0.03); Imm Gran Pct Auto 0.4 % (0.0-0.4); Lymphocytes Absolute Auto 1.9 X10*3/uL (1.2-4.9); Lymphocytes Percent Auto 17.6 % (20-40); MANUAL DIFF FLAG NO; Mean Corpuscular HGB Conc 33.6 g/dl (31.0-35.0); Mean Corpuscular Hemoglobin 29.3 pg (27.0-33.0); Mean Corpuscular Volume 87.2 fL (80.0-98.0); Mean Platelet Volume 10.2 fL (9.4-12.3); Monocytes Absolute Auto 0.5 X10*3/uL (0.1-1.2); Monocytes Percent Auto 4.6 % (2-11); Neutrophils Absolute Auto 7.9 x10*3/uL (2.0-8.3); Neutrophils Percent Auto 73.3 % (45-73); Platelet Count 330 X10*3/uL (160-400); Red Blood Count 4.75 X10*6/uL (4.20-5.50); White Blood Count 10.8 X10*3/uL (4.8-10.8)
[2022-06-14 23:40] LABS: Anion Gap 12 (12-20); Blood Urea Nitrogen 9 mg/dL (9-16); Calcium 9.5 mg/dL (8.4-10.2); Carbon Dioxide 30 mmol/L (22-29); Chloride 102 mmol/L (96-108); Creatinine Clr Calc Pharmacy 111.9; Estimated Glomerular Filt Rate > 60; Glucose Random 106 mg/dL (60-115); Potassium 4.1 mmol/L (3.3-5.1); Sodium 140 mmol/L (135-145)
== END 2022-06-15 02:36 | disposition left against medical advice (07) ==
LOC: HO.ED 06-15 02:30
PROVIDERS: Emergency Provider Emergency Medicine
DX: R10.9 Unspecified abdominal pain (principal)
CPT/HCPCS: 36415; 80048; 85025; 99281; 99283

== ENCOUNTER 2022-06-15 16:55 | Emergency (ER) | payer MEDICAID, SELFPAY ==
[2022-06-15 17:21] VITALS: BP 144/89; PULSE 78; O2SAT 100
--- NOTE | 2022-06-15 17:37 | ED.ABDPAIN ---
HPI - Abdominal Pain General Chief Complaint: Abdominal Pain Stated Complaint: Abdominal pain Related Data Previous Rx's Medication Instructions Recorded aluminum hydrox-magnesium carb 254 10 ml PO QID PRN dyspepsia #355 mL 03/12/21 mg-237.5 mg/5 mL oral suspension (Gaviscon Extra Strength) omeprazole 20 mg capsule,delayed 20 mg PO DAILY 30 days #30 caps 03/12/21 release ondansetron 4 mg disintegrating 4 mg PO Q6-8H PRN nausea and 03/12/21 tablet vomiting #14 tabs sucralfate 1 gram tablet (Carafate) 1 g PO BID #30 tabs 03/13/21 amoxicillin 500 mg tablet 500 mg PO BID #20 tabs 01/27/22 Allergies Allergy/AdvReac Type Severity Reaction Status Date / Time acetaminophen [From VICODIN] Allergy Unknown VOMITING Verified 01/26/22 22:28 bupropion [From WELLBUTRIN] Allergy Unknown MANIC Verified 01/26/22 22:28 hydrocodone [From VICODIN] Allergy Unknown VOMITING Verified 01/26/22 22:28 olanzapine [From ZYPREXA] Allergy Unknown HARD TO Verified 01/26/22 22:28 WAKE UP [facility] Past Medical History Medical History Asthma Social History Social History Alcohol intake: current Alcohol intake frequency: holidays/special occasions only Substance Use Type: Marijuana Advance Directives: No Advance Directives Information Provided: No Physical Exam ED Vital Signs: BMI result Body Mass Index 35.4 Course Course Course Narrative: RME: 37yo F w/PMHx asthma, gastritis c/o lower abdominal pain radiating to epigastric region & back x months. Denies urinary sx, vaginal bleeding/discharge. presented to the ED yesterday but LWT'd. Had labs on 06/12 & 06/14, only notable for mildly elevated AST/ALT on the . Abdomen soft and nontender EKG, UA, U-preg ordered Full HPI, ROS and PE to be performed by primary ED provider. Discharge Plan Discharge Clinical Impression: Care refused by patient Patient Disposition: Elopement Prescriptions: No Action omeprazole 20 mg capsule,delayed release(DR/EC) 20 mg PO DAILY 30 Days Qty: 30 0RF Gaviscon Extra Strength 254-237.5 mg/5 mL suspension 10 ml PO QID PRN (Reason: dyspepsia) Qty: 355 0RF ondansetron 4 mg tablet,disintegrating 4 mg PO Q6-8H PRN (Reason: nausea and vomiting) Qty: 14 0RF sucralfate [Carafate] 1 gram tablet 1 g PO BID Qty: 30 0RF amoxicillin 500 mg tablet 500 mg PO BID Qty: 20 0RF Interventions: LWBS Worksheet Last Done: 06/15/22 19:32 Discharge Date/Time: 06/15/22 19:33
[2022-06-15 17:38] VITALS: BP 124/62; PULSE 80; RESP 16; TEMP 36.3; O2SAT 100; BMI 35.4
== END 2022-06-15 19:33 | disposition left against medical advice (07) ==
PROVIDERS: Emergency Provider Emergency Medicine
DX: R10.9 Unspecified abdominal pain (principal); F12.90 Cannabis use, unspecified, uncomplicated; Z79.899 Other long term (current) drug therapy
CPT/HCPCS: 99281

== ENCOUNTER 2022-09-08 13:15 | Outpatient (REF) | payer MEDICAID, SELFPAY ==
--- NOTE | ~2022-09-08 | XR_ITS ---
EXAMINATION: XR ABDOMEN KUB CLINICAL INDICATION: Order was for KUB and upright. Diagnosis history of nephrolithiasis for left kidney stone. COMPARISON: None available. TECHNIQUE: 2 AP views of the abdomen. FINDINGS: Nonobstructive bowel gas pattern. Moderate amount of stool in the colon. Evaluation of the kidneys is limited due to overlying bowel. No definitive radiopaque renal calculus is identified, although evaluation is limited due to overlying bowel. Moderate bilateral lateral acetabular hypertrophic change on limited views of the bilateral hips. XR/XR KUB IMPRESSION: No definitive radiopaque renal calculus is identified, although evaluation is limited due to overlying bowel.
== END 2022-09-08 13:16 | disposition home or self-care (01) ==
LOC: HO.HHCX 13:15
PROVIDERS: Visit Provider Student in an Organized Health Care Education/Training Program
DX: Z87.442 Personal history of urinary calculi (principal)
CPT/HCPCS: 74018

== ENCOUNTER 2022-10-01 11:44 | Outpatient (REF) | payer MEDICAID, SELFPAY ==
--- NOTE | ~2022-10-01 | US_ITS ---
EXAMINATION: US RETROPERITONEAL LIMITED (RENAL ONLY) CLINICAL INFORMATION: History of nephrolithiasis. COMPARISON: KUB dated 09/08/2022. TECHNIQUE: Real-time imaging of the kidneys. Limited visualization due to bowel gas. FINDINGS: RIGHT KIDNEY: 12.0 x 5.4 x 6.4 cm (SAG x AP x TRV). No hydronephrosis. No renal calculi. Limited visualization. LEFT KIDNEY: 12.8 x 5.3 x 6.1 cm (SAG x AP x TRV). Mild fullness left renal pelvis. No renal calculi. Limited visualization. US/US renal BI IMPRESSION: Mild fullness left renal pelvis. No renal calculi. Limited visualization.
== END 2022-10-01 11:45 | disposition home or self-care (01) ==
LOC: HO.US 11:44
PROVIDERS: PCP Student in an Organized Health Care Education/Training Program; Visit Provider Student in an Organized Health Care Education/Training Program
DX: Z87.442 Personal history of urinary calculi (principal)
CPT/HCPCS: 76775

== ENCOUNTER 2022-10-05 16:24 | Outpatient (REF) | payer MEDICAID, SELFPAY ==
[2022-10-05 17:22] LABS: MANUAL DIFF FLAG NO
[2022-10-05 17:29] LABS: Basophils Percent Auto 0.2 % (0-2); Eosinophils Absolute Auto 0.3 X10*3/uL (0.0-0.4); Eosinophils Percent Auto 2.7 % (0-4); Hematocrit 38.2 % (37.0-47.0); Hemoglobin 12.6 g/dl (12.0-16.0); Imm Gran Abs Auto 0.03 X10*3/uL (0.00-0.03); Imm Gran Pct Auto 0.3 % (0.0-0.4); Lymphocytes Absolute Auto 2.1 X10*3/uL (1.2-4.9); Lymphocytes Percent Auto 23.1 % (20-40); Mean Corpuscular Hemoglobin 29.7 pg (27.0-33.0); Mean Corpuscular Volume 90.1 fL (80.0-98.0); Mean Platelet Volume 11.1 fL (9.4-12.3); Monocytes Absolute Auto 0.4 X10*3/uL (0.1-1.2); Monocytes Percent Auto 4.8 % (2-11); Neutrophils Absolute Auto 6.3 x10*3/uL (2.0-8.3); Neutrophils Percent Auto 68.9 % (45-73); Platelet Count 290 X10*3/uL (160-400); Red Blood Count 4.24 X10*6/uL (4.20-5.50); Red Cell Distribution Width 13.2 % (11.0-16.0); White Blood Count 9.2 X10*3/uL (4.8-10.8)
[2022-10-06 03:39] LABS: Syphilis Screen Nonreactive (Nonreactive)
[2022-10-07 08:48] LABS: Lyme Abs Screen <0.90 index
== END 2022-10-05 16:25 | disposition home or self-care (01) ==
LOC: HO.HHCL 16:24
PROVIDERS: Visit Provider Registered Nurse
DX: R23.3 Spontaneous ecchymoses (principal)
CPT/HCPCS: 36415; 85025; 86617; 86618; 86780

== ENCOUNTER 2022-10-26 12:43 | Outpatient (REF) | payer MEDICAID, SELFPAY ==
[2022-10-26 17:02] LABS: Alanine Aminotransferase 17 U/L (0-31); Albumin Level 4.3 g/dL (3.5-5.0); Alkaline Phosphatase 53 U/L (39-117); Anion Gap 12 (12-20); Aspartate Amino Transferase 23 U/L (5-31); Bilirubin Total 0.5 mg/dL (0.0-1.0); Blood Urea Nitrogen 10 mg/dL (9-16); Calcium 9.4 mg/dL (8.4-10.2); Carbon Dioxide 23 mmol/L (22-29); Chloride 107 mmol/L (96-108); Estimated Glomerular Filt Rate > 60; Glucose Random 84 mg/dL (60-115); Potassium 3.5 mmol/L (3.3-5.1); Sodium 138 mmol/L (135-145); Total Protein 7.7 g/dL (6.5-8.0)
[2022-10-26 17:24] LABS: HCG Quantitative < 2 mIU/mL; TSH reflex Free T4 0.94 uIU/mL (0.32-4.0)
[2022-10-26 18:54] LABS: CT PCR NOT DETECTED (Not Detect.); NG PCR NOT DETECTED (Not Detect.)
[2022-10-27 04:10] LABS: HBc Num1 0.17 S/CO (0.00-0.79); HBsAGNum1 0.42 S/CO (0.00-0.99); HIV AB/AG Nonreactive (Nonreactive); HIV Num 1 0.04 S/CO (0.00-0.99); Hepatitis B Core Antibody Nonreactive (Nonreactive); Hepatitis B Surface Antigen Negative (Negative); ~HepC Num1 0.11 S/CO (0.00-0.79); ~Hepatitis C Antibody Nonreactive (Nonreactive)
[2022-10-27 04:38] LABS: Syphilis Screen Nonreactive (Nonreactive)
== END 2022-10-26 12:44 | disposition home or self-care (01) ==
LOC: HO.HHCL 12:43
PROVIDERS: Visit Provider Student in an Organized Health Care Education/Training Program
DX: Z11.4 Encounter for screening for human immunodeficiency virus [HIV] (principal); N91.2 Amenorrhea, unspecified; R74.01 Elevation of levels of liver transaminase levels; Z72.51 High risk heterosexual behavior
CPT/HCPCS: 0353U; 80053; 84443; 84702; 86704; 86780; 86803; 87340; 87389

== ENCOUNTER 2022-12-07 18:42 | Outpatient (REF) | payer MEDICAID, SELFPAY ==
[2022-12-08 03:59] LABS: CT PCR NOT DETECTED (Not Detect.); NG PCR NOT DETECTED (Not Detect.)
[2022-12-08 12:59] LABS: BV Int Neg Control Negative (Negative); BV Int Pos Control Positive (Positive)
== END 2022-12-07 18:43 | disposition home or self-care (01) ==
LOC: HO.HHCLNP 18:42
PROVIDERS: Visit Provider Internal Medicine Geriatric Medicine
DX: R11.0 Nausea (principal); Z20.2 Contact with and (suspected) exposure to infections with a predominantly sexual mode of transmission
CPT/HCPCS: 0353U; 87480; 87510; 87660

== ENCOUNTER 2022-12-08 12:10 | Outpatient (REF) | payer MEDICAID, SELFPAY ==
[2022-12-08 14:29] LABS: HCG Quantitative < 2 mIU/mL
== END 2022-12-08 12:11 | disposition home or self-care (01) ==
LOC: HO.HHCL 12:10
PROVIDERS: Visit Provider Internal Medicine Geriatric Medicine
DX: R11.0 Nausea (principal); N91.2 Amenorrhea, unspecified
CPT/HCPCS: 36415; 84702

== ENCOUNTER 2022-12-23 11:33 | Outpatient (REF) | payer MEDICAID, SELFPAY ==
[2022-12-24 17:53] LABS: HIV RNA PCR Qn Copies NOT DETECTED copies/mL (NOT DETECTED); HIV RNA PCR Qn Log Copies NOT DETECTED (NOT DETECTED)
== END 2022-12-23 11:34 | disposition home or self-care (01) ==
LOC: HO.HHCL 11:33
PROVIDERS: Visit Provider Student in an Organized Health Care Education/Training Program
DX: Z11.4 Encounter for screening for human immunodeficiency virus [HIV] (principal)
CPT/HCPCS: 36415; 87536

== ENCOUNTER 2022-12-31 16:15 | Outpatient (REF) | payer MEDICAID, SELFPAY ==
[2022-12-31 17:42] LABS: HCG Quantitative < 2 mIU/mL
== END 2022-12-31 16:16 | disposition home or self-care (01) ==
LOC: HO.HHCL 16:15
PROVIDERS: Visit Provider Student in an Organized Health Care Education/Training Program
DX: R11.0 Nausea (principal)
CPT/HCPCS: 36415; 84702

== ENCOUNTER 2023-07-15 18:15 | Outpatient (REF) | payer MEDICAID, SELFPAY ==
[2023-07-16 06:08] LABS: CT PCR NOT DETECTED (Not Detect.); NG PCR NOT DETECTED (Not Detect.)
[2023-07-16 08:20] LABS: Bacterial Vaginosis PCR POSITIVE (Negative); Candida Group PCR DETECTED (Not Detect); Candida glab krusei PCR NOT DETECTED (Not Detect); Trichomonas vaginalis PCR NOT DETECTED (Not Detect)
== END 2023-07-15 18:16 | disposition home or self-care (01) ==
LOC: HO.HHCLNP 18:15
PROVIDERS: Visit Provider Student in an Organized Health Care Education/Training Program
DX: N92.6 Irregular menstruation, unspecified (principal)
CPT/HCPCS: 0352U; 0353U

== ENCOUNTER 2023-11-07 12:43 | Outpatient (REF) | payer MEDICAID, SELFPAY ==
--- NOTE | ~2023-11-07 | XR_ITS ---
EXAMINATION: XR ANKLE, RIGHT CLINICAL INFORMATION: Right ankle pain COMPARISON: None available. TECHNIQUE: AP, lateral, and mortise views of the right ankle. FINDINGS: No fracture. Alignment is anatomic. No erosions. Joint spaces are maintained. Soft tissues are normal. XR/XR ankle RT min 3V IMPRESSION: Normal right ankle. Electronically signed by: Shahram Irizarry MD 11/07/2023 02:05 PM EDT
== END 2023-11-07 12:44 | disposition home or self-care (01) ==
LOC: HO.HHCX 12:43
PROVIDERS: Visit Provider Nurse Practitioner Family
DX: S93.402A Sprain of unspecified ligament of left ankle, initial encounter (principal)
CPT/HCPCS: 0352U; 73610; 87491; 87591

== ENCOUNTER 2023-11-07 15:59 | Outpatient (REF) | payer MEDICAID, SELFPAY ==
[2023-11-08 03:49] LABS: CT PCR NOT DETECTED (Not Detect.); NG PCR NOT DETECTED (Not Detect.)
[2023-11-08 10:56] LABS: Bacterial Vaginosis PCR POSITIVE (Negative); Candida Group PCR NOT DETECTED (Not Detect); Candida glab krusei PCR NOT DETECTED (Not Detect); Trichomonas vaginalis PCR NOT DETECTED (Not Detect)
== END 2023-11-07 16:00 | disposition home or self-care (01) ==
LOC: HO.HHCLNP 15:59
PROVIDERS: Visit Provider Nurse Practitioner Family
DX: N89.8 Other specified noninflammatory disorders of vagina (principal)
CPT/HCPCS: 0352U; 87491; 87591

== ENCOUNTER 2024-03-30 16:43 | Outpatient (REF) | payer MEDICAID, SELFPAY ==
--- OUTSIDE RECORDS SUMMARY | 2024-03-30 16:47 | XMS_ITS | Encounter Summary ---
Author Organization [facility] Address [address] [place] [address] Care Team Providers Care Surgery Technician Name Role Phone Elizabeth Chatterjee MD Primary Care Pro vider Reason for Visit * Reason Comments Foot Pain Right foot painDerma titis of right footTinea pedis of right footDermatophytosis of nail Encounter Details Date Type Department Care Team (Late st Contact Info) Description 03/26/2024 9:15 AM EST Office Visit Orthopedic Surgery - [place] [address] [phone] Piotr Benito, DPAmelia [address] [address] Right foot pain (Primary Dx); Dermatitis of right foot; Tinea pedis of right foot; Dermatophytosis of nail Social History Tobacco Use Types Packs/Day Years Used Date Smoking Tobacco: Never Smokeless Tobacco: Never Tobacco Cessation:Counseling Given: Not Answered Alcohol Use Standard Drinks/Week Comments Never 0 (1 standard drink = 0.6 oz pur e alcohol) Sex and Gender Information Value Date Recorded Sex Assigned at Not on file Gender Identity Not on file Sexual Orientation Not on file Job Start Date Occupation Industry Not on file Not on file Not on file documented as of this encounter Last Filed Vital Signs Vital Sign Reading Time Taken Comments Blood Pressure - - Pulse - - Temperature - - Respiratory Rate - - Oxygen Saturation - - Inhaled Oxygen Concentration - - Weight 83.9 kg (185 lb) 03/26/2024 9:23 AM EST Height 162.6 cm (5' 4.02 ) 03/26/2024 9:23 AM ES T Body Mass Index 31.74 03/26/2024 9:23 AM EST documented in this encounter Progress Notes * Piotr Benito DPM - 03/26/2024 9:15 AM EST Referring MD: Isai Last PCP visit: 12/13/2023 IDENTIFIER: @TITLE@ Esteban is a 39 y.o. year old female who presents for consultation. CC: Bilateral foot pain HPI: 39-year-old female returns office for bilateral foot pain. Patient notes that she has run out of chlorhexidine scrub but has been using the terbinafine daily. Patient notes she has had decrease in scaliness and discoloration in the feet. Patient notes that the overall pain has reduced. Patient is happy with the progress she is making ROS: GENERAL: Pt denies nausea, fever, vomiting, chills, or shortness of breath. Pt in NAD. CARDIOLOGY: pt denies chest pain, palpitations LUNGS: pt denies shortness of breath MUSCULOSKELETAL: See HPI, otherwise no joint pain or swelling, back pain, or muscle pain. SKIN: see HPI, otherwise no lesions, rash or itching NEURO: No persistent headache, weakness or numbness The remainder of the review of systems is noncontributory PAST MEDICAL HISTORY: There is no problem list on file for this patient. SOCIAL HISTORY: Social History Tobacco Use Smoking status: Never Smokeless tobacco: Never Substance Use Topics Alcohol use: Never ACTIVE MEDICATIONS: Outpatient Medications Marked as Taking for the 03/26/24 encounter (Office Visit) with Piotr Benito DPM Medication Sig Dispense Refill hydrocortisone 2.5 % cream Apply topically 1 (one) time each day. 60 g 2 ALLERGIES: @ALL@ PHYSICAL EXAM: Height 1.626 m (64.02 ), weight 83.9 kg (185 lb). PODIATRIC EXAMINATION: GENERAL: Patient appears well nourished, with NAD. VASCULAR: Dorsalis pedis pulses are 2/4 bilaterally and Posterior tibial pulses are 2/4 bilaterally. Capillary filling time within normal limits the digits. No pallor on elevation or rubor on dependency. Positive hair growth. No varicosities. Denies rest pain or claudication pain. NEUROLOGICAL: Sharp/dull sensation intact, protective sensation intact 10/10 with 5.07 semmes kim bilaterally, vibratory sensation with tuning fork intact to the tibial tuberosity. ORTHOPEDIC: Good muscle strength 5/5 of all flexors and extensors. Dorsi flexion of ankle ,10 degrees, plantar flexion WNL. No muscle atrophy. Pain on palpation of the submetatarsal region of the right foot DERMATOLOGICAL:.Continued decrease in redness and breakdown of skin to the plantar aspect of the feet right greater than left. Nails continue be thickened 1 through 5 bilaterally. BIOMECHANICS: STJ ROM wnl, MTJ ROM wnl, 1st MPJ ROM wnl. IMPRESSION: 1. Right foot pain 2. Dermatitis of right foot 3. Tinea pedis of right foot 4. Dermatophytosis of nail PLAN: Pt was seen and examined, history reviewed. Patient was educated on the importance of wearing more supportive shoe during ambulatory activity in order to limit the breakdown of the midtarsal joint and strain to the plantar fascia. Patient has had a decrease in the discoloration and pain in the feet. Patient does not require continued use of the chlorhexidine. If patient continues to have no increase in breakdown of skin after the discontinuance of the chlorhexidine then she does not need to continue with an antibacterial medi cation Patient instructed to finish of the antifungal medication for the nails as that is also helping with her skin. Patient was educated that she should follow-up 4 weeks after she finishes that which is in 8 weeks Piotr Benito DPM documented in this encounter Plan of Treatment Upcoming Encounters Date Type Department Care Team (Late st Contact Info) Description 04/23/2024 9:15 AM EST Office Visit Orthopedic Surgery - [place] [id number] [phone] Piotr Benito DPM [address] [facility] [address] [place] [id number] documented as of this encounter Visit Diagnoses Diagnosis Right foot pain- Primary Pain in soft tissues of limb Dermatitis of right foot Tinea pedis of right foot Dermatophytosis of nail documented in this encounter Care Teams Surgery Technician Relationship Specialty Start Date End Date Elizabeth Chatterjee MD [address] [facility] [address] [place] [phone] PCP - General 08/24/23 documented as of this encounter
--- OUTSIDE RECORDS SUMMARY | 2024-03-30 16:47 | XMS_ITS | Clinical Summary ---
Author Organization 175 [facility] Address 175 [place] [address] Phone Care Team Providers Care Orthopedic Surgeon Name Role Phone Elizabeth Chatterjee MD Primary Care Pro vider Allergies Active Allergy Reactions Criticality Noted Date Comments Bupropion 05/19/2017 Cabotegravir Hives 08/19/2023 Hydrocodone 01/25/2022 Hydrocodone-Acetaminophe n Nausea And Vomiting 03/08/2016 Lactose 11/17/2019 Metronidazole Other 08/19/2023 Olanzapine Fatigue,Unknown 03/08/2016 Penicillin 01/02/2024 Penicillin G 02/09/2022 Ceftriaxone received before with no problem Terbinafine Shortness of breath High 01/02/2024 Sweating Medications Medication Sig Dispensed Refills Start Date End Date Status hydrocortisone 2.5 % cream Apply topically 1 (one) time each day. 30 g 2 01/02/2024 Active hydrocortisone 2.5 % cream Apply topically 1 (one) time each day. 60 g 2 01/16/2024 01/15/2025 Active terbinafine (LamISIL) 250 mg tablet Take 1 tablet (250 mg total) by mouth 1 (one) time each day. 30 tablet 1 01/16/2024 03/16/2024 Encounters Date Type Department Care Team Description 03/26/2024 9:15 AM EST Office Visit Orthopedic [facility] [address] [address] Piotr Benito DPM Right foot pain (Primary Dx); Dermatitis of right foot; Tinea pedis of right foot; Dermatophytosis of nail 02/07/2024 Telephone Orthopedic Surgery [facility] [address] [address] Sil Martinez 01/16/2024 8:45 AM EST Office Visit [place] [phone] [address] Piotr Benito DPM Right foot pain (Primary Dx); Dermatitis of right foot; Tinea pedis of right foot; Dermatophytosis of nail 01/06/2024 Telephone Orthopedic [place] [address] [address] Piotr Benito DPM Medication Problem 01/02/2024 8:45 AM EST Office Visit [place] [phone] [phone] Piotr Benito DPM Right foot pain (Primary Dx); Dermatitis of right foot; Tinea pedis of right foot; Dermatophytosis of nail from Last 3 Months Social History Tobacco Use Types Packs/Day Years [...] file Not on file Not on file Obstetrics History Last Filed Vital Signs Vital Sign Reading Time Taken Comments Blood Pressure - - Pulse - - Temperature - - Respiratory Rate - - Oxygen Saturation - - Inhaled Oxygen Concentration - - Weight 83.9 kg (185 lb) 03/26/2024 9:23 AM EST Height 162.6 cm (5' 4.02 ) 03/26/2024 9:23 AM ES T Body Mass Index 31.74 03/26/2024 9:23 AM EST Plan of Treatment Upcoming Encounters Date Type Department Care Team (Late st Contact Info) Description 04/23/2024 9:15 AM EST Office Visit Orthopedic [facility] [address] [phone] Piotr Benito DPM [address] [address] Health Maintenance Due Date Last Done Comments Hepatitis B Vaccines (1 of 3 - 19+ 3-dose series) 2006 Pneumococcal Vaccine: Pediatrics (0 to 5 Years) and At-Risk Patients (6 to 64 Years) (2 of 2 - PCV) 11/28/2016 11/29/2015 Depression Screening 01/24/2022 Social Influencers of Health Screening 01/24/2022 Cervical Cancer Screening: Pap Smear 05/10/2023 05/09/2020, 08/11/2017, 08/11/2017 COVID-19 Vaccine ( season) 2023 08/06/2020, 07/16/2020, 11/30/2015, Additional history exists DTaP,Tdap,and Td Vaccines (8 - Td or Tdap) 11/04/2025 11/05/2015, 09/02/2014, 04/20/1999, Additional history exists Cholesterol Screening (Lipid Panel) 07/15/2027 07/14/2022 HIB Vaccines Completed 02/24/1989 IPV Vaccines Completed 07/15/1992, 0407/1987, 1987 MMR Vaccines Completed 09/11/1996, 05/19/1988 Hepatitis C Screening Completed 10/26/2022 HIV Screening Completed 12/23/2022 Influenza Vaccine Completed 01/24/2024, , 11/30/2015, Additional history exists HPV Vaccines Aged Out No longer eligi ble based on patient's age to complete this topic Hepatitis A Vaccines Aged Out No long er eligible based on patient's age to complete this topic Meningococcal ACWY Vaccine Aged Out N o longer eligible based on patient's age to complete this topic RSV Immunization Patients Under 20 months Aged Out No longer eligible based on patient's age to complete this topic Varicella Vaccines Aged Out No longer eligible based on patient's age to complete this topic Procedures Procedure Name Priority Date/Time Associated Diagnosis Comments COMPREHENSIVE METABOLIC PANEL Routine 01/02/2024 9:29 AM EST Dermatophytosis of nail PAP SMEAR Routine 08/11/2017 from Last 3 Months or Most Recently Relevant to Health Maintenance Results * Comprehensive metabolic panel (01/02/2024 9:29 AM EST) Sodium 139 133 - 145 mmol/L LAB CHEMISTRY METHOD 01/02/2024 2:[address] [facility] Potassium 4.3 3.5 - 5.5 mmol/L LAB CHEMISTRY METHOD 01/02/2024 2:[address] [facility] Chloride 107 96 - 110 mmol/L LAB CHEMISTRY METHOD 01/02/2024 2:[address] [facility] CO2 27 21 - 32 mmol/L LAB CHEMISTRY METHOD 01/02/2024 2:[address] [facility] Anion Gap 5 3 - 11 LAB CHEMISTRY METHOD 01/02/2024 2:[address] [facility] Glucose 79 70 - 100 mg/dL LAB CHEMISTRY METHOD 01/02/2024 2:[address] [facility] BUN 15 5 - 25 mg/dL LAB CHEMISTRY METHOD 01/02/2024 2:[address] [facility] Creatinine 0.77 0.50 - 1.10 mg/dL LAB CHEMISTRY METHOD 01/02/2024 2:[address] [facility] eGFR 103 >=60 mL/min/1. 73m2 LAB CHEMISTRY METHOD 01/02/2024 2:[address] [facility] Comment:Calculation based on the??Chronic Kidney Disease Epidemiology Collaboration (CKD-EPI) equation refit??without adjustment for race. BUN/Creatinine Ratio 19.5 LAB CHEMISTRY METHOD 01/02/2024 2:[address] [facility] Calcium 9.9 8.5 - 10.5 mg/dL LAB CHEMISTRY METHOD 01/02/2024 2:[address] [facility] AST (SGOT) 21 10 - 42 unit/L LAB CHEMISTRY METHOD 01/02/2024 2:[address] [facility] ALT (SGPT) 19 10 - 60 unit/L LAB CHEMISTRY METHOD 01/02/2024 2:53 PM EST [facility] Alkaline Phosphatase 57 42 - 121 unit/L LAB CHEMISTRY METHOD 01/02/2024 2:53 PM EST [facility] Total Protein 7.5 6.0 - 8.0 g/dL LAB CHEMISTRY METHOD 01/02/2024 2:53 PM EST [facility] Albumin 4.1 3.2 - 5.0 g/dL LAB CHEMISTRY METHOD 01/02/2024 2:53 PM EST [facility] Total Bilirubin 0.4 0.0 - 1.4 mg/dL LAB CHEMISTRY METHOD 01/02/2024 2:53 PM EST [facility] Blood Venous blood specimen / Unknown Venipuncture / Unknown 01/02/2024 9:29 AM EST 01/02/2024 9:29 AM EST Piotr Benito DP LAB BLOOD ORDERABLE S [facility] [address] [place] [address], * Pap smear (08/11/2017) 08/11/2017 Narrative HISTORICAL TESTING LAB RESULTING AGENCY - 08/16/2017 9:06 AM EDT [id number] RESULTS OF GEN-PROBE APTIMA COMBO 2 ASSAY CHLAMYDIA: ?NEGATIVE N. GONORRHOEAE: ? NEGATIVE CHELSIE FRANKEL M.D., PATHOLOGIST (CASE ELECTRONICALLY SIGNED 08 16 2017) CLINICAL INFORMATION: Z11.3, Z12.4 Z11.3 ENCOUNTER FOR SCREENING FOR INFECTIONS WITH A PREDOMINANTLY SEXUAL MODE OF TRANSMISSION SOURCE: THINPREP PAP FOR CT/GC GROSS DESCRIPTION: THINPREP VIAL RECEIVED. PHYSICIANS MANUEL RUEDA/# /[id number] Manuel Rueda CN LAB CYTOLOGY ORDERAB LES HISTORICAL TESTING LAB RESULTING AGENCY from Last 3 Months or Most Recently Relevant to Health Maintenance Guarantor Name Account Type Relation to Patient Date of Phone Billing Address Myesha Orellana Personal/Family Self 1985 [address] [facility] [address] [place] [address] Care Teams Orthopedic Surgeon Relationship Specialty Start Date End Date Elizabeth Chatterjee MD 9 [facility] 9 [place] [address] PCP - General 08/24/23
== END 2024-03-30 16:44 | disposition home or self-care (01) ==
LOC: HO.HHCL 16:43
PROVIDERS: Visit Provider Nurse Practitioner Family
DX: Z13.89 Encounter for screening for other disorder (principal)

== ENCOUNTER 2024-04-02 11:57 | Outpatient (REF) | payer MEDICAID, SELFPAY ==
--- OUTSIDE RECORDS SUMMARY | 2024-04-02 13:12 | XMS_ITS | Encounter Summary ---
Author Organization [email or web address] [facility] Address [address] [facility] 7t [place] [address] Care Team Providers Care Factory Machine Computer Operator Name Role Phone Elizabeth Reaves MD Primary Care Provide r Elizabeth Chatterjee MD Primary Care Pro vider Reason for Visit * Reason Onset Date Comments Appointment Request 07/02/2022 Encounter Details Date Type Department Care Team ([facility] st Contact Info) Description 07/02/2022 Telephone [facility] MEDICINE 230 [place], [place] [phone] Elizabeth Reaves MD 230 [place] [address] Appointment Request Social History Tobacco Use Types Packs/Day Years Used Date Smoking Tobacco: Former Cigarettes Passive Smoke Exposure: Never Smokeless Tobacco: Never Alcohol Use Standard Drinks/Week Comments Never 0 (1 standard drink = 0.6 oz pur e alcohol) Depression Answer Date Recorded Patient Health Questionnaire-2 Score 0 05/31/2022 Comments Unknown Sex and Gender Information Value Date Recorded Sex Assigned at Female 12/21/2021 10:33 AM EDT Legal Sex Female 10:33 AM EDT Gender Identity Female 12/21/2021 10:33 AM EDT Sexual Orientation Choose not to disclose 2021 10:33 AM EDT COVID-19 Exposure Response Date Recorded In the last 10 days, have yo u been in contact with someone who was confirmed or suspected to have Coronavirus/COVID-19? No / Unsure 06/28/2022 2:35 PM EDT documented as of this encounter Miscellaneous Notes * Telephone Encounter - Abigail Grimes - 07/02/2022 10:40 AM EDT Tc from pt requesting an appt with provider for Tuesday. Pt states have some concerns that will onlySpeak with PCP. Please contact pt at [phone] documented in this encounter Plan of Treatment Not on file documented as of this encounter Visit Diagnoses Not on filedocumented in this encounter Care Teams Factory Machine Computer Operator Relationship Specialty Start Date End Date Elizabeth Reaves MD 230 [place] [address] PCP - General Family Medicine 10/01/21 07/25/22 Elizabeth Chatterjee MD 230 [place] [address] PCP - General Internal Medicine 07/26/22 documented as of this encounter
--- OUTSIDE RECORDS SUMMARY | 2024-04-02 13:12 | XMS_ITS | Encounter Summary ---
Author Organization [employer] Address [address] [facility] 7t [place] [address] Care Team Providers Care Gear Tester Name Role Phone Elizabeth Chatterjee MD Primary Care Pro vider Reason for Visit * Reason Onset Date Comments Medication Question 09/16/2022 Encounter Details Date Type Department Care Team ([facility] Contact Info) Description 09/16/2022 Telephone [facility]INE 230 [place], [place] [phone] Elizabeth Chatterjee MD 230 [place] [address] Medication Question Social History Tobacco Use Types Packs/Day Years Used Date Smoking Tobacco: Former Cigarettes Passive Smoke Exposure: Never Smokeless Tobacco: Never Alcohol Use Standard Drinks/Week Comments Never 0 (1 standard drink = 0.6 oz pur e alcohol) Depression Answer Date Recorded Patient Health Questionnaire-2 Score 0 05/31/2022 Comments No Sex and Gender Information Value Date Recorded [...] suspected to have Coronavirus/COVID-19? No / Unsure 08/25/2022 9:00 AM EDT documented as of this encounter Miscellaneous Notes * Telephone Encounter - Cande Mihir - 09/16/2022 10:39 AM EDT Tc from pt requesting to specifically speak with PCP in regards to medication questions and issues with her foot. Seems overwhelmed about speaking with too many nurses and providers but not getting any answers. Please contact pt at [phone] documented in this encounter Plan of Treatment Not on file documented as of this encounter Visit Diagnoses Not on filedocumented in this encounter Care Teams Gear Tester Relationship Specialty Start Date End Date Elizabeth Chatterjee MD [address] [place] [phone] PCP - General Internal Medicine 07/26/22 documented as of this encounter
--- OUTSIDE RECORDS SUMMARY | 2024-04-02 13:12 | XMS_ITS | Encounter Summary ---
Author Organization [employer] Address [address] [facility] [address] 7[address] [place] [address] Care Team Providers Care Fiberglass Roving Winder Name Role Phone Elizabeth Chatterjee MD Primary Care Pro vider Encounter Details Date Type Department Care Team (Late st Contact Info) Description 03/30/2024 Orders Only [facility]ICINE 230 [place] [address] Taryn Viigl LPN Screening examination for pulmonary tuberculosis (Primary Dx) Social History Tobacco Use Types Packs/Day Years Used Date Smoking Tobacco: Former Cigarettes Passive Smoke Exposure: Never Smokeless Tobacco: Never Alcohol Use Standard Drinks/Week Comments Never 0 (1 standard drink = 0.6 oz pur e alcohol) Housing Stability Answer Date Recorded What is your housing situation today? I have mayuri cárdenas 12/06/[address] you li ve. Do you have problems with any of the following? None of the above 12/06/2022 Food Insecurity Answer Date Recorded Within the past 12 months, y ou worried that your food would run out before you got money to buy more: Never True 12/06/2022 Within the past 12 months,th e food you bought just didn't last and you didn't have enough money to get more: Never True Transportation Answer Date Recorded In the past 12 months, has l ack of transportation kept you from medical appts, meetings, work or from getting things needed for daily living? No 12/06/2022 Utilities Answer Date Recorded In the past 12 months, has t he electric, gas, oil or water company threatened to shut off services in your home? No 12/06/2022 Depression Answer Date Recorded Patient Health Questionnaire-2 Score 0 05/31/2022 Comments No Sex and Gender Information Value Date Recorded Sex Assigned at Female 12/21/2021 10:33 AM EDT Legal Sex Female 10:33 AM EDT Gender Identity Female 12/21/2021 10:33 AM EDT Sexual Orientation Choose not to disclose 2021 10:33 AM EDT documented as of this encounter Progress Notes * Taryn Vigil LPN - 03/30/2024 4:23 PM EST Subjective Patient ID: Myesha Orellana is a 39 y.o. female who presents to request orders for [employer] for work. Order entered for Tspot with [facility] lab on site documented in this encounter Plan of Treatment Scheduled Orders Name Type Priority Associated Diagnoses Orde r Schedule T-SPOT??.TB Lab Routine Screening examination for pulmonary tuberculosis Expected: 03/30/2024 (Approximate), Expires: 03/30/2025 documented as of this encounter Visit Diagnoses Diagnosis Screening examination for pulmonary tuberculosis- Primary documented in this encounter Care Teams Fiberglass Roving Winder Relationship Specialty Start Date End Date Elizabeth Chatterjee MD [address] [place] [id number] PCP - General Internal Medicine 07/26/22 documented as of this encounter
--- OUTSIDE RECORDS SUMMARY | 2024-04-02 13:12 | XMS_ITS | Encounter Summary ---
Author Organization [facility] [facility] Address [address] [place] [address] 7t [place] [address] Care Team Providers Care Decay Control Operator Name Role Phone Elizabeth Chatterjee MD Primary Care Pro vider Reason for Visit * Reason Comments Med Refill Encounter Details Date Type Department Care Team ([facility] st Contact Info) Description 10/08/2022 Refill [facility] MEDICINE [address] [place] [phone] Elizabeth Chatterjee MD 230 [place], [place] [phone] Social History Tobacco Use Types Packs/Day Years [...] AM EDT documented as of this encounter Plan of Treatment Not on file documented as of this encounter Visit Diagnoses Not on filedocumented in this encounter Care Teams Decay Control Operator Relationship Specialty Start Date End Date Elizabeth Chatterjee MD [address] [place] [phone] PCP - General Internal Medicine 07/26/22 documented as of this encounter
--- OUTSIDE RECORDS SUMMARY | 2024-04-02 13:12 | XMS_ITS | Encounter Summary ---
Author Organization [employer] Address [address] [facility] [address] 7[address] [place] [address] Care Team Providers Care Infusion Pharmacist Name Role Phone Elizabeth Chatterjee MD Primary Care Pro vider Encounter Details Date Type Department Care Team (Late st Contact Info) Description 10/26/[address] [facility] MEDICINE 230 [place], [place] [phone] Elizabeth Chatterjee MD 230 [place], [place] [phone] Social History Tobacco Use Types Packs/Day Years [...] on filedocumented in this encounter Care Teams Infusion Pharmacist Relationship Specialty Start Date End Date Elizabeth Chatterjee MD [address] [place] [phone] PCP - General Internal Medicine 07/26/22 documented as of this encounter
--- OUTSIDE RECORDS SUMMARY | 2024-04-02 13:12 | XMS_ITS | Clinical Summary ---
Author Organization 175 [facility] Address 175 [place] [address] Phone Care Team Providers Care Manager Psychiatry Name Role Phone Elizabeth Chatterjee MD Primary Care Pro vider Allergies Active Allergy Reactions Criticality Noted Date Comments Bupropion 05/19/2017 Cabotegravir Hives 08/19/2023 Hydrocodone 01/25/2022 Hydrocodone-Acetaminophe n Nausea And Vomiting 03/08/2016 Lactose 11/17/2019 Metronidazole Other 08/19/2023 Olanzapine Fatigue,Unknown 03/08/2016 Penicillin 01/02/2024 Penicillin G 02/09/2022 Ceftriaxone received before with no problem Terbinafine Shortness of breath High 01/02/2024 Sweating Medications hydrocortisone 2.5 % cream Apply topically 1 (one) time each day. 30 g 2 4 Active hydrocortisone 2.5 % cream Apply topically 1 (one) time each day. 60 g 2 4 01/16/20 25 Active terbinafine (LamISIL) 250 mg tablet Take 1 tablet (250 mg total) by mouth 1 (one) time each day. 30 tablet 1 4 03/16/19 25 Encounters Date Type Department Care Team Description 03/26/2024 9:15 AM EST Office Visit Orthopedic [facility] [address] [address] Piotr Benito DPM Right foot pain (Primary Dx); Dermatitis of right foot; Tinea pedis of right foot; Dermatophytosis of nail 02/07/2024 Telephone Orthopedic Surgery [facility] [address] [address] Sil Martinez 01/16/2024 8:45 AM EST Office Visit [place] [phone] [phone] Piotr Benito DPM Right foot pain (Primary Dx); Dermatitis of right foot; Tinea pedis of right foot; Dermatophytosis of nail 01/06/2024 Telephone Orthopedic [place] [address] [address] Piotr Benito DPM Medication Problem 01/02/2024 8:45 AM EST Office Visit [place] [address] [phone] Piotr Benito DPM Right foot pain (Primary Dx); Dermatitis of right foot; Tinea pedis of right foot; Dermatophytosis of nail from Last 3 Months Social History Tobacco Use Types Packs/Day Years Used Date Smoking Tobacco: Never Smokeless Tobacco: Never Tobacco Cessation:Counseling Given: Not Answered Alcohol Use Standard Drinks/Week Comments Never 0 (1 standard drink = 0.6 oz pur e alcohol) Comments Unknown Sex and Gender Information Value Date Recorded Sex Assigned at Not on file Legal Sex Female 7:02 AM EST Gender Identity Not on file Sexual Orientation Not on file Obstetrics History Last Filed [...] 04/23/2024 9:15 AM EST Office Visit Orthopedic [facility] [address] [phone] Piotr Benito DPM [address] [address] Health Maintenance Due Date Last Done Comments [...] Vaccines Completed 02/24/1989 IPV Vaccines Completed 07/15/1992, 07/1987, 1987 MMR Vaccines Completed 09/11/1996, 05/19/1988 Hepatitis [...] patient's age to complete this topic Meningococcal B Vacine Aged Out No lo nger eligible based on patient's age to complete [...] mmol/L LAB CHEMISTRY METHOD 01/02/2024 2:53 PM [facility] Potassium 4.3 3.5 - 5.5 mmol/L LAB CHEMISTRY METHOD 01/02/2024 2:53 PM [facility] Chloride 107 96 - 110 mmol/L LAB CHEMISTRY METHOD 01/02/2024 2:53 PM [facility] CO2 27 21 - 32 mmol/L LAB CHEMISTRY METHOD 01/02/2024 2:53 PM [facility] Anion Gap 5 3 - 11 LAB CHEMISTRY METHOD 01/02/2024 2:53 PM [facility] Glucose 79 70 - 100 mg/dL LAB CHEMISTRY METHOD 01/02/2024 2:53 PM [facility] BUN 15 5 - 25 mg/dL LAB CHEMISTRY METHOD 01/02/2024 2:53 PM [facility] Creatinine 0.77 0.50 - 1.10 mg/dL LAB CHEMISTRY METHOD 01/02/2024 2:53 PM [facility] eGFR 103 >=60 mL/min/1. 73m2 LAB CHEMISTRY METHOD 01/02/2024 2:53 PM [facility] Comment:Calculation based on the??Chronic Kidney Disease Epidemiology Collaboration (CKD-EPI) equation refit??without adjustment for race. BUN/Creatinine Ratio 19.5 LAB CHEMISTRY METHOD 01/02/2024 2:53 PM [facility] Calcium 9.9 8.5 - 10.5 mg/dL LAB CHEMISTRY METHOD 01/02/2024 2:53 PM [facility] AST (SGOT) 21 10 - 42 unit/L LAB CHEMISTRY METHOD 01/02/2024 2:53 PM [facility] ALT (SGPT) 19 10 - 60 unit/L LAB CHEMISTRY METHOD 01/02/2024 2:53 PM EST [facility] Alkaline Phosphatase 57 42 - 121 unit/L LAB CHEMISTRY METHOD 01/02/2024 2:53 PM EST [facility] Total Protein 7.5 6.0 - 8.0 g/dL LAB CHEMISTRY METHOD 01/02/2024 2:53 PM EST [facility] Albumin 4.1 3.2 - 5.0 g/dL LAB CHEMISTRY METHOD 01/02/2024 2:53 PM [facility] Total Bilirubin 0.4 0.0 - 1.4 mg/dL LAB CHEMISTRY METHOD 01/02/2024 2:53 PM EST [facility] Blood Venous blood specimen / Unknown Venipuncture / Unknown 01/02/2024 9:29 AM EST 01/02/2024 9:29 AM EST Piotr Benito DPM LAB BLOOD ORDERABLES Final Result [facility] [address] [place] [address], * Pap smear (08/11/2017) 08/11/2017 Narrative HISTORICAL TESTING LAB RESULTING AGENCY - 08/16/2017 9:06 AM EDT [id number] RESULTS OF GEN-PROBE APTIMA COMBO 2 ASSAY CHLAMYDIA: ?NEGATIVE N. GONORRHOEAE: ? NEGATIVE CHELSIE FRANKEL M.D., PATHOLOGIST (CASE ELECTRONICALLY SIGNED 08 16 2017) CLINICAL INFORMATION: Z11.3, Z12.4 Z11.3 ENCOUNTER FOR SCREENING FOR INFECTIONS WITH A PREDOMINANTLY SEXUAL MODE OF TRANSMISSION SOURCE: THINPREP PAP FOR CT/GC GROSS DESCRIPTION: THINPREP VIAL RECEIVED. PHYSICIANS MANUEL RUEDA/# /[id number] Manuel Rueda [facility] LAB CYTOLOGY ORDERABLES Final Result HISTORICAL TESTING LAB RESULTING AGENCY from Last 3 Months or Most Recently Relevant to Health Maintenance Insurance [place] [id number] Care Teams Manager Psychiatry Relationship Specialty Start Date End Date Elizabeth Chatterjee MD 9 [facility] 9 [place] [phone] PCP - General 08/24/23
--- OUTSIDE RECORDS SUMMARY | 2024-04-02 13:12 | XMS_ITS | Encounter Summary ---
Author Organization [facility] [facility] Address [address] [place] [address] 7t [place] [address] Care Team Providers Care Recreation Facility Manager Name Role Phone Elizabeth Chatterjee MD Primary Care Pro vider Reason for Visit * Reason Comments Med Change Request Encounter Details Date Type Department Care Team ([facility] st Contact Info) Description 08/26/2022 Refill [facility] MEDICINE [address] [place] [phone] Elizabeth Chatterjee MD [address] [place], [place] [phone] Social History Tobacco Use Types Packs/Day Years [...] on filedocumented in this encounter Care Teams Recreation Facility Manager Relationship Specialty Start Date End Date Elizabeth Chatterjee MD [address] [place], [place] [phone] PCP - General Internal Medicine 07/26/22 documented as of this encounter
--- OUTSIDE RECORDS SUMMARY | 2024-04-02 13:12 | XMS_ITS | Encounter Summary ---
Author Organization [employer] Address [address] [facility] [address] [place] [address] Care Team Providers Care Plant Electrical Engineer Name Role Phone Elizabeth Chatterjee MD Primary Care Pro vider Reason for Visit * Reason Onset Date Comments Referral 08/31/2023 Encounter Details Date Type Department Care Team ([facility] st Contact Info) Description 08/31/2023 Telephone [facility] MEDICINE [address] [place], [place] [phone] Elizabeth Chatterjee MD [address] [place] [address] Referral Social History Tobacco Use Types Packs/Day Years [...] encounter Miscellaneous Notes * Telephone Encounter - Barbara Grover RN - 09/01/2023 1:29 PM EDT TC placed to [facility] Podiatry to inquire if pt could be seen as soon as possible for current callusesand sores on the bottom of the feet. Pt was referred back in 07/2023 and offered an appt but pt refused. According to [place] the pt did not want to be seen due to an incident that happened in the office a few year ago. They will, however, still see the pt if she wants to keep an appt scheduling for October of this year. RN called pt back and advised calling [facility] Podiat[facility] and scheduling as this is the soonest she will be seen at any office. Pt agreeable to plan and will call back with any future questions. * Telephone Encounter - Ralph Crawley RN - 09/01/2023 12:03 PM EDT Please review and advise for below request. Referral was sent on 08/17. * Telephone Encounter - Jason Hebert - 08/31/2023 3:44 PM EDT Tc from patient requesting for the referral for Podiatry to be called in as emergency states has been dealing with situation for almost 2 years and does not want to wait till January and would like the referral to have additional information documented in this encounter Plan of Treatment Not on file documented as of this encounter Visit Diagnoses Not on filedocumented in this encounter Care Teams Plant Electrical Engineer Relationship Specialty Start Date End Date Elizabeth Chatterjee MD [address] [place] [id number] PCP - General Internal Medicine 07/26/22 documented as of this encounter
--- OUTSIDE RECORDS SUMMARY | 2024-04-02 13:12 | XMS_ITS | Encounter Summary ---
Author Organization [employer] Address [address] [facility] [address] [place] [address] Care Team Providers Care Freelance Graphic Designer Name Role Phone Elizabeth Reaves MD Primary Care Provide r Elizabeth Chatterjee MD Primary Care Pro vider Encounter Details Date Type Department Care Team ([facility] st Contact Info) Description 04/26/2022 Orders Only [facility] MED [facility] PEDS [address] [place], [place] [phone] Marline Johnson MD [address] [place] [address] Vaginal discharge (Primary Dx) Social History Tobacco Use Types Packs/Day Years Used Date Smoking Tobacco: Former Cigarettes Smokeless Tobacco: Never Comments Unknown Sex and Gender Information Value [...] suspected to have Coronavirus/COVID-19? No / Unsure 04/22/2022 8:34 AM EST documented as of this encounter Plan of Treatment Not on file documented as of this encounter Visit Diagnoses Diagnosis Vaginal discharge- Primary Leukorrhea, not specified as infective documented in this encounter Care Teams Freelance Graphic Designer Relationship Specialty Start Date End Date Elizabeth Reaves MD [address] [place] [id number] PCP - General Family Medicine 10/01/21 07/25/22 Elizabeth Chatterjee MD [address] [place] [id number] PCP - General Internal Medicine 07/26/22 documented as of this encounter
--- OUTSIDE RECORDS SUMMARY | 2024-04-02 13:12 | XMS_ITS | Encounter Summary ---
Author Organization [employer] Address [address] [facility] [address] [place] [address] Care Team Providers Care Protective Signal Repairer Name Role Phone Elizabeth Reaves MD Primary Care Provide r Elizabeth Chatterjee MD Primary Care Pro vider Reason for Visit * Reason Comments Med Refill Encounter Details Date Type Department Care Team ([facility] st Contact Info) Description 06/29/2022 Refill [facility] MED & PEDS [address] [place], [place] [phone] Marline Johnson MD [address] [place] [address] Vaginal discharge Social History Tobacco Use Types Packs/Day Years [...] PM EDT documented as of this encounter Plan of Treatment Not on file documented as of this encounter Visit Diagnoses Diagnosis Vaginal discharge Leukorrhea, not specified as infective documented in this encounter Care Teams Protective Signal Repairer Relationship Specialty Start Date End Date Elizabeth Reaves MD [address] [place], [place] [phone] PCP - General Family Medicine 10/01/21 07/25/22 Elizabeth Chatterjee MD [address] [place], [place] [phone] PCP - General Internal Medicine 07/26/22 documented as of this encounter
--- OUTSIDE RECORDS SUMMARY | 2024-04-02 13:12 | XMS_ITS | Clinical Summary ---
Author Organization [employer] Address [address] [facility] [address] [place] [address] Care Team Providers Care Body Presser Name Role Phone Elizabeth Chatterjee MD Primary Care Pro vider Allergies Active Allergy Reactions Criticality Noted Date Comments Cabotegravir Hives 08/19/2023 Bupropion 01/25/2022 Hydrocodone 01/25/2022 Hydrocodone-Acetaminophe n Nausea And Vomiting 03/08/2016 Metronidazole Other 08/19/2023 Olanzapine 01/25/2022 Penicillin G 02/09/2022 Ceftriaxone received before with no problem Medications albuterol (2.5 MG/3ML) 0.083% nebulizer solution inhale 3 milliliter by nebulization route 3 times every day as needed 09/10/19 22 Active docusate sodium (Colace) 100 MG capsule Take 1 capsule by mouth every 12 (twelve) hours. 04/20/19 22 Active LORazepam (Ativan) 1 MG tablet Take 1 tablet by mouth at bed time. 06/14/19 20 Active ondansetron ODT (Zofran-ODT) 4 MG disintegrating tablet take 1 tablet by oral route every [address] on top of the tongue where they will dissolve, then swallow 04/17/19 22 Active risperiDONE (RisperDAL) 1 MG tablet Take 1 tablet by mouth at bed time. 08/06/19 20 Active loratadine (Claritin) 10 MG tabletIndications: Allergy, sequela TAKE 1 TABLET BY MOUTH EVERY MORNING 90 tablet 1 06/14/19 24 Active gabapentin (Neurontin) 300 MG capsuleIndications :Bilateral foot pain Take 1 capsule (300 mg) by mouth if needed in the morning, at noon, and at bedtime (nerve pain). 90 capsule 3 08/18/19 24 025 Active ciclopirox (Penlac) 8 % solution Apply topically at bedtime. 6 mL 2 08/18/19 24 Active Deirdre 30 MG tablet TAKE 1 TABLET (30 MG) BY MOUTH 1 (ONE) TIME FOR 1 DOSE. 1 tablet 10 10/26/19 Active Nebulizers misc Use QID as needed for asthma treatments at home 1 each 11/10/19 Active Mometasone Furoate (Asmanex HFA) 200 MCG/ACT aerosolIndications :Mild persistent asthma without complication Inhale 1 puff 2 times daily. 13 g 11 11/11/19 24 025 Active neomycin-bacitraci n-polymyxin (Neosporin) 5-400-5000 ointment Apply topically Once per day. 28 g 12/21/19 Active hydrocortisone 2.5 % cream APPLY 1 INCH TOPICALLY IF NEEDED IN THE MORNING AND AT BEDTIME (RASH) FOR UP TO 14 DAYS. 28 g 12/22/19 Active sucralfate (Carafate) 1 g tabletIndications: Gastroesophageal reflux disease without esophagitis Take 1 tablet (1 g) by mouth if needed in the morning, at noon, in the evening, and at bedtime (epigastric pain,GERD). TAKE 1 TABLET BY MOUTH FOUR TIMES DAILY TAKE ON AN EMPTY STOMACH BEFORE MEALS AND AT BEDTIME 120 tablet 2 12/27/19 Active lidocaine (Lidoderm) 5 % patch Apply 1 patch topically Once per day. Remove & discard patch within 12 hours or as directed by MD. 15 patch 2 01/10/20 Active albuterol (Ventolin HFA) 108 (90 Base) MCG/ACT inhalerIndications :Moderate persistent asthma with acute exacerbation INHALE 2 PUFFS BY MOUTH EVERY 4 HOURS NEEDED FOR WHEEZING OR SHORTNESS OF BREATH. 18 g 2 01/16/20 24 Active famotidine (Pepcid) 20 MG tablet TAKE 1 TABLET (20 MG) BY MOUTH IF NEEDED AT BEDTIME FOR HEARTBURN. 90 tablet 02/27/19 25 Active Active Problems Problem Noted Date Diagnosed Date Skin ulcer of right great toe, limited to breakd own of skin 12/21/2023 Assessment & Plan (12/21/2023 7:49 PM EDT): Dressing with topical antibiotic done today. Patient to continue daily dressings until she sees podiatry. Referral to podiatry urgent today. She's advised to callback or send a message via [employer] if she doesn't get her appt within 2w. Take Bactrim ds x 7d to cover for MRSA. Order Xray to ro bone compromise. Callus of foot 12/21/2023 Assessment & Plan (12/21/2023 7:50 PM EDT): Advised to keep feet clean and dry, use hydrocortisone cream daily for up to 14d for areas of eczema Needs evaluation by podiatry. Right ankle pain 11/24/2023 Assessment & Plan (11/24/2023 7:22 PM EDT): Pt reports turning ankle, reassuring exam but will image as pt reports pain with weight bearing Ankle wrapped, encouraged RICE and activity as tolerated Bacterial vaginosis 11/08/2023 Acute cough 11/07/2023 Assessment & Plan (11/24/2023 7:21 PM EDT): Poc covid and flu negative Reassuring resp exam x-ray was completed in er and symptoms are improving, continue rescue inhaler and steroids as prescribed Dysmenorrhea 11/07/2023 Assessment & Plan (11/24/2023 7:18 PM EDT): Referral to ob.rounding machine tender Onychomycosis 11/07/2023 Chronic lower back pain 10/06/2023 Assessment & Plan (10/06/2023 6:55 PM EDT): There is mild tenderness in paraspinal points in lower back w normal ROM and neuro exam -referred today to PT -tylenol prn -warm compresses -will eval at next apt -has apt w me in 3 weeks , if no better would consider imaging if not done recently at recent ED visit Amenorrhea 10/26/2022 Assessment & Plan (10/26/2022 12:54 PM EDT): -LMP 7/last weeks of -will do STI labs for broken condom and preg test -will call pt w results- otherwise pt will call here in 1 week for result -will discuss then about PREP again and contraception if neg result Anxiety 10/05/2022 Plantar wart of both feet 08/25/2022 Assessment & Plan (10/26/2022 12:50 PM EDT): Explained to pt that her main problem in feet seems to be associated w plantar warts per notes s/p cryotherapy in the past -on salycilic acid topical -given pt is concern and states not noticing major improvement referred to goat herder -has apt on 11/05/2022 -remind pt of apt Assessment & Plan (08/25/2022 9:50 AM EDT): Explained to pt that her main problem in feet seems to be associated w plantar warts per notes s/p cryotherapy in the past -started salycilic acid topical last month daily use x 4 weeks -given pt is concern and states not noticing major improvement referred today to goat herder History of nephrolithiasis 08/25/2022 Assessment & Plan (10/26/2022 12:44 PM EDT): Pt reports hx of nephrolithiasis Reports symptoms mainly associated w GI in origin and to f w GI x this Pt would like imaging to monitor previous stones -renal US 09/2022: RIGHT KIDNEY: 12.0 x 5.4 x 6.4 cm (SAG x AP x TRV). No hydronephrosis. No renal calculi. Limited visualization. LEFT KIDNEY: 12.8 x 5.3 x 6.1 cm (SAG x AP x TRV). Mild fullness left renal pelvis. No renal calculi. Limited visualization. Mild fullness left renal pelvis. No renal calculi. Limited visualization. -KUB Abd 09/08/2022: no definitive radiopaque renal calculus is identified ,although evaluation is limited due to overlying bowel. -Given noted Mild fullness of left renal pelvis with no obvious stones in US nor in XR -nurse staff already spoke with pt about need for CT scan -pd to have image - will call w result of CT ordered already Assessment & Plan (08/25/2022 7:48 PM EDT): Pt reports hx of nephrolithiasis Reports symptoms mainly associated w GI in origin and to f w GI x this Pt would like imaging to monitor previous stones -referred today x renal US and HUB XR--will call pt from clinic w results of images -advised to call here if after 2 weeks of having both images is not receiving a call -pt expressed understanding of plan Vaginal discharge 07/14/2022 Assessment & Plan (11/24/2023 7:18 PM EDT): Sti panel ordered, pt will complete self swab Assessment & Plan (10/26/2022 12:49 PM EDT): Pt w chronic BV-recently in 06/2022 + again,rest was neg Hx of ac and previous chlamydia x2 and hx of gonorrhea in chart,pt reports hx of trichomonas hx Seen by Manuel on 06/2022 -S/P Metronidazole oral BID x 7 days before and now using twice a week Intra vaginal metro gel px by Delfino contreras plan to complete 12 weeks -has refills done already -discussed w pt in length about starting PREP but pt refused at previous apt --will discuss w pt when she is more calm -when I call her w lab results and will offer again PREP Assessment & Plan (08/25/2022 9:48 AM EDT): Pt w chronic BV-recently in 06/2022 + again,rest was neg Hx of ac and previous chlamydia x2 and hx of gonorrhea in chart,pt reports hx of trichomonas hX Seen by Manuel on 06/2022 -S/P Metronidazole oral BID x 7 days and now using twice a week IV metro gel px by Delfino contreras plan to complete 12 weeks -has refills done already -discussed w pt in length about starting PREP but pt refusing -states not sexually active Assessment & Plan (07/14/2022 1:31 PM EDT): Pt reports chronic vaginal complaints -now fishy smell vaginal discharge Had last month self test w neg results but w hx of previous BV ,ac and previous chlamydia x2 and hx of gonorrhea in chart,pt reports hx of trichomonas Thinks symptoms started after had IUD removed -however that improved her pelvic pain after removal -discussed w pt in length about starting PREP but pt refusing -states not sexually active x last month -prescribed today empirically metronidazole BID x 7 days and per pt has been taking fluconazole prescribed x vaginal symptoms and has x another 5 days-ok to complete if tolerating -scheduled apt w Sigrid Cuevas For 07/21/2022 to have eval x chronic symptoms. -will check STIs today Tobacco abuse 07/14/2022 Assessment & Plan (10/26/2022 12:51 PM EDT): Reports stopped tobacco 1 year ago -advised to continue to avoid tobacco use Assessment & Plan (08/25/2022 7:50 PM EDT): Reports stopped tobacco 1 year ago -advised to continue to avoid tobacco use Assessment & Plan (07/14/2022 1:32 PM EDT): Will discuss about tobacco use at her next visit Penicillin allergy 07/14/2022 Assessment & Plan (10/26/2022 12:52 PM EDT): Pt not able to give allergy information -upset when asked about this -offered before roll handler referral to clarify but wants to hold x now Assessment & Plan (08/25/2022 7:49 PM EDT): Pt not able to give allergy information -upset when asked about this -offered today roll handler referral to clarify but wants to hold x now Assessment & Plan (07/14/2022 1:34 PM EDT): Pt not able to give allergy information -upset when asked about this -will discuss at future visits about possible roll handler evaluation to confirm if actual allergy to it Right foot pain 05/31/2022 Assessment & Plan (10/06/2023 6:54 PM EDT): -px terbinafine cream for tinea pedis BID for 2 to 3 weeks -advised pt to keep feet dry and change socks twice a day -pt has upcoming apt w dock grader in 10/27/2023 for her chronic complaints,calluses Assessment & Plan (10/26/2022 12:56 PM EDT): Noted some calluses in feet and plantar warts --referred to dock grader -pd to get a call x apt ( referred back in 07/14/[address] Gallardo # [phone] -on gabapentin TID -referred in [facility] visit for EMG -no report Assessment & Plan (08/25/2022 7:49 PM EDT): Noted some calluses in feet and plantar warts --referred to dock grader -pd to get a call x apt Assessment & Plan (07/14/2022 1:22 PM EDT): Noted some calluses in feet and plantar warts --referred today to dock grader Assessment & Plan (05/31/2022 5:46 PM EDT): r/o plantar spur, get x-ray of right foot and refer to podiatry Pt has residual inflammatory scars most likely from tinea pedis recommened continue using clotrimazole cream and take terbinafine tablets prescribed by goat herder recommended use support plantar pads and to have a 15 minute break in the morning and one in the afternoon Flexural eczema 05/31/2022 Health care maintenance 03/16/2022 Assessment & Plan (10/26/2022 1:03 PM EDT): -contraception: refused at last apt -had IUD before but removed -will offer again at next discussion w pt -pap smear 10/2020 Neg to repeat per J. R in 04/2023 -vaccines: s/p covid 19 x4---no record of Bivalent -offered but refusing x now, s/p tdap 2000, s/p p23 2015 ,denies HPV vaccine -pt interested advised to go to vaccine clinic x it ,hep B immune --- 06/2022 all labs for annual exam were normal only LDL 105--Life style changes advised to repeat in 1 year 10/05/2022 : syphilis test is neg , CBC wnl, lyme screen neg Assessment & Plan (08/25/2022 7:51 PM EDT): -pap smear 10/2020 Neg to repeat per Pramod. R in 04/2023 -vaccines: s/p covid 19 x4---no record of Bivalent -offered but refusing x now, s/p tdap 1999, s/p p23 2015 ,denies HPV vaccine -pt interested advised to go to vaccine clinic x it ,hep B immune --- 06/2022 LDL 105--Life style changes advised to repeat in 1 year Assessment & Plan (07/14/2022 1:36 PM EDT): -pap smear 10/2020 Neg -vaccines: s/p covid 19 x4---no record of Bivalent -will offer at next visit, s/p tdap 1999, s/p p23 2015 ,will discuss about HPV vaccination at future visit -annual exam today in fasting -pt agreed to have HIV and rest of STI test -pt has nail splinters and nail damages likely from acrylic nails after removing ---advised strongly to avoid use x now to see if symptoms improves DUB (dysfunctional uterine bleeding) 01/30/2022 Assessment & Plan (05/31/2022 5:45 PM EDT): Pt blames it on IUD, symptoms are not improved with Ibuprofen refer to CON[facility] for evaluation of IUD Bipolar disorder 01/30/2022 Assessment & Plan (10/26/2022 12:52 PM EDT): On risperidone and BDZ-f w psychiatrist Noted to be during the visit anxious/irritable -pt may benefit from newer antipsychothics ? But noted reported SE or allergy to olanzpine ? And per pt to other newer meds -advised to continue to f w her psychiatrist and therapist Assessment & Plan (08/25/2022 7:45 PM EDT): On risperidone and BDZ-f w psychiatrist Noted to be during the visit anxious/irritable -pt may benefit from newer antipsychothics ? But noted reported SE or allergy to olanzpine ? And per pt to other newer meds -advised to continue to f w her psychiatrist and therapist Assessment & Plan (07/14/2022 1:23 PM EDT): On risperidone and BDZ-f w psychiatrist Noted to be during the visit anxious/irritable -pt may benefit from newer antipsychothics ? But noted reported SE or allergy to olanzpine ? -advised to continue to f w her psychiatrist and therapist Chlamydial infection of lower genitourinary trac t 01/30/2022 Class 2 obesity 01/30/2022 Assessment & Plan (10/26/2022 12:51 PM EDT): Advised pt to improve diet and exercise,discussed healthy life style -discussed wood fence erector referral -referred already Assessment & Plan (08/25/2022 7:44 PM EDT): Advised pt to improve diet and exercise,discussed healthy life style -discussed wood fence erector referral -referred today Assessment & Plan (07/14/2022 1:22 PM EDT): BMI 36.03 -life style changes advised -will discuss about wood fence erector referral at her next apt Gastroesophageal reflux disease without esophagi tis 01/30/2022 Assessment & Plan (10/26/2022 12:46 PM EDT): States takes PPI only prn and carafate Chronic symptoms-currently asymptomatic -from GI prescription pt on esomeprazole ( nexium) BID and advised to take either her famotidine or maalox only as needed for burning abdominal pain if still present despite esomeprazole otherwise not need to take those last two meds -continue care w GI -states ws told to have neg h pylori in the past-will hold on repeating now given is taking PPIS Assessment & Plan (08/25/2022 9:46 AM EDT): States takes PPI only prn and carafate Chronic symptoms-currently asymptomatic -pt has apt to f up w GI x 09/06/2022 -states ws told to have neg h pylori in the past-will hold on repeating now given is taking PPIS and will see soon GI Assessment & Plan (07/14/2022 1:19 PM EDT): States takes PPI only prn and carafate -will f at next visit , if needing consistently will advise pt to hold on PPis x 2 weeks and will check h pylori UBT Mild persistent asthma without complication 01/21 Assessment & Plan (10/26/2022 12:47 PM EDT): Currently stable -continue albuterol prn and flovent Assessment & Plan (08/25/2022 9:45 AM EDT): Currently stable -continue albuterol prn and flovent Assessment & Plan (07/14/2022 1:19 PM EDT): Currently stable -continue albuterol prn and flovent Posttraumatic stress disorder 01/30/2022 Resolved Problems Problem Noted Date Diagnosed Date Resolved Date Cat bite of lower leg, left, initial encounter 01/02/2023 08/18/2023 Transaminitis 10/26/2022 08/18/2023 Assessment & Plan (10/26/2022 12:51 PM EDT): From ER records obtained in 08/2022-pt was in ER on 08/10/2022 with abd pain felt likely to be gastritis From labs in ED noted : AST was 55 from 16 here in 06/2022 and ALT 55 from 18 ,alk phos was 74 and lipase 54 -I called pt THEN and inform that pt should have f up of her liver enzymes elevation in no more than 4 weeks -Reorder chem today -states never had blood workup w GI nor here -I will call pt w result -if not pt will call here in 1 week Gonorrhea 01/30/2022 08/18/2023 Encounters Date Type Department Care Team Description 03/30/2024 Orders Only [facility] [address] [place] [phone] Taryn Vigil LPN Screening examination for pulmonary tuberculosis (Primary Dx) 02/25/2024 Refill [facility] [address] [place] [address] [phone] Elizabeth Chatterjee MD 01/24/2024 Telephone [facility] [address] [place] [address] [phone] Elizabeth Chatterjee MD Referral 01/14/2024 Refill [facility] [address] [place] [address] [phone] Elizabeth Chatterjee MD Moderate persistent asthma with acute exacerbation 01/13/2024 Telephone [facility] [address] [place] [address] [phone] Elizabeth Chatterjee MD Referral 01/13/2024 Telephone [facility] [address] [place] [address] [phone] Elizabeth Chatterjee MD Referral 01/10/2024 3:00 PM EST Office Visit [facility] [address] [address] Heavenly Jones FNP Left hip pain (Primary Dx); Left thigh pain from Last 3 Months Immunizations Name Administration Dates Next Due DTP 02/24/1989,1987,1987 DTaP, Unspecified 07/15/1992 HiB, unspecified 02/24/1989 Influenza injectable quadriv alent preservative free 02/01/2020 Influenza, Unspecified 01/13/2005 Influenza, seasonal, injecta ble, preservative free 11/30/2015 MMR 09/11/1996,05/19/1988 Moderna Covid-19 Vaccine 12+ 04/20/1999 Novel [id number] 12/20/2008 OPV 07/15/1992,1987,1987 Pfizer Covid-19 Vaccine 12+ 08/06/2020,,11/30/2015 Pneumococcal Polysaccharide PPSV23 11/29/2015 Rabies - IM Fibroblast Culture 01/11/2023 Rabies, intramuscular 09/15/2019 Td (adult), unspecified 04/20/1999 Tdap 11/05/2015,09/02/2014 Social History Tobacco Use Types Packs/Day Years Used Date Smoking Tobacco: Former Cigarettes Passive Smoke Exposure: Never Smokeless Tobacco: Never Tobacco Cessation:Counseling Given: [...] not to disclose 2021 10:33 AM EDT Last Filed Vital Signs Vital Sign Reading Time Taken Comments Blood Pressure 122/80 01/10/2024 2:37 PM EST Pulse 85 01/10/2024 2:37 PM EST Temperature 36.1 ??C (96.9 ??F) 01/10/2024 2:37 PM ES T Respiratory Rate 16 01/10/2024 2:37 PM EST Oxygen Saturation 99% 01/10/2024 2:37 PM EST Inhaled Oxygen Concentration - - Weight 86.1 kg (189 lb 12.8 oz) 01/10/2024 2:37 PM EST Height 160 cm (5' 3 ) 12/21/2023 6:47 PM EDT Body Mass Index 33.62 12/21/2023 6:47 PM EDT Plan of Treatment Health Maintenance Due Date Last Done Comments Alcohol/Substance Use Screening 1999 Family Planning (PISQ) 2002 Hepatitis B Vaccines (1 of 3 - 19+ 3-dose series) 2006 Pneumococcal Vaccine: Pediatrics (0 to 5 Years) and At-Risk Patients (6 to 49) Years) (2 of 2 - PCV) 11/28/2016 11/29/2015 HPV/Cotest 2017 Cervical Cancer Screening 05/10/2023 Pap Smear 05/10/2023 05/09/2020, 05/09/2020 Depression Screening 06/01/2023 05/31/2022, 06/01/19 23 SDOH Screening 06/01/2023 05/31/2022 COVID-19 Vaccine ( season) 2023 08/06/2020, 07/16/2020, 11/30/2015, Additional history exists Influenza Vaccine (#1) 2023 , 11/30/2015, 12/20/2008, Additional history exists Tobacco Screening 01/09/2025 01/10/2024 DTaP/Tdap/Td Vaccines (7 - Td or Tdap) 11/04/2025 11/05/2015, 09/02/2014, 04/20/1999, Additional history exists Lipid Panel 07/15/2027 07/14/2022 Zoster Vaccines (1 of 2) 2037 RSV Patients and Patients Aged 60 years or older (1 - 1-dose 75+ series) 2062 HIB Vaccines Completed 02/24/1989 IPV Vaccines Completed 07/15/1992, 07/1987, 1987 Hepatitis C Screening Completed 10/26/2022 , 07/14/2022, 04/22/2022, Additional history exists HIV Screening Completed 12/23/2022, 06/2022, 07/14/2022, Additional history exists HPV Vaccines Aged Out No longer eligi ble based on patient's age to complete this topic Hepatitis A Vaccines Aged Out No long er eligible based on patient's age to complete this topic Meningococcal Vaccine Aged Out No marya melida eligible based on patient's age to complete this topic RSV under 20 months Aged Out No longe r eligible based on patient's age to complete this topic Rotavirus Vaccines Aged Out No longer eligible based on patient's age to complete this topic Procedures Procedure Name Priority Date/Time Associated Diagnosis Comments HIV 1 RNA, QUANTITATIVE REAL TIME PCR Routine 12/23/2022 11:50 AM EDT HEPATITIS C AB W/REFL TO HCV RNA, QN, PCR Routine 10/26/2022 12:53 PM EDT High risk sexual behavior, unspecified type LIPID PANEL, STANDARD Routine 07/14/2022 12:40 PM EDT Health care maintenance PAP SMEAR Routine 05/09/2020 12:00 AM EDT from Last 3 Months or Most Recently Relevant to Health Maintenance Results * HIV-1 RNA, Quantitative, Real-Time PCR (12/23/2022 11:50 AM EDT) HIV RNA PCR Qn Copies NOT DETECTED NOT DETECTED copies/mL [facility] HIV RNA PCR Qn Log Copies NOT DETECTED NOT DETECTED [facility] Comment:Result Units: Log co pies/mLThis test was performed using Real-Time Polymerase ChainReaction.Reportable Range: 20 copies/mL to 10,000,000 copies/mL(1.30 log copies/mL to 7.00 log copies/mL).THIS TEST WAS PERFORMED AT:[facility] [place] [phone] FUNES MD 12/23/2022 11:5 0 AM EDT 12/23/2022 1:13 PM EDT us Elizabeth Alex MD LAB BLOOD ORDERAB LES Final Result [facility] [address] [place] [address] [phone] * Hepatitis C Antibody with Reflex to HCV, RNA, Quantitative, Real-Time PCR (10/26/2022 12:53 PM EDT) Hepatitis C Antibody Nonreactive Nonreactive [facility] Comment:Antibodies to HCV no t detected; does not exclude early acuteHCV infection. Blood Venous blood specimen / Unknown 10/26/2022 12:53 PM EDT 10/26/2022 4:04 PM EDT us Elizabeth Alex MD LAB BLOOD ORDERAB LES Final Result [facility] [address] [place] [phone] * (ABNORMAL) Lipid Panel, Standard (07/14/2022 12:40 PM EDT) [facility] Cholesterol, Total 169 <200 mg/dL [facility] HDL Cholesterol 50 > OR = 50 mg/dL [facility] Triglycerides 59 <150 mg/dL [facility] LDL Cholesterol 105(H) mg/dL (calc) [facility] Comment: Reference range: <100 Desirable range <100 mg/dL for primary prevention; ?? <70 mg/dL for patients with CHD or diabetic patients with > or = 2 CHD risk factors. LDL-C is now calculated using the Daniel-Hobson calculation, which is a validated novel method providing better accuracy than the Friedewald equation in the estimation of LDL-C. Daniel SS et al. ZO. 2013;310(19): 6843-9869 (http://education.[employer]/faq/KCF110) Chol/HDLC Ratio 3.4 <5.0 (calc) [facility] Non-HDL Cholesterol 119 <130 mg/dL (calc) [facility] Comment: For patients with diabetes plus 1 major ASCVD risk factor, treating to a non-HDL-C goal of <100 mg/dL (LDL-C of <70 mg/dL) is considered a therapeutic option. Blood Venous blood specimen / Unknown 07/14/2022 12:40 PM EDT 07/14/2022 12:41 PM EDT Narrative [facility] - 07/15/2022 1:43 PM EDT PATIENT UNABLE TO VOID; ADVISED TO RETURN FOR COLLECTION. Elizabeth Alex MD LAB BLOOD ORDERAB LES Final Result Performing Organization Address City/[facility]/ZIP Co de Phone Number [facility] [address], [place] [address] [facility] [address] [place] [address] * Pap Smear (05/09/2020 12:00 AM EDT) Swab Historical Provider LAB CYTOLOGY ORDERABLES F inal Result Performing Organization Address [facility] Co de Phone Number [facility] [address], [facility] [place] [address] from Last 3 Months or Most Recently Relevant to Health Maintenance [place] [address] [place] [address] C3 Care Teams Body Presser Relationship Specialty Start Date End Date Elizabeth Chatterjee MD [address] [place] [id number] PCP - General Internal Medicine 07/26/22
--- OUTSIDE RECORDS SUMMARY | 2024-04-02 13:12 | XMS_ITS | Encounter Summary ---
Author Organization [employer] Address 75 [facility] 7t [place] [address] Care Team Providers Care Community Educator Name Role Phone Elizabeth Reaves MD Primary Care Provide r Elizabeth Chatterjee MD Primary Care Pro vider Reason for Visit * Reason Onset Date Comments Appointment Request 05/28/2022 Encounter Details Date Type Department Care Team ([facility] st Contact Info) Description 05/28/2022 Telephone [facility] MEDICINE [address] [place], [place] [phone] Elizabeth Reaves MD 230 [place] [address] Appointment Request Social History Tobacco Use Types Packs/Day Years Used Date Smoking Tobacco: Former Cigarettes Passive Smoke Exposure: Never Smokeless Tobacco: Never Depression Answer Date Recorded Patient Health Questionnaire-2 [...] suspected to have Coronavirus/COVID-19? No / Unsure 05/31/2022 3:15 PM EDT documented as of this encounter Miscellaneous Notes * Telephone Encounter - Abigail Oquendo Sydney - 05/28/2022 2:24 PM EDT Tc from pt requesting to r/s appt for TP appt. Please contact pt at [phone] documented in this encounter Plan of Treatment Not on file documented as of this encounter Visit Diagnoses Not on filedocumented in this encounter Care Teams Community Educator Relationship Specialty Start Date End Date Elizabeth Reaves MD [address] [place] [phone] PCP - General Family Medicine 10/01/21 07/25/22 Elizabeth Chatterjee MD [address] [place] [address] PCP - General Internal Medicine 07/26/22 documented as of this encounter
--- OUTSIDE RECORDS SUMMARY | 2024-04-02 13:12 | XMS_ITS | Encounter Summary ---
Author Organization [employer] Address 75 [facility] 7t [place] [address] Care Team Providers Care Apparel Sales Associate Name Role Phone Elizabeth Chatterjee MD Primary Care Pro vider Reason for Visit * Reason Onset Date Comments Referral 11/23/2023 Encounter Details Date Type Department Care Team ([facility] st Contact Info) Description 11/23/[address] [facility] MEDICINE 230 [place], [place] [phone] Elizabeth Chatterjee MD 230 [place] [address] Referral Social History Tobacco Use Types Packs/Day Years Used Date Smoking Tobacco: Former Cigarettes Passive Smoke Exposure: Never Smokeless Tobacco: Never Alcohol Use Standard Drinks/Week Comments Never 0 (1 standard drink = 0.6 oz pur e alcohol) Housing Stability Answer Date Recorded What is your housing situation today? I have mayuristas cárdenas 12/06/[address] you [...] encounter Miscellaneous Notes * Telephone Encounter - Kate Dow RN - 11/23/2023 1:13 PM EDT Returned call to Debora at [facility] who stated that referral must be written within 30 days of first appt. Will forward to business development specialist to resend referral with recent date. * Telephone Encounter - Nir Campos - 11/23/2023 10:39 AM EDT Tc from [facility] stating they received referral for physical therapy but they're requesting a newone to be sent with more recent start date for them to have more time to schedule pt in. If any questions you can contact Debora at [phone] ext [phone]. documented in this encounter Plan of Treatment Not on file documented as of this encounter Visit Diagnoses Not on filedocumented in this encounter Care Teams Apparel Sales Associate Relationship Specialty Start Date End Date Elizabeth Chatterjee MD [address] [place] [id number] PCP - General Internal Medicine 07/26/22 documented as of this encounter
--- OUTSIDE RECORDS SUMMARY | 2024-04-02 13:13 | XMS_ITS | Encounter Summary ---
Author Organization [employer] Address 75 [facility] 7t [place] [address] Care Team Providers Care Mine Wedge Sawyer Name Role Phone Elizabeth Chatterjee MD Primary Care Pro vider Reason for Visit * Reason Onset Date Comments Nurse Triage 12/19/2023 Encounter Details Date Type Department Care Team ([facility] st Contact Info) Description 12/19/2023 Telephone [facility] MEDICINE 230 [place], [place] [phone] Elizabeth Chatterjee MD 230 [place] [address] Nurse Triage Social History Tobacco Use Types Packs/Day Years [...] encounter Miscellaneous Notes * Telephone Encounter - Trinidad Cervantes - 12/19/2023 3:59 PM EDT Symptom: Eczema - Caller Reports Outcome: Schedule an urgent appointment (within 4 hours) or talk to a nurse or provider soon Reason: Looks infected The caller accepted this outcome. Contact pt at [phone] documented in this encounter Plan of Treatment Not on file documented as of this encounter Visit Diagnoses Not on filedocumented in this encounter Care Teams Mine Wedge Sawyer Relationship Specialty Start Date End Date Elizabeth Chatterjee MD [address] [place] [address] PCP - General Internal Medicine 07/26/22 documented as of this encounter
--- OUTSIDE RECORDS SUMMARY | 2024-04-02 13:13 | XMS_ITS | Encounter Summary ---
Author Organization [facility] Address [address] [place] [address] Care Team Providers Care Medical Illustrator Name Role Phone Elizabeth Chatterjee MD Primary Care Pro vider Reason for Visit * Reason Comments Foot Pain Right foot painDerma titis of right footTinea pedis of right footDermatophytosis of nail Encounter Details Date Type Department Care Team (Late st Contact Info) Description 03/26/2024 9:15 AM EST Office Visit Orthopedic Surgery - [place] [address] [phone] Piotr Benito, DPAmelia [address] [address] Right foot pain (Primary Dx); Dermatitis of [...] on file Sexual Orientation Not on file documented as of this [...] MD: Isai Last PCP visit: 12/13/2023 IDENTIFIER: @CHRISTIANO Orellana is a 39 y.o. year old female [...] AM EST Office Visit Orthopedic Surgery - [place] [address] [address] [facility] [address] [phone] Piotr Benito DPM [address] [address] documented as of this encounter Visit Diagnoses Diagnosis Right foot pain- Primary Pain in soft tissues of limb Dermatitis of right foot Tinea pedis of right foot Dermatophytosis of nail documented in this encounter Care Teams Medical Illustrator Relationship Specialty Start Date End Date Elizabeth Chatterjee MD 9 [facility] [address] [place] [address] PCP - General 08/24/23 documented as of this encounter
--- OUTSIDE RECORDS SUMMARY | 2024-04-02 13:13 | XMS_ITS | Encounter Summary ---
Author Organization [employer] Address 75 [facility] 7t [place] [address] Care Team Providers Care Quality Technician Name Role Phone Elizabeth Chatterjee MD Primary Care Pro vider Reason for Visit * Reason Onset Date Comments Med Refill 12/19/2023 Encounter Details Date Type Department Care Team ([facility] st Contact Info) Description 12/19/[address] [facility] MEDICINE 230 [place], [place] [phone] Elizabeth Chatterjee MD 230 [place] [address] Med Refill Social History Tobacco Use Types Packs/Day Years [...] encounter Miscellaneous Notes * Telephone Encounter - Cally Bridges LPN - 12/20/2023 8:03 AM EDT Please review not on med list * Telephone Encounter - Trinidad Cervantes - 12/19/2023 4:45 PM EDT TC from pt requesting medication refill. Medications needing refill : triamcinolone (Kenalog) 0.1 % cream To be sent to: [facility]/pharmacy #[id number] [place] [address] [place] documented in this encounter Plan of Treatment Not on file documented as of this encounter Visit Diagnoses Not on filedocumented in this encounter Care Teams Quality Technician Relationship Specialty Start Date End Date Elizabeth Chatterjee MD [address] [place] [address] PCP - General Internal Medicine 07/26/22 documented as of this encounter
[2024-04-02 14:06] LABS: HIV AB/AG Nonreactive (Nonreactive); HIV Num 1 0.08 S/CO (0.00-0.99); ~HepC Num1 0.34 S/CO (0.00-0.79); ~Hepatitis C Antibody Nonreactive (Nonreactive)
[2024-04-04 12:28] LABS: RPR Rapid Plasma Reagin NON-REACTIVE (NON-REACTIVE)
[2024-04-05 01:28] LABS: TS Negative Control Passed; TS Panel A 1; TS Panel B 0; TS Positive Control Passed; TSpotTB Negative (Negative)
[2024-04-06 05:08] LABS: HIV RNA PCR Qn Copies Not Detected Copies/mL; HIV RNA PCR Qn Log Copies Not Detected Log cps/mL
== END 2024-04-02 11:58 | disposition home or self-care (01) ==
LOC: HO.HHCL 11:57
PROVIDERS: Nurse Practitioner Family; Student in an Organized Health Care Education/Training Program; Visit Provider Student in an Organized Health Care Education/Training Program
DX: N89.8 Other specified noninflammatory disorders of vagina (principal); N92.6 Irregular menstruation, unspecified; Z11.1 Encounter for screening for respiratory tuberculosis
CPT/HCPCS: 36415; 86481; 86592; 86803; 87389; 87536; 87900

== ENCOUNTER 2024-07-25 10:24 | Outpatient (REF) | payer MEDICAID, SELFPAY ==
--- OUTSIDE RECORDS SUMMARY | 2024-07-25 11:03 | XMS_ITS | Encounter Summary ---
Author Organization [employer] Address 75 [facility] 7 [place] [address] Care Team Providers Care Loft Worker Apprentice Name Role Phone Elizabeth Chatterjee MD Primary Care Pro vider Reason for Visit * Reason Onset Date Comments Call Back Request 07/11/2024 Encounter Details Date Type Department Care Team ([facility] Contact Info) Description 07/11/2024 Telephone [facility] MEDICINE 230 [place], [place] [phone] Elizabeth Chatterjee MD 230 [place] [address] Call Back Request Social History Tobacco Use Types Packs/Day Years Used Date Smoking Tobacco: Former Cigarettes Passive Smoke Exposure: Never Smokeless Tobacco: Never Comments:Smokes nicotine/wee d together since teenager ,years off , can not specify amount Alcohol Use Standard Drinks/Week Comments Never 0 (1 standard drink = 0.6 oz pur e alcohol) Depression Answer Date Recorded Patient Health Questionnaire-9 Score 1 05/29/2024 Patient Health Questionnaire-9 Score 1 05/29/2024 Last PHQ-9: Questionnaire Data Not on file 0 05/29/2024 Housing Stability Answer Date Recorded What is your housing situation today? I have mayuri cárdenas 05/18/[address] you li ve. Do you have problems with any of the following? None of the above 05/18/2024 Food Insecurity Answer Date Recorded Within the past 12 months, y ou worried that your food would run out before you got money to buy more: Never True 05/18/2024 Within the past 12 months,th e food you bought just didn't last and you didn't have enough money to get more: Never True Transportation Answer Date Recorded In the past 12 months, has l ack of transportation kept you from medical appts, meetings, work or from getting things needed for daily living? No 05/29/2024 Utilities Answer Date Recorded In the past 12 months, has t he electric, gas, oil or water company threatened to shut off services in your home? No 05/18/2024 Depression Answer Date Recorded Patient Health Questionnaire-2 Score 0 05/29/2024 Internet Access Answer Date Recorded Internet Access Q1 Yes 05/18/2024 Internet Access Q2 Not on file 05/18/2024 Comments No Sex and Gender Information Value Date Recorded Sex Assigned at Female 12/21/2021 10:33 AM EDT Legal Sex Female 10:33 AM EDT Gender Identity Female 12/21/2021 10:33 AM EDT Sexual Orientation Choose not to disclose 2021 10:33 AM EDT documented as of this encounter Miscellaneous Notes * Telephone Encounter - Ron Owens - 07/11/2024 9:53 AM EDT Tc from pt requesting a callback from [facility] no further info discussed. Please return call [phone] documented in this encounter Plan of Treatment Not on file documented as of this encounter Visit Diagnoses Not on filedocumented in this encounter Additional Health Concerns Assessment Noted Time PHQ-9 Depression Total Score: 1 05/30/19 25 10:43 AM EDT documented as of this encounter Care Teams Loft Worker Apprentice Relationship Specialty Start Date End Date Elizabeth Chatterjee MD [address] [place] [id number] PCP - General Internal Medicine 07/26/22 documented as of this encounter
[2024-07-25 11:35] LABS: Hematocrit 38.4 % (37.0-47.0); Hemoglobin 13.1 g/dl (12.0-16.0); Mean Corpuscular HGB Conc 34.1 g/dl (31.0-35.0); Mean Corpuscular Hemoglobin 30.2 pg (27.0-33.0); Mean Corpuscular Volume 88.5 fL (80.0-98.0); Mean Platelet Volume 10.9 fL (9.4-12.3); Platelet Count 264 X10*3/uL (160-400); Red Blood Count 4.34 X10*6/uL (4.20-5.50); Red Cell Distribution Width 12.9 % (11.0-16.0); White Blood Count 5.1 X10*3/uL (4.8-10.8)
[2024-07-25 11:49] LABS: Estimated Average Glucose 88 mg/dL; Hemoglobin A1c % 4.7 % (<6.0); Total Hemoglobin (HGBA1C) 3548.0701 umol/L
[2024-07-25 14:42] LABS: Alanine Aminotransferase 16 U/L (0-31); Albumin Level 4.6 g/dL (3.5-5.0); Alkaline Phosphatase 55 U/L (39-117); Anion Gap 11 (12-20); Aspartate Amino Transferase 27 U/L (5-31); Bilirubin Total 0.5 mg/dL (0.0-1.0); Blood Urea Nitrogen 5 mg/dL (9-16); Calcium 9.2 mg/dL (8.4-10.2); Carbon Dioxide 24 mmol/L (22-29); Chloride 111 mmol/L (96-108); Cholesterol 170 mg/dL (<200); Estimated Glomerular Filt Rate > 60; Glucose Random 93 mg/dL (60-115); HDL Cholesterol 44 mg/dL (>40); LDL Cholesterol Calculated 116 mg/dL (<100); Potassium 3.9 mmol/L (3.3-5.1); Sodium 142 mmol/L (135-145); TSH reflex Free T4 0.92 uIU/mL (0.32-4.0); Total Protein 7.8 g/dL (6.5-8.0); Triglycerides 52 mg/dL (<150)
[2024-07-26 02:18] LABS: Follicle Stimulating Hormone 27.3 mIU/mL; Lutenizing Hormone 20.5 mIU/mL; Prolactin 7.5 ng/mL
[2024-07-26 04:11] LABS: Syphilis Screen Nonreactive (Nonreactive)
[2024-07-26 05:03] LABS: HBS Num1 50.46 mIU/mL (0-7.99); HBc Num1 0.12 S/CO (0.00-0.79); HBsAGNum1 0.37 S/CO (0.00-0.99); HIV AB/AG Nonreactive (Nonreactive); HIV Num 1 0.07 S/CO (0.00-0.99); Hepatitis B Core Antibody Nonreactive (Nonreactive); Hepatitis B Surface Antigen Negative (Negative); ~HepC Num1 0.15 S/CO (0.00-0.79); ~Hepatitis B Surface Antibody REACTIVE (Nonreactive); ~Hepatitis C Antibody Nonreactive (Nonreactive)
[2024-08-05 16:19] LABS: Testosterone, Free 2.2 pg/mL (0.1-6.4); Testosterone, Total 33 ng/dL (2-45)
[2024-08-06 08:13] LABS: Estradiol Ultra Sensitive 81 pg/mL
== END 2024-07-25 10:25 | disposition home or self-care (01) ==
LOC: HO.HHCL 10:24
PROVIDERS: Visit Provider Student in an Organized Health Care Education/Training Program
DX: Z00.00 Encounter for general adult medical examination without abnormal findings (principal); N91.2 Amenorrhea, unspecified
CPT/HCPCS: 36415; 80053; 80061; 82670; 83001; 83002; 83036; 84146; 84402; 84403; 84443; 85027; 86704; 86706; 86780; 86803; 87338; 87340; 87389

== ENCOUNTER 2024-12-18 11:32 | Outpatient (REF) | payer MEDICAID, SELFPAY ==
--- OUTSIDE RECORDS SUMMARY | 2024-12-18 14:40 | XMS_ITS | Encounter Summary ---
Author Organization [employer] Address [address] 7[address] [place] [address] Care Team Providers Care Flare Worker Name Role Phone Elizabeth Chatterjee MD Primary Care Pro vider Niall Magallanes RN Unavailable [phone] [place] Aldana Unavailable Encounter Details Date Type Department Care Team ([facility] Contact Info) Description 12/18/2024 2:40 PM EDT Office Visit [facility] [address] [place] [address] [phone] Elizabeth eRaves MD [address] [place], [place] [phone] UTI symptoms (Primary Dx); Migraine with aura and without status migrainosus, not intractable Social History Tobacco Use Types Packs/Day Years [...] before you got money to buy more: Sometimes True 2024 Within the past 12 months,th e food you bought just didn't last and you didn't have enough money to get more: Sometimes True 09/12/2024 Transportation Answer Date Recorded In the past [...] AM EDT documented as of this encounter Last Filed Vital Signs Vital Sign Reading Time Taken Comments Blood Pressure 139/87 12/18/2024 2:35 PM EDT Pulse 90 12/18/2024 2:35 PM EDT Temperature 35.2 C (95.3 F) 12/18/2024 2:35 PM EDT Respiratory Rate 18 12/18/2024 2:35 PM EDT Oxygen Saturation 98% 12/18/2024 2:35 PM EDT Inhaled Oxygen Concentration - - Weight 85.7 kg (189 lb) 12/18/2024 2:35 PM EDT Height 160 cm (5' 3 ) 12/18/2024 2:35 PM EDT Body Mass Index 33.48 12/18/2024 2:35 PM EDT documented in this encounter Progress Notes * Elizabeth Dodson MD - 12/18/2024 2:40 PM EDT SUBJECTIVE: Myesha Orellana is a 39 y.o. year old female who presents for acute visit . Acute Concerns: Patient reports she has been having migraines for entire life but lately her migraines has been getting worse reports increased frequency 2-3 episodes per week, reports headache is localized to frontal, behind her eyes, she does not tolerate light and sometimes she does not tolerate noise reports sometimes she sees lights when she has the headache, she tells me she used to take acetaminophen for migraine headaches but then she noticed migraine Excedrin was more helpful, she tells me that her car has tinge windows that helps her with the sunlight not triggering headaches, she tells me she needs a letter for the [facility] to note that she has this diagnosis, I let patient know that for letters she needs to go to medical records and that I don't know if migraine is an acceptable diagnosis for tinge windows Patient also tells me she has been having urinary frequency, lower abdomen pain, urinary urgency and flank pain she denies blood in the urine or fever, she tells me she has been going to the emergency room for UTIs before last time she was given ceftriaxone and doxycycline for this UTIs but she still has same symptoms denies vaginal discharge and denies being sexually active Social History Social History Narrative Not on file Problem List[1] DUB (dysfunctional uterine bleeding) Bipolar disorder (HCC) Class 2 obesity Gastroesophageal reflux disease without esophagitis Mild persistent asthma without complication Posttraumatic stress disorder Health care maintenance Right foot pain Tobacco abuse Penicillin allergy History of nephrolithiasis Anxiety Amenorrhea Acute cough Dysmenorrhea Cholelithiasis Eczema of both hands Migraine with aura and without status migrainosus, not intractable UTI symptoms Family History[2] Review of Systems Constitutional: Negative. HENT: Negative. Respiratory: Negative. Cardiovascular: Negative. Genitourinary: Positive for dysuria, frequency, pelvic pain and urgency. Negative for decreased urine volume, difficulty urinating, dyspareunia, enuresis, flank pain, genital sores, hematuria, menstrual problem, vaginal bleeding, vaginal discharge and vaginal pain. OBJECTIVE: Vitals: 12/18/24 1435 BP: 139/87 BP Location: Right arm Patient Position: Sitting BP Cuff Size: Adult Pulse: 90 Resp: 18 Temp: 95.3 ??F (35.2 ??C) TempSrc: Temporal SpO2: 98% Weight: 189 lb (85.7 kg) Height: 5' 3 (1.6 m) Physical Exam Constitutional: Appearance: Normal appearance. Cardiovascular: Rate and Rhythm: Normal rate and regular rhythm. Pulmonary: Effort: Pulmonary effort is normal. Breath sounds: Normal breath sounds. Abdominal: General: Abdomen is flat. Palpations: Abdomen is soft. Musculoskeletal: Right lower leg: No edema. Left lower leg: No edema. Neurological: Mental Status: She is alert. Follow Up: No follow-ups on file. Medications Ordered Prior to Encounter[3] Problem List Items Addressed This Visit Migraine with aura and without status migrainosus, not intractable I advise to avoid migraine triggers like red wine, chocolate, cheese, strong perfumes I prescribed for patient excedrin migraine and zofran F/u with PCP Relevant Medications npxvzui-pnppnyrzqmjga-fsejlmaj (Excedrin Migraine) 250-250-65 MG tablet ondansetron (Zofran) 4 MG tablet UTI symptoms - Primary UA and culture ordered CG ordered BV ordered Patient will be contacted with results Relevant Orders Bacterial Vaginosis Panel Chlamydia/N. Gonorrhoeae RNA, TMA, Vaginal Culture, Urine, Routine POCT Urinalysis [1] Patient Active Problem List Diagnosis DUB (dysfunctional uterine bleeding) Bipolar disorder (HCC) Class 2 obesity Gastroesophageal reflux disease without esophagitis Mild persistent asthma without complication Posttraumatic stress disorder Health care maintenance Right foot pain Tobacco abuse Penicillin allergy History of nephrolithiasis Anxiety Amenorrhea Acute cough Dysmenorrhea Cholelithiasis Eczema of both hands Migraine with aura and without status migrainosus, not intractable UTI symptoms [2] Family History Problem Relation Name Age of Onset Other (breast ca x2) Mother's Sister Other (lung ca from smoking) Maternal Grandmother [3] Current Outpatient Medications on File Prior to Visit Medication Sig Dispense Refill albuterol (2.5 MG/3ML) 0.083% nebulizer solution inhale 3 milliliter by nebulization route 3 times every day as needed albuterol (Ventolin HFA) 108 (90 Base) MCG/ACT inhaler INHALE 2 PUFFS BY MOUTH EVERY 4 HOURS NEEDED FOR WHEEZING OR SHORTNESS OF BREATH. 18 g 2 famotidine (Pepcid) 20 MG tablet TAKE 1 TABLET (20 MG) BY MOUTH IF NEEDED AT BEDTIME FOR HEARTBURN.90 tablet 0 gabapentin (Neurontin) 300 MG capsule Take 1 capsule (300 mg) by mouth if needed in the morning, atnoon, and at bedtime (nerve pain). 90 capsule 3 hydrocortisone 2.5 % cream Apply topically if needed for rash (ezcema). 28 g 0 lidocaine (Lidoderm) 5 % patch Apply 1 patch topically Once per day. Remove & discard patch within 12 hours or as directed by MD. 15 patch 2 loratadine (Claritin) 10 MG tablet TAKE 1 TABLET BY MOUTH EVERY MORNING 90 tablet 1 LORazepam (Ativan) 1 MG tablet Take 1 tablet by mouth at bed time. Mometasone Furoate (Asmanex HFA) 200 MCG/ACT aerosol Inhale 1 puff 2 times daily. 13 g 11 Nebulizers misc Use QID as needed for asthma treatments at home 1 each 0 ondansetron ODT (Zofran-ODT) 4 MG disintegrating tablet Take 1 tablet (4 mg) by mouth every 12 (twelve) hours if needed for nausea or vomiting. 20 tablet 1 sucralfate (Carafate) 1 g tablet Take 1 tablet (1 g) by mouth if needed in the morning, at noon, inthe evening, and at bedtime (epigastric pain,GERD). TAKE 1 TABLET BY MOUTH FOUR TIMES DAILY TAKE VAN EMPTY STOMACH BEFORE MEALS AND AT BEDTIME 120 tablet 2 No current facility-administered medications on file prior to visit. documented in this encounter Miscellaneous Notes * Assessment & Plan Note - Elizabeth Dodson MD - 12/18/2024 3:16 PM EDT Associated Problem(s): Migraine with aura and without status migrainosus, not intractable I advise to avoid migraine triggers like red wine, chocolate, cheese, strong perfumes I prescribed for patient excedrin migraine and zofran F/u with PCP * Assessment & Plan Note - Elizabeth Dodson MD - 12/18/2024 3:16 PM EDT Associated Problem(s): UTI symptoms UA and culture ordered CG ordered BV ordered Patient will be contacted with results documented in this encounter Plan of Treatment Scheduled Orders Name Type Priority Associated Diagnoses Orde r Schedule Culture, Urine, Routine Microbiology Routine UTI symptoms Expected: 12/18/2024 (Approximate), Expires: 12/18/2025 documented as of this encounter Procedures Procedure Name Priority Date/Time Associated Diagnosis Comments POCT URINALYSIS DIPSTICK Routine 12/18/2024 3:19 PM EDT UTI symptoms BACTERIAL VAGINOSIS PANEL Routine 12/18/2024 3:10 PM EDT UTI symptoms CHLAMYDIA/N. GONORRHOEAE RNA, TMA, UROGENITAL Routine 12/18/2024 3:10 PM EDT UTI symptoms documented in this encounter Results * POCT Urinalysis (12/18/2024 3:19 PM EDT) Color, UA Yellow Clarity, UA Clear Glucose, UA Negative Bilirubin, UA Negative Ketones, UA Negative Spec Grav, UA 1.030 Blood, UA Negative Negative, None Detected pH, UA 5.5 Protein, UA Trace Urobilinogen, UA 0.2 Leukocytes, UA Negative Negative, Rare, Trace Nitrite, UA Negative Negative, None Detected Appearance, UA clear QC Media Lot # [id number] Lot# Expiration Date [id number] Urine (Urine, Random) 12/18/2024 3:19 PM EDT us Elizabeth Dodson MD POINT OF CARE TEST EN TER/EDIT ORDERABLES Final Result * Chlamydia/N. Gonorrhoeae RNA, TMA, Vaginal (12/18/2024 3:10 PM EDT) CT PCR NOT DETECTED Not Detect. [facility] Comment:A not detected test result does not exclude the possibilityof infection because test results can be affected byimproper specimen collection, concurrent antibiotic therapy,or the number of organisms in the specimen which may bebelow the sensitivity of the test. As with many diagnostictests, results from the Xpert CT/NG assay should beinterpreted in conjunction with other laboratory andclinical data available to the clinician.Xpert CT/NG performance has not been evaluated in patientsless than 14 years of age. The assay should not be used forthe evaluationof suspected sexual abuse or for other medico-legalindications. Additional testing is recommended in anycircumstance when false positive or false negative resultscould lead to adverse medical, social or psychologicalconsequences. NG PCR NOT DETECTED Not Detect. [facility] Comment:A not detected test result does not exclude the possibilityof infection because test results can be affected byimproper specimen collection, concurrent antibiotic therapy,or the number of organisms in the specimen which may bebelow the sensitivity of the test. As with many diagnostictests, results from the Xpert CT/NG assay should beinterpreted in conjunction with other laboratory andclinical data available to the clinician.Xpert CT/NG performance has not been evaluated in patientsless than 14 years of age. The assay should not be used forthe evaluationof suspected sexual abuse or for other medico-legalindications. Additional testing is recommended in anycircumstance when false positive or false negative resultscould lead to adverse medical, social or psychologicalconsequences. Swab Vaginal structure / Unknown 12/18/2024 3:10 PM EDT 12/19/2024 11:33 AM EDT us Elizabeth Dodson MD LAB MICROBIOLOGY - NERAL ORDERABLES Final Result [facility] [address] [place] [phone] * (ABNORMAL) Bacterial Vaginosis Panel (12/18/2024 3:10 PM EDT) TRICHOMONAS VAGINALIS DETECTION BY PCR NOT DETECTED Not Detect [facility] BACTERIAL VAGINOSIS DETECTION BY PCR POSITIVE(A) Negative [facility] Comment:The BV organism targ ets of the Xpert Xpress MVP test can becommensal in women; Xpert Xpress MVP positive results forbacterial vaginosis should be considered in conjunction withother clinical and patient information to determine thedisease status. Organisms that are not detected by the XpertXpress MVP test have also been reported to be associatedwith BV and aerobic vaginitis.The Xpert Xpress MVP test performance has not been evaluatedin patients under the age of 14. JENNIFER GROUP DETECTION BY PCR NOT DETECTED Not Detect [facility] Jennifer glab krusei PCR NOT DETECTED Not Detect [facility] Swab Vaginal structure / Unknown 12/18/2024 3:10 PM EDT 12/19/2024 11:33 AM EDT us Elizabeth Dodson MD LAB MICROBIOLOGY - NERAL ORDERABLES Final Result [facility] [address] [place] [phone] documented in this encounter Visit Diagnoses Diagnosis UTI symptoms- Primary Migraine with aura and without status migrainosus, not intractable documented in this encounter Additional Health Concerns Assessment Noted Time PHQ-9 Depression Total Score: 1 05/30/19 25 10:43 AM EDT documented as of this encounter Care Teams Flare Worker Relationship Specialty Start Date End Date Elizabeth Chatterjee MD [address] [place] [address] PCP - General Internal Medicine 07/26/22 Niall Magallanes, MACY [address] [place] [phone] Registered Nurse Family Medicine 08/29/24 Geneva Aldana 08/29/24 documented as of this encounter
[2024-12-19 13:23] LABS: Bacterial Vaginosis PCR POSITIVE (Negative); Candida Group PCR NOT DETECTED (Not Detect); Candida glab krusei PCR NOT DETECTED (Not Detect); Trichomonas vaginalis PCR NOT DETECTED (Not Detect)
[2024-12-19 13:54] LABS: CT PCR NOT DETECTED (Not Detect.); NG PCR NOT DETECTED (Not Detect.)
--- OUTSIDE RECORDS SUMMARY | 2024-12-19 14:59 | XMS_ITS | Encounter Summary ---
Author Organization [employer] Address [address] [place] [address] Care Team Providers Care Prom Burn Off Operator Name Role Phone Elizabeth Reaves MD Primary Care Provide r Elizabeth Chatterjee MD Primary Care Pro vider Niall Magallanes RN Unavailable [phone] [place] Aldana Unavailable Encounter Details Date Type Department Care Team (Late st Contact Info) Description 04/26/2022 Orders Only [facility] MED [facility] PEDS [address] [place], [place] [phone] Marline Johnson MD [address] [place] [address] Vaginal discharge (Primary Dx) Social History Tobacco [...] infective documented in this encounter Care Teams Prom Burn Off Operator Relationship Specialty Start Date End Date Elizabeth Reaves MD [address] [place] [address] PCP - General Family Medicine 10/01/21 07/25/22 Elizabeth Chatterjee MD [address] [place] [address] PCP - General Internal Medicine 07/26/22 Niall Magallanes, MACY [address] [place] [address] Registered Nurse Family Medicine 08/29/24 Geneva Aldana 08/29/24 documented as of this encounter
--- OUTSIDE RECORDS SUMMARY | 2024-12-19 14:59 | XMS_ITS | Encounter Summary ---
Author Organization [employer] Address [address] [place] [address] Care Team Providers Care Asphalt Spreader Name Role Phone Elizabeth Chatterjee MD Primary Care Pro vider Niall Magallanes RN Unavailable [phone] [place] Aldana Unavailable Encounter Details Date Type Department Care Team ([facility] st Contact Info) Description 04/13/2024 Orders Only [facility] MED [facility] PEDS [address] [place] [address] Provider, MD Ze Social History Tobacco Use Types Packs/Day Years [...] on file documented as of this encounter Procedures Procedure Name Priority Date/Time Associated Diagnosis Comments HM PAP/HPV Routine 02/02/2024 2:17 PM EST documented in this encounter Results * HM PAP/HPV (02/02/2024 2:17 PM EST) Historical Provider HEALTH MAINTENANCE Final Result documented in this encounter Visit Diagnoses Not on filedocumented in this encounter Care Teams Asphalt Spreader Relationship Specialty Start Date End Date Elizabeth Chatterjee MD [address] [place] [phone] PCP - General Internal Medicine 07/26/22 Niall Magallanes, RN [address] [place] [address] Registered Nurse Family Medicine 08/29/24 Geneva Aldana 08/29/24 documented as of this encounter
--- OUTSIDE RECORDS SUMMARY | 2024-12-19 14:59 | XMS_ITS | Encounter Summary ---
Author Organization [employer] Address [address] [place] [address] 7 [place] [address] Care Team Providers Care Vine Fruit Farming Supervisor Name Role Phone Elizabeth Chatterjee MD Primary Care Pro vider Niall Magallanes RN Unavailable [phone] [place] Aldana Unavailable Reason for Visit * Reason Onset Date Comments PT-1 07/19/2024 Encounter Details Date Type Department Care Team ([facility] st Contact Info) Description 07/19/2024 Telephone [facility] MEDICINE [address] [place] [address] Elizabeth Chatterjee MD [address] [place] [address] PT-1 Social History Tobacco Use Types Packs/Day Years [...] encounter Miscellaneous Notes * Telephone Encounter - Nir Campos - 07/19/2024 2:34 PM EDT Patient calling requesting PT1 Home Address verified: Y/N: Yes Provider name or facility name: [facility] Facility Address: [address] [place] [address] Escort needed: Y/N: No Do you have a wheelchair: Y/N: No If yes- Manual or electric: N/A Visits: Twice a month documented in this encounter Plan of Treatment Not on file documented as of this encounter Visit Diagnoses Not on filedocumented in this encounter Additional Health Concerns Assessment Noted Time PHQ-9 Depression Total Score: 1 05/30/19 25 10:43 AM EDT documented as of this encounter Care Teams Vine Fruit Farming Supervisor Relationship Specialty Start Date End Date Elizabeth Chatterjee MD [address] [place] [address] PCP - General Internal Medicine 07/26/22 Niall Magallanes RN [address] [place], [place] [address], [place] [address] Registered Nurse Family Medicine 08/29/24 Geneva Aldana 08/29/24 documented as of this encounter
--- OUTSIDE RECORDS SUMMARY | 2024-12-19 14:59 | XMS_ITS | Encounter Summary ---
Author Organization [employer] Address [address] [place] [address] 7 [place] [address] Care Team Providers Care Oil Well Perforator Operator Name Role Phone Elizabeth Chatterjee MD Primary Care Pro vider Niall Magallanes RN Unavailable [phone] [place] Aldana Unavailable Reason for Visit * Reason Onset Date Comments Call Back Request 07/11/2024 Encounter Details Date Type Department Care Team ([facility] st Contact Info) Description 07/11/2024 Telephone [facility] MED[facility] [address] [place] [address] Elizabeth Chatterjee MD [address] [place] [address] Call Back Request Social History Tobacco Use [...] Miscellaneous Notes * Telephone Encounter - Ron Ownes - 07/11/2024 9:53 AM EDT Tc from pt requesting a callback from [place] no further info discussed. Please return call [phone] documented in this encounter Plan of Treatment Not on file documented as of this encounter Visit Diagnoses Not on filedocumented in this encounter Additional Health Concerns Assessment Noted Time PHQ-9 Depression Total Score: 1 05/30/19 25 10:43 AM EDT documented as of this encounter Care Teams Oil Well Perforator Operator Relationship Specialty Start Date End Date Elizabeth Chatterjee MD [address] [place] [address] PCP - General Internal Medicine 07/26/22 Niall Magallanes, MACY [address] [place] [phone] Registered Nurse Family Medicine 08/29/24 Geneva Aldana 08/29/24 documented as of this encounter
--- OUTSIDE RECORDS SUMMARY | 2024-12-19 15:00 | XMS_ITS | Encounter Summary ---
Author Organization [employer] Address [address] [place] [address] 7t [place] [address] Care Team Providers Care Ham Pumper Name Role Phone Elizabeth Chatterjee MD Primary Care Pro vider Niall Magallanes RN Unavailable [phone] Geneva Aldana Unavailable Reason for Visit * Reason Onset Date Comments Nurse Triage 12/19/2023 Encounter Details Date Type Department Care Team ([facility] st Contact Info) Description 12/19/2023 Telephone [facility] MEDICINE [address] [place] [address] Elizabeth Chatterjee MD [address] [place] [address] Nurse Triage Social History Tobacco Use Types [...] caller accepted this outcome. Contact pt at [phone] documented in this encounter Plan of Treatment Not on file documented as of this encounter Visit Diagnoses Not on filedocumented in this encounter Care Teams Ham Pumper Relationship Specialty Start Date End Date Elizabeth Chatterjee MD [address] [place] [address] PCP - General Internal Medicine 07/26/22 Niall Magallanes, RN [address] [place] [phone] Registered Nurse Family Medicine 08/29/24 Geneva Aldana 08/29/24 documented as of this encounter
--- OUTSIDE RECORDS SUMMARY | 2024-12-19 15:00 | XMS_ITS | Encounter Summary ---
Author Organization [email or web address] Address [address] [facility] 7t [place] [address] Care Team Providers Care Dividing Machine Operator Name Role Phone Elizabeth Chatterjee MD Primary Care Pro vider Niall Magallanes RN Unavailable [phone] [place] Aldana Unavailable Reason for Visit * Reason Comments Care Management C3CM- Initial assess ment/enrollment/unable to LVM Encounter Details Date Type Department Care Team ([facility] st Contact Info) Description 11/15/2024 Patient Outreach [facility] MED & PEDS [address] [place] [address] Elizabeth Chatterjee MD [address] [place] [address] Care Management (C3CM- Initial assessment/enrollmen t/unable to LVM) Social History Tobacco Use Types Packs/Day Years [...] as of this encounter Progress Notes * Niall Magallanes RN - 11/15/2024 12:58 PM EDT CM Niall Magallanes RN, placed outbound call to patient for agreed upon assessment time. No answer at this time, unable to LVM due to full mailbox. CHW will attempt contact with patient to reschedule missed initial assessment. documented in this encounter Plan of Treatment Not on file documented as of this encounter Visit Diagnoses Not on filedocumented in this encounter Additional Health Concerns Assessment Noted Time PHQ-9 Depression Total Score: 1 05/30/19 10:43 AM EDT documented as of this encounter Care Teams Dividing Machine Operator Relationship Specialty Start Date End Date Elizabeth Chatterjee MD [address] [place] [phone] PCP - General Internal Medicine 07/26/22 Niall Magallanes RN [address] [place] [address] [place] [address] Registered Nurse Family Medicine 08/29/24 Geneva Aldana 08/29/24 documented as of this encounter
--- OUTSIDE RECORDS SUMMARY | 2024-12-19 15:00 | XMS_ITS | Encounter Summary ---
Author Organization [employer] Address [address] [place] [address] Care Team Providers Care Diffusion Furnace Operator Name Role Phone Elizabeth Reaves MD Primary Care Provide r Elizabeth Chatterjee MD Primary Care Pro vider Niall Magallanes RN Unavailable [phone] [place] Aldana Unavailable Reason for Visit * Reason Onset Date Comments Appointment Request 05/28/2022 Encounter Details Date Type Department Care Team (Late st Contact Info) Description 05/28/2022 Telephone [facility] MEDICINE [address] [place], [place] [phone] Elizabeth Reaves MD [address] [place], [place] [phone] Appointment Request Social History Tobacco Use Types [...] PM EDT documented as of this encounter Functional Status * Over the past 2 weeks, how often have you been bothered by any of the following problems? Question Answer Date of Assessment Author Little interest or pleasure in doing things Not at all 05/31/2022 3:55 PM EDT Nalini May [place] Feeling down, depressed, or hopeless Not at all 05/31/2022 3:55 PM EDT Nalini May [place] Patient Health Questionnaire-2 Score 0 05/31/2022 3:55 PM EDT Darryl May [place] documented as of this encounter Miscellaneous Notes * Telephone Encounter - Abigail Oquendo Grimes - 05/28/2022 2:24 PM EDT Tc from pt requesting to r/s appt for TP appt. Please contact pt at [phone] documented in this encounter Plan of Treatment Not on file documented as of this encounter Visit Diagnoses Not on filedocumented in this encounter Care Teams Diffusion Furnace Operator Relationship Specialty Start Date End Date Elizabeth Reaves MD [address] [place] [address] PCP - General Family Medicine 10/01/21 07/25/22 Elizabeth Chatterjee MD [address] [place] [address] PCP - General Internal Medicine 07/26/22 Niall Magallanes, RN [address] [place] [address] Registered Nurse Family Medicine 08/29/24 Geneva Aldana 08/29/24 documented as of this encounter
--- OUTSIDE RECORDS SUMMARY | 2024-12-19 15:00 | XMS_ITS | Clinical Summary ---
Author Organization [facility] Address [address] [place] [address] Phone Care Team Providers Care Structural Steel Erector Name Role Phone Elizabeth Chatterjee MD Primary Care Pro vider Allergies Active Allergy Reactions Criticality Noted Date Comments Cabotegravir Hives 08/19/2023 Hydrocodone 01/25/2022 Hydrocodone-Acetaminophe n Nausea And Vomiting 03/08/2016 Lactose 11/17/2019 Metronidazole Other 08/19/2023 Olanzapine Fatigue,Unknown 03/08/2016 Penicillin 01/02/2024 Penicillin G 02/09/2022 Ceftriaxone received before with no problem Terbinafine Shortness of breath High 01/02/2024 Sweating Bupropion Hcl Psychiatric 09/06/2024 Medications hydrocortisone 2.5 % cream Apply topically 1 (one) time each day. 30 g 2 4 Active hydrocortisone 2.5 % cream Apply topically 1 (one) time each day. 60 g 2 4 01/16/20 25 Active ciprofloxacin (CIPRO) 500 mg tablet Take 1 tablet (500 mg total) by mouth 2 (two) times a day for 7 days. 14 tablet 5 12/03/19 25 ondansetron (ZOFRAN) 4 mg tablet Take 1 tablet (4 mg total) by mouth every 6 (six) hours for 3 days. 12 tablet 5 12/08/19 25 Active Problems No known active problems Encounters Date Type Department Care Team Description 12/04/2024 3:34 AM EDT - 12/04/2024 3:45 AM EDT Emergency [facility] Emergency [address] [place] [address] Nausea (Primary Dx) Discharge Disposition: Home or Self Care 11/25/2024 10:05 AM EDT - 11/25/2024 10:40 AM EDT [facility] Emergency [address] [place] [address] Tammy Mckeon MD Abdominal hematoma (Primary Dx) Discharge Disposition: Home or Self Care 11/24/2024 9:16 PM EDT - 11/25/2024 1:29 AM EDT [facility] Emergency [address] [place] [address] Right upper quadrant abdominal pain (Primary Dx); Transaminitis Discharge Disposition: Another Health Care Institution Not Defined 10/29/2024 4:30 AM EDT - 10/29/2024 5:26 AM EDT [facility] Emergency [address] [place] [address] Acute cystitis without hematuria (Primary Dx) Discharge Disposition: Home or Self Care from Last 3 Months Surgical History Surgery Date Site/Laterality Comments CHOLECYSTECTOMY D&C FIRST TRIMESTER / TX INC OMPLETE / MISSED / SEPTIC / INDUCED Medical History Medical History Date Comments Gallstone Gastritis Social History Tobacco Use Types Packs/Day Years Used Date Smoking Tobacco: Some Days Cigarettes Smokeless Tobacco: Never Tobacco Cessation:Ready to Q uit: Not Asked; Counseling Given: Not Answered Alcohol Use Standard Drinks/Week Comments Never 0 (1 standard drink = 0.6 oz pur e alcohol) Comments No Sex and Gender Information Value Date Recorded Sex Assigned at Female 10/29/2024 4:44 AM EDT Legal Sex Female 7:02 AM EST Gender Identity Female 10/29/2024 4:44 AM EDT Sexual Orientation Not on file Obstetrics History Last Filed Vital Signs Vital Sign Reading Time Taken Comments Blood Pressure 108/74 12/04/2024 1:02 AM EDT Pulse 88 12/04/2024 1:02 AM EDT Temperature 36.9 C (98.4 F) 11/25/2024 9:56 AM EDT Respiratory Rate 18 12/04/2024 1:02 AM EDT Oxygen Saturation 99% 12/04/2024 1:02 AM EDT Inhaled Oxygen Concentration - - Weight 79.4 kg (175 lb) 12/04/2024 1:02 AM EDT Height 160 cm (5' 3 ) 12/04/2024 1:02 AM EDT Body Mass Index 31 12/04/2024 1:02 AM EDT Plan of Treatment Health Maintenance Due Date Last Done Comments Hepatitis B Vaccines (1 of 3 - 19+ 3-dose series) 2006 HPV Vaccines (1 - 3-dose SCDM series) 2014 Pneumococcal Vaccine: Pediatrics (0 to 5 Years) and At-Risk Patients (6 to 49 Years) (2 of 2 - PCV) 11/28/2016 11/29/2015 Social Influencers of Health Screening 01/24/2022 Cervical Cancer Screening: Pap Smear 05/10/2023 05/09/2020, 08/11/2017, 08/11/2017 Depression Screening 02/22/2024 COVID-19 Vaccine ( season) 2024 08/06/2020, 07/16/2020, 11/30/2015, Additional history exists Influenza Vaccine (#1) 2024 , 02/01/2020, 11/30/2015, Additional history exists DTaP,Tdap,and Td Vaccines (8 - Td or Tdap) 11/04/2025 11/05/2015, 09/02/2014, 04/20/1999, Additional history exists Cholesterol Screening (Lipid Panel) 07/25/2029 07/25/2024, 07/14/2022 RSV Immunization Adult Patients (1 - 1-dose 75+ series) 2062 HIB Vaccines Completed 02/24/1989 IPV Vaccines Completed 07/15/1992, 0407/1987, 1987 MMR Vaccines Completed 09/11/1996, 05/19/1988 HIV Screening Completed 07/25/2024, 12/23/2022 Hepatitis C Screening Completed 07/25/2024, 023 Hepatitis A Vaccines Aged Out No long er eligible based on patient's age to complete this topic Meningococcal ACWY Vaccine Aged Out N o longer eligible based on patient's age to complete this topic Meningococcal B Vaccine Aged Out No l onger eligible based on patient's age to complete this topic RSV Immunization Patients Under 20 months Aged Out No longer eligible based on patient's age to complete this topic Varicella Vaccines Aged Out No longer eligible based on patient's age to complete this topic Procedures Procedure Name Priority Date/Time Associated Diagnosis Comments ECG ANNOTATED 12/05/2024 HCG, SERUM, QUALITATIVE STAT Add-on 12/04/2024 1:05 AM EDT CBC WITH AUTO DIFFERENTIAL STAT 12/04/2024 1:05 AM EDT MAGNESIUM STAT 12/04/2024 1:05 AM EDT LIPASE STAT 12/04/2024 1:05 AM EDT COMPREHENSIVE METABOLIC PANEL STAT 12/04/2024 1:05 AM EDT CBC AND DIFFERENTIAL STAT 12/04/2024 1:05 AM EDT TROPONIN I HIGH SENSITIVITY Timed 12/04/2024 1:05 AM EDT ECG 12-LEAD STAT 12/04/2024 12:54 AM EDT ECG ANNOTATED 11/26/2024 CULTURE BLOOD STAT 11/25/2024 1:03 AM EDT CULTURE BLOOD STAT 11/25/2024 1:[address] ABDOMEN PELVIS W CONTRAST STAT 11/24/2024 10:32 PM EDT ECG 12-LEAD STAT 11/24/2024 9:53 PM EDT CBC WITH AUTO DIFFERENTIAL STAT 11/24/2024 9:43 PM EDT LIPASE STAT 11/24/2024 9:43 PM EDT TROPONIN I HIGH SENSITIVITY STAT 11/24/2024 9:43 PM EDT CBC AND DIFFERENTIAL STAT 11/24/2024 9:43 PM EDT MAGNESIUM STAT 11/24/2024 9:43 PM EDT COMPREHENSIVE METABOLIC PANEL STAT 11/24/2024 9:43 PM EDT HCG, SERUM, QUALITATIVE STAT 11/24/2024 9:43 PM EDT PAP SMEAR Routine 08/11/2017 from Last 3 Months or Most Recently Relevant to Health Maintenance Results * ECG-Annotated (12/05/2024) Only the most recent of2 resultswithin the time period is included. us Provider Onbase MD ECG ORDERABLES Final Result * Troponin I high sensitivity (12/04/2024 1:05 AM EDT) Only the most recent of2 resultswithin the time period is included. High Sensitivity Troponin I <3 <=54 ng/L LAB CHEMISTRY METHOD 12/04/2024 1:48 AM EDT [facility] Blood Venous blood specimen / Unknown Venipuncture / Unknown 12/04/2024 1:05 AM EDT 12/04/2024 1:22 AM EDT Narrative [facility] - 12/04/2024 1:48 AM EDT High levels of biotin in samples may falsely decrease hsTroponin values. Use caution when interpreting hsTroponin results in patients taking biotin who exhibit renal impairment (eGFR <60) or in patients taking more than 20 mg/day of biotin. Tawanna Weiner MD LAB BLOOD ORDERABLES Final Result [facility] [address] [place] [address], [place] [phone] * (ABNORMAL) CBC auto differential (12/04/2024 1:05 AM EDT) Only the most recent of2 resultswithin the time period is included. [facility] Signature WBC 6.8 4.8 - 10.8 K/mcL LAB HEMETOLOGY METHOD 12/04/2024 1:31 AM [facility] RBC 4.60 3.80 - 4.80 M/mcL LAB HEMETOLOGY METHOD 12/04/2024 1:31 AM [facility] Hemoglobin 12.8 11.5 - 16.0 g/dL LAB HEMETOLOGY METHOD 12/04/2024 1:31 AM [facility] Hematocrit 40.3 35.0 - 47.0 % LAB HEMETOLOGY METHOD 12/04/2024 1:31 AM [facility] MCV 87.4 79.0 - 98.0 FL LAB HEMETOLOGY METHOD 12/04/2024 1:31 AM [facility] MCH 27.8 27.0 - 32.0 pcg LAB HEMETOLOGY METHOD 12/04/2024 1:31 AM [facility] MCHC 31.8(L) 32.0 - 37.0 g/dL LAB HEMETOLOGY METHOD 12/04/2024 1:31 AM [facility] RDW 13.1 11.0 - 15.0 % LAB HEMETOLOGY METHOD 12/04/2024 1:31 AM [facility] Platelets 283 130 - 400 K/mcL LAB HEMETOLOGY METHOD 12/04/2024 1:31 AM [facility] MPV 11.0 7.0 - 11.0 FL LAB HEMETOLOGY METHOD 12/04/2024 1:31 AM [facility] NRBC 0.0 <1.0 % LAB HEMETOLOGY METHOD 12/04/2024 1:31 AM [facility] NRBC Absolute 0.00 <0.10 K/mcL LAB HEMETOLOGY METHOD 12/04/2024 1:31 AM [facility] Neutrophils Relative 65.1 % LAB HEMETOLOGY METHOD 12/04/2024 1:31 AM [facility] Lymphocytes Relative 22.2 % LAB HEMETOLOGY METHOD 12/04/2024 1:31 AM [facility] Monocytes Relative 5.7 % LAB HEMETOLOGY METHOD 12/04/2024 1:31 AM [facility] Eosinophils Relative 6.3 % LAB HEMETOLOGY METHOD 12/04/2024 1:31 AM [facility] Basophils Relative 0.6 % LAB HEMETOLOGY METHOD 12/04/2024 1:31 AM [facility] Immature Granulocytes Relative 0.1 % LAB HEMETOLOGY METHOD 12/04/2024 1:31 AM [facility] Neutrophils Absolute 4.43 1.50 - 7.00 K/mcL LAB HEMETOLOGY METHOD 12/04/2024 1:31 AM [facility] Lymphocytes Absolute 1.51 1.00 - 5.00 K/mcL LAB HEMETOLOGY METHOD 12/04/2024 1:31 AM [facility] Monocytes Absolute 0.39 0.20 - 1.00 K/mcL LAB HEMETOLOGY METHOD 12/04/2024 1:31 AM [facility] Eosinophils Absolute 0.43 0.00 - 0.50 K/mcL LAB HEMETOLOGY METHOD 12/04/2024 1:31 AM [facility] Basophils Absolute 0.04 0.00 - 0.20 K/mcL LAB HEMETOLOGY METHOD 12/04/2024 1:31 AM [facility] Immature Granulocytes Absolute 0.01 0.00 - 0.03 K/mcL LAB HEMETOLOGY METHOD 12/04/2024 1:31 AM EDT [facility] Blood Venous blood specimen / Unknown Venipuncture / Unknown 12/04/2024 1:05 AM EDT 12/04/2024 1:22 AM EDT Tawanna Weiner MD LAB BLOOD ORDERABLES Final Result Performing Organization Address City/[facility]/ZIP Co de Phone Number [facility] [address] [place] [address], [place] [phone] * hCG Qualitative (12/04/2024 1:05 AM EDT) Only the most recent of2 resultswithin the time period is included. hCG Qual Negative Negative 12/04/2024 3:34 AM EDT [facility] Blood Venous blood specimen / Unknown Venipuncture / Unknown 12/04/2024 1:05 AM EDT 12/04/2024 1:22 AM EDT Colette CASTRO LAB BLOOD ORDERABLES Fin al Result Performing Organization Address [facility] Co de Phone Number [facility] [address] [place] [address], [place] [phone] * Magnesium (12/04/2024 1:05 AM EDT) Only the most recent of2 resultswithin the time period is included. Magnesium 2.2 1.9 - 2.6 mg/dL LAB CHEMISTRY METHOD 12/04/2024 1:49 AM EDT [facility] Blood Venous blood specimen / Unknown Venipuncture / Unknown 12/04/2024 1:05 AM EDT 12/04/2024 1:22 AM EDT Tawanna Weiner MD LAB BLOOD ORDERABLES Final Result Performing Organization Address City/[facility]/ZIP Co de Phone Number [facility] [address] [place] [address], [place] [phone] * (ABNORMAL) Lipase (12/04/2024 1:05 AM EDT) Only the most recent of2 resultswithin the time period is included. Lipase 77(H) 13 - 75 unit/L LAB CHEMISTRY METHOD 12/04/2024 1:52 AM T [facility] Blood Venous blood specimen / Unknown Venipuncture / Unknown 12/04/2024 1:05 AM EDT 12/04/2024 1:22 AM EDT Tawanna Weiner MD LAB BLOOD ORDERABLES Final Result [facility] [address] [place] [address], [place] [phone] * Comprehensive metabolic panel (12/04/2024 1:05 AM EDT) Only the most recent of2 resultswithin the time period is included. Pathologist [facility] [place] Sodium 141 133 - 145 mmol/L LAB CHEMISTRY METHOD 12/04/2024 1:52 AM [facility] Potassium 4.3 3.5 - 5.5 mmol/L LAB CHEMISTRY METHOD 12/04/2024 1:52 AM [facility] Chloride 110 96 - 110 mmol/L LAB CHEMISTRY METHOD 12/04/2024 1:52 AM [facility] CO2 26 21 - 32 mmol/L LAB CHEMISTRY METHOD 12/04/2024 1:52 AM [facility] Anion Gap 5 3 - 11 LAB CHEMISTRY METHOD 12/04/2024 1:52 AM [facility] Glucose 94 70 - 100 mg/dL LAB CHEMISTRY METHOD 12/04/2024 1:52 AM [facility] BUN 12 5 - 25 mg/dL LAB CHEMISTRY METHOD 12/04/2024 1:52 AM [facility] Creatinine 0.60 0.50 - 1.10 mg/dL LAB CHEMISTRY METHOD 12/04/2024 1:52 AM T [facility] eGFR 119 >=60 mL/min/1. 73m2 LAB CHEMISTRY METHOD 12/04/2024 1:52 AM [facility] Comment:Calculation based on the Chronic Kidney Disease Epidemiology Collaboration (CKD-EPI) equation refit without adjustment for race. BUN/Creatinine Ratio 20.0 LAB CHEMISTRY METHOD 12/04/2024 1:52 AM T [facility] Calcium 9.4 8.5 - 10.5 mg/dL LAB CHEMISTRY METHOD 12/04/2024 1:52 AM [facility] AST (SGOT) 30 10 - 42 unit/L LAB CHEMISTRY METHOD 12/04/2024 1:52 AM [facility] ALT (SGPT) 42 10 - 60 unit/L LAB CHEMISTRY METHOD 12/04/2024 1:52 AM [facility] Alkaline Phosphatase 81 42 - 121 unit/L LAB CHEMISTRY METHOD 12/04/2024 1:52 AM [facility] Total Protein 7.1 6.0 - 8.0 g/dL LAB CHEMISTRY METHOD 12/04/2024 1:52 AM [facility] Albumin 3.6 3.2 - 5.0 g/dL LAB CHEMISTRY METHOD 12/04/2024 1:52 AM [facility] Total Bilirubin 0.3 0.0 - 1.4 mg/dL LAB CHEMISTRY METHOD 12/04/2024 1:52 AM [facility] Blood Venous blood specimen / Unknown Venipuncture / Unknown 12/04/2024 1:05 AM EDT 12/04/2024 1:22 AM EDT us Tawanna Weiner MD LAB BLOOD ORDERABLES Final Result [facility] [address] [place] [address], [place] [phone] * ECG 12 lead (12/04/2024 12:54 AM EDT) Only the most recent of2 resultswithin the time period is included. Ventricular Rate ECG 80 BPM GEMUSE Atrial Rate 80 BPM GEMUSE P-R Interval 148 ms GEMUSE QRS Duration 84 ms GEMUSE Q-T Interval 376 ms GEMUSE QTc 433 ms GEMUSE P Wave Hollis 60 degrees GEMUSE R Hollis 65 degrees GEMUSE T Hollis 65 degrees GEMUSE ECG Interpretation Normal sinus rhythm Normal ECG When compared with ECG of 24-NOV-2024 21:53, No significant change was found Confirmed by MD Alexander, [place] ([id number]) on 12/05/2024 8:36:57 AM GEMUSE 12/04/2024 12:5 4 AM EDT 12/05/2024 8:36 AM EDT us Tawanna Weiner MD ECG ORDERABLES Final Resul t GEMUSE * Blood Culture, Peripheral Draw #2 (11/25/2024 1:03 AM EDT) Only the most recent of2 resultswithin the time period is included. Culture, Blood No growth at 5 days 11/30/2024 4:01 AM EDT [facility] Blood Venous blood specimen / Unknown Venipuncture / Unknown 11/25/2024 1:03 AM EDT 11/25/2024 1:43 AM EDT us Arnie CASTRO LAB MICROBIOLOGY - GENERAL ORDERABLES Final Result Performing Organization Address City/[facility]/ZIP Co de Phone Number [facility] [address] [place] [address], [place] [phone] * CT Abdomen Pelvis w Contrast (11/24/2024 10:32 PM EDT) Anatomical Region Laterality Modality Body Computed Tomogra phy 11/24/2024 11:1 5 PM EDT Impressions 11/24/2024 11:15 PM EDT Postcholecystectomy with a large fluid collection in the gallbladder fossa, please see above. This document has been electronically signed by: Jesus Zapata MD on 11/24/2024 23:15:01 Narrative 11/24/2024 11:15 PM EDT INDICATION: Abdominal pain, acute, no prior medical history CT abdomen and pelvis with contrast Comparison: None provided Findings: The lung bases are clear. Hepatomegaly and steatosis. Postcholecystectomy. There is a heterogeneous peripherally enhancing fluid collection in the gallbladder fossa abutting the postcholecystectomy clips measuring 7.3 cm in transverse dimension mildly lobulated inferiorly. Differentials include postoperative seroma, abscess or biloma. No free fluid identified. Correlation clinically is advised with attention on follow-up. No urolithiasis. Large colonic stool burden. No bowel obstruction. Normal appendix. The bones are intact. Procedure Note Jesus Zapata MD - 11/24/2024 INDICATION: Abdominal pain, acute, no prior medical history CT abdomen and pelvis with contrast Comparison: None provided Findings: The lung bases are clear. Hepatomegaly and steatosis. Postcholecystectomy. There is a heterogeneous peripherally enhancingfluid collection in the gallbladder fossa abutting the postcholecystectomyclips measuring 7.3 cm in transverse dimension mildly lobulated inferiorly. Differentials include postoperative seroma, abscess or biloma. No free fluid identified. Correlation clinically is advised with attention on follow-up. No urolithiasis. Large colonic stool burden. No bowel obstruction. Normal appendix. The bones are intact. IMPRESSION: Postcholecystectomy with a large fluid collection in the gallbladder fossa, please see above. This document has been electronically signed by: Jesus Zapata MD on 11/24/2024 23:15:01 us Arnie CASTRO IMG CT PROCEDURES Final Res ult * Pap smear (08/11/2017) 08/11/2017 Narrative HISTORICAL TESTING LAB RESULTING AGENCY - 08/16/2017 9:06 AM EDT [id number] RESULTS OF GEN-PROBE APTIMA COMBO 2 ASSAY CHLAMYDIA: NEGATIVE N. GONORRHOEAE: NEGATIVE CHELSIE FRANKEL M.D., PATHOLOGIST (CASE ELECTRONICALLY SIGNED 08 16 2017) CLINICAL INFORMATION: Z11.3, Z12.4 Z11.3 ENCOUNTER FOR SCREENING FOR INFECTIONS WITH A PREDOMINANTLY SEXUAL MODE OF TRANSMISSION SOURCE: THINPREP PAP FOR CT/GC GROSS DESCRIPTION: THINPREP VIAL RECEIVED. PHYSICIANS MANUEL RUEDA/# /[id number] Manuel Rueda [facility] CYTOLOGY ORDERABLES Final Result HISTORICAL TESTING LAB RESULTING AGENCY from Last 3 Months or Most Recently Relevant to Health Maintenance Insurance MEDICAID - [place] Care Teams Structural Steel Erector Relationship Specialty Start Date End Date Elizabeth Chatterjee MD [address] [address] PCP - General 08/24/23
--- OUTSIDE RECORDS SUMMARY | 2024-12-19 15:00 | XMS_ITS | Encounter Summary ---
Author Organization [employer] Address [address] [place] [address] Care Team Providers Care Wire Mesh Knitter Name Role Phone Elizabeth Reaves MD Primary Care Provide r Elizabeth Chatterjee MD Primary Care Pro vider Niall Magallanes RN Unavailable [phone] [place] Aldana Unavailable Reason for Visit * Reason Onset Date Comments Appointment Request 07/02/2022 Encounter Details Date Type Department Care Team ([facility] st Contact Info) Description 07/02/2022 Telephone [facility]INE [address] [place], [place] [phone] Elizabeth Reaves MD [address] [place], [place] [phone] Appointment Request Social History Tobacco Use Types [...] onlySpeak with PCP. Please contact pt at [phone] documented in this encounter Plan of Treatment Not on file documented as of this encounter Visit Diagnoses Not on filedocumented in this encounter Care Teams Wire Mesh Knitter Relationship Specialty Start Date End Date Elizabeth Reaves MD [address] [place] [phone] PCP - General Family Medicine 10/01/21 07/25/22 Elizabeth Chatterjee MD [address] [place] [phone] PCP - General Internal Medicine 07/26/22 Niall Magallanes, MACY [address] [place] [phone] Registered Nurse Family Medicine 08/29/24 Geneva Aldana 08/29/24 documented as of this encounter
--- OUTSIDE RECORDS SUMMARY | 2024-12-19 15:00 | XMS_ITS | Encounter Summary ---
Author Organization [employer] Address [address] [place] [address] [address] [place] [address] Care Team Providers Care Bootmaker Name Role Phone Elizabeth Chatterjee MD Primary Care Pro vider Niall Magallanes RN Unavailable [phone] [place] Aldana Unavailable Reason for Visit * Reason Comments Med Refill Encounter Details Date Type Department Care Team (Late st Contact Info) Description 10/08/2022 Refill [facility] MEDICINE [address] [place] [address] Elizabeth Chatterjee MD [address] [place], [place] [phone] Social History Tobacco Use Types Packs/Day Years [...] on filedocumented in this encounter Care Teams Bootmaker Relationship Specialty Start Date End Date Elizabeth Chatterjee MD [address] [place], [place] [phone] PCP - General Internal Medicine 07/26/22 Niall Magallanes, RN [address] [place] [address] Registered Nurse Family Medicine 08/29/24 [place] Aldana 08/29/24 documented as of this encounter
--- OUTSIDE RECORDS SUMMARY | 2024-12-19 15:00 | XMS_ITS | Encounter Summary ---
Author Organization [employer] Address [address] [facility] [address] [place] [address] Care Team Providers Care Controlled Atmospheric Furnace Brazer Name Role Phone Elizabeth Chatterjee MD Primary Care Pro vider Niall Magallanes RN Unavailable [phone] [place] Aldana Unavailable Reason for Visit * Reason Onset Date Comments Med Refill 12/19/2023 Encounter Details Date Type Department Care Team ([facility] st Contact Info) Description 12/19/2023 Telephone [facility] MEDICINE [address] [place] [address] Elizabeth Chatterjee MD [address] [place] [address] Med Refill Social History Tobacco Use Types [...] 0.1 % cream To be sent to: [id number]/pharmacy [address] [place] [address] documented in this encounter Plan of Treatment Not on file documented as of this encounter Visit Diagnoses Not on filedocumented in this encounter Care Teams Controlled Atmospheric Furnace Brazer Relationship Specialty Start Date End Date Elizabeth Chatterjee MD [address] [place] [phone] PCP - General Internal Medicine 07/26/22 Niall Magallanes, MACY [address] [place] [phone] Registered Nurse Family Medicine 08/29/24 [place] Aldana 08/29/24 documented as of this encounter
--- OUTSIDE RECORDS SUMMARY | 2024-12-19 15:00 | XMS_ITS | Clinical Summary ---
Author Organization [employer] Address [address] [place] [address] Care Team Providers Care Pharmacy Billing Adjudicator Name Role Phone Elizabeth Chatterjee MD Primary Care Pro vider Niall Magallanes RN Unavailable [phone] [place] Aldana Unavailable Allergies Active Allergy Reactions Criticality Noted Date Comments Cabotegravir Hives 08/19/2023 Bupropion 01/25/2022 Hydrocodone 01/25/2022 Hydrocodone-Acetaminophe n Nausea And Vomiting 03/08/2016 Metronidazole Other 08/19/2023 Olanzapine 01/25/2022 Penicillin G 02/09/2022 Ceftriaxone received before with no problem Medications albuterol (2.5 MG/3ML) 0.083% nebulizer solution inhale 3 milliliter by nebulization route 3 times every day as needed 09/10/19 22 Active LORazepam (Ativan) 1 MG tablet Take 1 tablet by mouth at bed time. 06/14/19 20 Active loratadine (Claritin) 10 MG tabletIndications: Allergy, sequela TAKE 1 TABLET BY MOUTH EVERY MORNING 90 tablet 1 06/14/19 24 Active gabapentin (Neurontin) 300 MG capsuleIndications :Bilateral foot pain Take 1 capsule (300 mg) by mouth if needed in the morning, at noon, and at bedtime (nerve pain). 90 capsule 3 08/18/19 24 Active Nebulizers misc Use QID as needed for asthma treatments at home 1 each 11/10/19 24 Active Mometasone Furoate (Asmanex HFA) 200 MCG/ACT aerosolIndications :Mild persistent asthma without complication Inhale 1 puff 2 times daily. 13 g 11 11/11/19 24 Active sucralfate (Carafate) 1 g tabletIndications: Gastroesophageal reflux disease without esophagitis Take 1 tablet (1 g) by mouth if needed in the morning, at noon, in the evening, and at bedtime (epigastric pain,GERD). TAKE 1 TABLET BY MOUTH FOUR TIMES DAILY TAKE ON AN EMPTY STOMACH BEFORE MEALS AND AT BEDTIME 120 tablet 2 12/27/19 24 Active lidocaine (Lidoderm) 5 % patch Apply 1 patch topically Once per day. Remove & discard patch within 12 hours or as directed by MD. 15 patch 2 01/10/20 24 Active hydrocortisone 2.5 % cream Apply topically if needed for rash (ezcema). 28 g 08/17/19 25 Active albuterol (Ventolin HFA) 108 (90 Base) MCG/ACT inhalerIndications :Moderate persistent asthma with acute exacerbation INHALE 2 PUFFS BY MOUTH EVERY 4 HOURS NEEDED FOR WHEEZING OR SHORTNESS OF BREATH. 18 g 2 08/23/19 25 Active ondansetron ODT (Zofran-ODT) 4 MG disintegrating tablet Take 1 tablet (4 mg) by mouth every 12 (twelve) hours if needed for nausea or vomiting. 20 tablet 1 09/25/19 25 Active famotidine (Pepcid) 20 MG tablet TAKE 1 TABLET (20 MG) BY MOUTH IF NEEDED AT BEDTIME FOR HEARTBURN. 90 tablet 11/13/19 25 Active aspirin-acetaminop hen-caffeine (Excedrin Migraine) 250-250-65 MG tabletIndications: Migraine with aura and without status migrainosus, not intractable Take 1 tablet by mouth every 12 (twelve) hours if needed for headaches. 30 tablet 1 12/19/19 25 025 Active ondansetron (Zofran) 4 MG tabletIndications: Migraine with aura and without status migrainosus, not intractable Take 2 tablets (8 mg) by mouth every 12 (twelve) hours if needed for nausea or vomiting for up to 7 days. 20 tablet 12/19/19 25 025 Active Active Problems Problem Noted Date Diagnosed Date Migraine with aura and witho ut status migrainosus, not intractable 12/18/2024 Assessment & Plan (12/18/2024 3:16 PM EDT): I advise to avoid migraine triggers like red wine, chocolate, cheese, strong perfumes I prescribed for patient excedrin migraine and zofran F/u with PCP UTI symptoms 12/18/2024 Assessment & Plan (12/18/2024 3:17 PM EDT): UA and culture ordered CG ordered BV ordered Patient will be contacted with results Cholelithiasis 05/30/2024 Eczema of both hands 05/30/2024 Acute cough 11/07/2023 Assessment & Plan (11/24/2023 7:21 PM EDT): Poc covid and flu negative Reassuring resp exam x-ray was completed in er and symptoms are improving, continue rescue inhaler and steroids as prescribed Dysmenorrhea 11/07/2023 Assessment & Plan (11/24/2023 7:18 PM EDT): Referral to ob.missile pad mechanic Amenorrhea 10/26/2022 Assessment & Plan (10/26/2022 12:54 PM EDT): -LMP 7/last weeks of -will do STI labs for broken condom and preg test -will call pt w results- otherwise pt will call here in 1 week for result -will discuss then about PREP again and contraception if neg result Anxiety 10/05/2022 History of nephrolithiasis 08/25/2022 Assessment & Plan [...] a call -pt expressed understanding of plan Tobacco abuse 07/14/2022 Assessment & Plan (10/26/2022 [...] -upset when asked about this -offered before fingernail technician referral to clarify but wants to hold x now Assessment & Plan (08/25/2022 7:49 PM EDT): Pt not able to give allergy information -upset when asked about this -offered today fingernail technician referral to clarify but wants to hold x now Assessment & Plan (07/14/2022 1:34 PM EDT): Pt not able to give allergy information -upset when asked about this -will discuss at future visits about possible fingernail technician evaluation to confirm if actual allergy to it Right foot pain 05/31/2022 Assessment & Plan (10/06/2023 6:54 PM EDT): -px terbinafine cream for tinea pedis BID for 2 to 3 weeks -advised pt to keep feet dry and change socks twice a day -pt has upcoming apt w grain operator in 10/27/2023 for her chronic complaints,calluses Assessment & Plan (10/26/2022 12:56 PM EDT): Noted some calluses in feet and plantar warts --referred to grain operator -pd to get a call x apt ( referred back in 07/14/[address] Gallardo # [phone] -on gabapentin TID -referred in [facility] visit for EMG -no report Assessment & Plan (08/25/2022 7:49 PM EDT): Noted some calluses in feet and plantar warts --referred to grain operator -pd to get a call x apt Assessment & Plan (07/14/2022 1:22 PM EDT): Noted some calluses in feet and plantar warts --referred today to grain operator Assessment & Plan (05/31/2022 5:46 PM EDT): r/o plantar spur, get x-ray of right foot and refer to podiatry Pt has residual inflammatory scars most likely from tinea pedis recommened continue using clotrimazole cream and take terbinafine tablets prescribed by forestry fire aid recommended use support plantar pads and to have a 15 minute break in the morning and one in the afternoon Health care maintenance 03/16/2022 Assessment & Plan [...] are not improved with Ibuprofen refer to [facility] for evaluation of IUD Bipolar disorder 01/30/2022 [...] to f w her psychiatrist and therapist Class 2 obesity 01/30/2022 Assessment & Plan (10/26/2022 12:51 PM EDT): Advised pt to improve diet and exercise,discussed healthy life style -discussed dukey rider referral -referred already Assessment & Plan (08/25/2022 7:44 PM EDT): Advised pt to improve diet and exercise,discussed healthy life style -discussed dukey rider referral -referred today Assessment & Plan (07/14/2022 1:22 PM EDT): BMI 36.03 -life style changes advised -will discuss about dukey rider referral at her next apt Gastroesophageal reflux [...] Problem Noted Date Diagnosed Date Resolved Date Skin ulcer of right great to e, limited to breakdown of skin ([facility]) 12/21/2023 05/30/2024 Assessment & Plan (12/21/2023 7:49 PM EDT): Dressing with topical antibiotic done today. Patient to continue daily dressings until she sees podiatry. Referral to podiatry urgent today. She's advised to callback or send a message via [employer] if she doesn't get her appt within 2w. Take Bactrim ds x 7d to cover for MRSA. Order Xray to ro bone compromise. Callus of foot 12/21/2023 05/30/2024 Assessment & Plan (12/21/2023 7:50 PM EDT): Advised to keep feet clean and dry, use hydrocortisone cream daily for up to 14d for areas of eczema Needs evaluation by podiatry. Right ankle pain 11/24/2023 05/30/2024 Assessment & Plan (11/24/2023 7:22 PM EDT): Pt reports turning ankle, reassuring exam but will image as pt reports pain with weight bearing Ankle wrapped, encouraged RICE and activity as tolerated Bacterial vaginosis 11/08/2023 05/31/19 25 Onychomycosis 11/07/2023 05/30/2024 Chronic lower back pain 10/06/2023 04/0 10/2024 Assessment & Plan (10/06/2023 6:55 PM EDT): There is mild tenderness in paraspinal points in lower back w normal ROM and neuro exam -referred today to PT -tylenol prn -warm compresses -will eval at next apt -has apt w me in 3 weeks , if no better would consider imaging if not done recently at recent ED visit Cat bite of lower leg, left, initial [...] pt will call here in 1 week Plantar wart of both feet 08/25/2022 Assessment & Plan (10/26/2022 12:50 PM EDT): Explained to pt that her main problem in feet seems to be associated w plantar warts per notes s/p cryotherapy in the past -on salycilic acid topical -given pt is concern and states not noticing major improvement referred to forestry fire aid -has apt on 11/05/2022 -remind pt of apt Assessment & Plan (08/25/2022 9:50 AM EDT): Explained to pt that her main problem in feet seems to be associated w plantar warts per notes s/p cryotherapy in the past -started salycilic acid topical last month daily use x 4 weeks -given pt is concern and states not noticing major improvement referred today to forestry fire aid Vaginal discharge 07/14/2022 05/30/2024 Assessment & Plan (11/24/2023 7:18 PM EDT): [...] complete if tolerating -scheduled apt w Sigrid Felix. For 07/21/2022 to have eval x chronic symptoms. -will check STIs today Chlamydial infection of lowe r genitourinary tract 01/30/2022 05/30/2024 Gonorrhea 01/30/2022 08/18/2023 Encounters Date Type Department Care Team Description 12/18/2024 2:40 PM EDT Office Visit [facility] [address] [place] [phone] Elizabeth Reaves MD UTI symptoms (Primary Dx); Migraine with aura and without status migrainosus, not intractable 12/18/2024 Travel 11/27/2024 Patient Outreach [address] [phone] Elizabeth Chatterjee MD Care Coordination (C3 CM-W [place] Aldana telephone call outreach) 11/23/[address] [address] Elizabeth Chatterjee MD No Show 11/22/[address] [phone] Elizabeth Chatterjee MD chart prep 11/19/[address] [address] Elizabeth Chatterjee MD Lab Orders 11/16/2024 Patient Outreach [facility] [address] [place], [place] [phone] Elizabeth Chatterjee MD Pre-visit Planning (SDOH was already completed ) 11/15/2024 Patient Outreach [facility] [address], [place] [phone] Elizabeth Chatterjee MD Care Management (C3CM- Initial assessment/enrollment /unable to LVM) 11/14/2024 Patient Outreach [facility] [address] [place] [address] Elizabeth Chatterjee MD Care Coordination (C3 CM-[facility] Geneva Aldana telephone call outreach) 11/10/2024 Refill [facility] [address] [place] [address] Myesha Duran MD 11/05/2024 Telephone [facility] [address] [place] [address] Elizabeth Chatterjee MD ER Follow-up 10/31/[address] [phone] Elizabeth Chatterjee MD ER Follow-up 10/29/2024 Patient Outreach [address] [address] Elizabeth Chatterjee MD Care Coordination (C3 -[facility] [place] Aldana telephone call outreach) 10/02/2024 Patient Outreach [facility] [address] [place] [phone] Milton Robertson [facility] Supports 10/02/2024 Travel 09/28/2024 Patient Outreach [facility] [address] [place] [phone] Elizabeth Chatterjee MD 09/27/2024 Patient Outreach [address] [address] Elizabeth Chatterjee MD Care Management (C3CM- Initial assessment/enrollment ) 09/26/2024 Patient Outreach [facility] [address] [place] [phone] Elizabeth Chatterjee MD Care Coordination (C3 -[facility] [place] Aldana telephone call outreach /) 09/25/[address] [address] Elizabeth Chatterjee MD Appt request 09/24/2024 Refill [facility] [address] [place] [phone] Elizabeth Chatterjee MD 09/24/2024 Telephone [facility] [address] [place] [address] Elizabeth Chatterjee MD Nurse Triage from Last 3 Months Immunizations Immunization Administration Dates Next Due DTP 02/24/1989,1987,1987 DTaP, Unspecified 07/15/1992 HiB, unspecified 02/24/1989 Influenza injectable quadriv alent preservative free 02/01/2020 Influenza, Unspecified 01/13/2005 Influenza, seasonal, injecta ble, preservative free 01/24/2024,11/30/2015 MMR 09/11/1996,05/19/1988 Moderna Covid-19 Vaccine 12+ 04/20/1999 Novel [id number] 12/20/2008 OPV, Trivalent 07/15/1992,1987,1987 Pfizer Covid-19 Vaccine 12+ 08/06/2020,,11/30/2015 Pneumococcal Polysaccharide PPSV23 11/29/2015 Rabies - IM Fibroblast Culture 01/11/2023 Rabies, intramuscular 09/15/2019 Td (adult), unspecified 04/20/1999 Tdap 11/05/2015,09/02/2014 Family History Medical History Relation Name Comments lung ca from smoking Maternal Grandmother breast ca x2 Mother's Sister Relation Name Status Comments Maternal Grandmother Mother's Sister Social History Tobacco Use Types Packs/Day Years [...] the past 12 months, has t he [employer], gas, oil or water company threatened to [...] Mass Index 33.48 12/18/2024 2:35 PM EDT Plan of Treatment Health Maintenance Due Date Last Done Comments Family Planning (PISQ) 2002 HPV Vaccines (1 - 3-dose series) 2002 Hepatitis B Vaccines (1 of 3 - 19+ 3-dose series) 2006 Pneumococcal Vaccine: Pediatrics (0 to 5 Years) and At-Risk Patients (6 to 49) Years (2 of 2 - PCV) 11/28/2016 11/29/2015 COVID-19 Vaccine (5 - season) 2024 08/06/2020, 07/16/2020, 11/30/2015, Additional history exists Influenza Vaccine (#1) 2024 , 02/01/2020, 11/30/2015, Additional history exists Alcohol/Substance Use Screening 05/29/2025 05/29/2024 Depression Screening 05/29/2025 05/29/2024, 05/30/19 25 Disability Screening 05/29/2025 05/29/2024 SDOH Screening 09/12/2025 09/12/2024 DTaP/Tdap/Td Vaccines (7 - Td or Tdap) 11/04/2025 11/05/2015, 09/02/2014, 04/20/1999, Additional history exists Tobacco Screening 12/18/2025 12/18/2024 Cervical Cancer Screening 02/01/2029 HPV/Cotest 02/01/2029 Pap Smear 02/01/2029 02/02/2024, 04/21, 05/09/2020 Zoster Vaccines (1 of 2) 2037 RSV Patients and Patients Aged 60 years or older (1 - 1-dose 75+ series) 2062 HIB Vaccines Completed 02/24/1989 IPV Vaccines Completed 07/15/1992, 07/1987, 1987 HIV Screening Completed 07/25/2024, 03/24, 12/23/2022, Additional history exists Hepatitis C Screening Completed 07/25/2024 , 04/02/2024, 10/26/2022, Additional history exists Hepatitis A Vaccines Aged Out No long [...] Routine 12/18/2024 3:19 PM EDT UTI symptoms CHLAMYDIA/N. GONORRHOEAE RNA, TMA, UROGENITAL Routine 12/18/2024 3:10 PM EDT UTI symptoms BACTERIAL VAGINOSIS PANEL Routine 12/18/2024 3:10 PM EDT UTI symptoms HEPATITIS C AB W/REFL TO HCV RNA, QN, PCR Routine 07/25/2024 10:27 AM EDT Annual physical exam HIV 1/2 ANTIGEN/ANTIBODY, FOURTH GENERATION W/RFL Routine 07/25/2024 10:27 AM EDT Annual physical exam HM PAP/HPV Routine 02/02/2024 2:17 PM EST from Last 3 Months or Most Recently Relevant to Health Maintenance Results * POCT Urinalysis (12/18/2024 3:19 PM [...] Media Lot # [id number] Lot# Expiration Date 63, Urine (Urine, Random) 12/18/2024 3:19 PM EDT Elizabeth Dodson MD POINT OF CARE TEST EN TER/EDIT ORDERABLES Final Result * (ABNORMAL) Bacterial Vaginosis Panel (12/18/2024 3:10 PM EDT) TRICHOMONAS VAGINALIS DETECTION BY PCR NOT DETECTED Not Detect [facility] BACTERIAL VAGINOSIS DETECTION BY PCR POSITIVE(A) Negative [facility] Comment:The BV organism targ ets [...] evaluatedin patients under the age of 14. AC GROUP DETECTION BY PCR NOT DETECTED Not Detect [facility] Ac glab krusei PCR NOT DETECTED Not Detect [facility] Swab Vaginal structure / Unknown 12/18/2024 3:10 PM EDT 12/19/2024 11:33 AM EDT Elizabeth Dodson MD LAB MICROBIOLOGY - NERNE ORDERABLES Final Result [facility] [address] [place] [phone] * Chlamydia/N. Gonorrhoeae RNA, TMA, Vaginal (12/18/2024 3:10 PM EDT) CT PCR NOT DETECTED Not Detect. [facility] Comment:A not detected test result [...] psychologicalconsequences. NG PCR NOT DETECTED Not Detect. [facility] Comment:A not detected test result [...] LAB MICROBIOLOGY - NERAL ORDERABLES Final Result Performing Organization Address [facility] Co de Phone Number [facility] [address] [place] [phone] * Hepatitis C Antibody with Reflex to HCV, RNA, Quantitative, Real-Time PCR (07/25/2024 10:27 AM EDT) Hepatitis C Antibody Nonreactive Nonreactive [facility] Comment:Antibodies to HCV no t detected; does not exclude early acuteHCV infection. Blood Venous blood specimen / Unknown 07/25/2024 10:27 AM EDT 07/25/2024 11:28 AM EDT us Elizabeth Alex MD LAB BLOOD ORDERAB LES Final Result Performing Organization Address [facility] Co de Phone Number [facility] [address] [place] [phone] * HIV-1/2 Antigen and Antibodies, Fourth Generation, with Reflexes (07/25/2024 10:27 AM EDT) HIV AB/AG Nonreactive Nonreactive [facility] Comment:HIV-1 p24 Ag and/or HIV-1/HIV-2 Ab not detected.A test result that is nonreactive does not exclude thepossibility of exposure to or infection with HIV-1 and/orHIV-2. Nonreactive results in this assay for individualswith prior exposure to HIV-1 and/or HIV-2 may be due toantigen and antibody levels that are below the limit ofdetection of this assay.The [employer] HIV Ag/Ab Combo assay result andsupplemental assay results should be interpreted inconjunction with the patient's clinical presentation,history and other laboratory results. If the results areinconsistent with clinical evidence, additional testing issuggested to confirm the result. Blood Venous blood specimen / Unknown 07/25/2024 10:27 AM EDT 07/25/2024 11:28 AM EDT Elizabeth Alex MD LAB BLOOD ORDERAB LES Final Result [facility] [address] [place] [phone] * PAP/HPV (02/02/2024 2:17 PM EST) us Historical Provider HEALTH MAINTENANCE Final Result from Last 3 Months or Most Recently Relevant to Health Maintenance Insurance Care Teams Pharmacy Billing Adjudicator Relationship Specialty Start Date End Date Elizabeth Chatterjee MD [address] [place] [phone] PCP - General Internal Medicine 07/26/22 Niall Magallanes, RN [address] [place] [phone] Registered Nurse Family Medicine 08/29/24 [place] Aldana 08/29/24
--- OUTSIDE RECORDS SUMMARY | 2024-12-19 15:00 | XMS_ITS ---
Author Organization [employer] Address [address] [place] [address] [address]t [place] [address] Care Team Providers Care Wedding Day Coordinator Name Role Phone Elizabeth Chatterjee MD Primary Care Pro vider Niall Magallanes RN Unavailable [phone] [place] Aldana Unavailable CHW Complex Status:Enrolled (Active) Start date:08/29/2024 Enrollment date:10/29/2024 Enrollment reason:ADT Feed Overview ED- Pt went to [facility] ED on 08/28/24. Case Team Name Relationship Phone [place] Aldana(Responsible Staff) [phone] Continued Care and Services Coordination
--- OUTSIDE RECORDS SUMMARY | 2024-12-19 15:00 | XMS_ITS ---
Author Organization [employer] Address [address] [facility] 7t [place] [address] Care Team Providers Care Felt Puller Name Role Phone Elizabeth Chatterjee MD Primary Care Pro vider Niall Magallanes RN Unavailable [phone] [place] Aldana Unavailable CM Complex Status:Outreach In Progress (Enrolling) Start date:08/29/2024 Enrollment reason:ADT Feed Overview ED- Pt went [facility] ED on 08/28/24. Case Team Name Relationship Phone Niall Magallanes RN(Responsible Staff) Registered N nicole [phone] Continued Care and Services Coordination
--- OUTSIDE RECORDS SUMMARY | 2024-12-19 15:00 | XMS_ITS | Encounter Summary ---
Author Organization [employer] Address [address] [place] [address] Care Team Providers Care Electrical Maintenance Technician Name Role Phone Elizabeth Chatterjee MD Primary Care Pro vider Niall Magallanes RN Unavailable [phone] [place] Aldana Unavailable Encounter Details Date Type Department Care Team (Latest Contact Info) Description 12/18/2024 Travel Social History Tobacco Use Types Packs/Day Years [...] documented as of this encounter Care Teams Electrical Maintenance Technician Relationship Specialty Start Date End Date Elizabeth Chatterjee MD [address] [place] [phone] PCP - General Internal Medicine 07/26/22 Niall Magallanes, MACY [address] [place] [phone] Registered Nurse Family Medicine 08/29/24 Geneva Aldana 08/29/24 documented as of this encounter
--- OUTSIDE RECORDS SUMMARY | 2024-12-19 15:00 | XMS_ITS | Encounter Summary ---
Author Organization [facility] Address [address] [place] [address] 7 [place] [address] Care Team Providers Care Change Control Manager Name Role Phone Elizabeth Chatterjee MD Primary Care Pro vider Niall Magallanes RN Unavailable [phone] [place] Aldana Unavailable Reason for Visit * Reason Comments Med Change Request Encounter Details Date Type Department Care Team ([facility] st Contact Info) Description 08/26/2022 Refill [facility] [address] [place] [address] Elizabeth Chatterjee MD [address] [place] [address] Social History Tobacco Use Types Packs/Day Years [...] on filedocumented in this encounter Care Teams Change Control Manager Relationship Specialty Start Date End Date Elizabeth Chatterjee MD [address] [place] [phone] PCP - General Internal Medicine 07/26/22 Niall Magallanes, MACY [address] [place] [phone] Registered Nurse Family Medicine 08/29/24 Geneva Aldana 08/29/24 documented as of this encounter
--- OUTSIDE RECORDS SUMMARY | 2024-12-19 15:00 | XMS_ITS | Encounter Summary ---
Author Organization [employer] Address [address] 7[address] [place] [address] Care Team Providers Care Poultry Process Worker Name Role Phone Elizabeth Reaves MD Primary Care Provide r Elizabeth Chatterjee MD Primary Care Pro vider Niall Magallanes RN Unavailable [phone] [place] Aldana Unavailable Reason for Visit * Reason Comments Med Refill Encounter Details Date Type Department Care Team ([facility] st Contact Info) Description 06/29/2022 Refill [facility] [address] [place], [place] [phone] Marline Johnson MD [address] [place], [place] [phone] Vaginal discharge Social History Tobacco Use Types [...] infective documented in this encounter Care Teams Poultry Process Worker Relationship Specialty Start Date End Date Elizabeth Reaves MD [address] [place] [phone] PCP - General Family Medicine 10/01/21 07/25/22 Elizabeth Chatterjee MD [address] [place] [phone] PCP - General Internal Medicine 07/26/22 Niall Magallanes RN [address] [place] [phone] Registered Nurse Family Medicine 08/29/24 Geneva Aldana 08/29/24 documented as of this encounter
--- OUTSIDE RECORDS SUMMARY | 2024-12-19 15:00 | XMS_ITS | Encounter Summary ---
Author Organization [facility] Address [address] [place] [address] 7[address] [place] [address] Care Team Providers Care Top Hat Body Maker Name Role Phone Elizabeth Chatterjee MD Primary Care Pro vider Niall Magallanes RN Unavailable [phone] [place] Aldana Unavailable Reason for Visit * Reason Onset Date Comments Medication Question 09/16/2022 Encounter Details Date Type Department Care Team ([facility] st Contact Info) Description 09/16/2022 Telephone [facility] MEDICINE [address] [place] [address] Elizabeth Chatterjee MD [address] [place] [address] Medication Question Social History Tobacco Use Types [...] Miscellaneous Notes * Telephone Encounter - Cande Ash - 09/16/2022 10:39 AM EDT Tc from pt requesting to specifically speak with PCP in regards to medication questions and issues with her foot. Seems overwhelmed about speaking with too many nurses and providers but not getting any answers. Please contact pt at [phone] documented in this encounter Plan of Treatment Not on file documented as of this encounter Visit Diagnoses Not on filedocumented in this encounter Care Teams Top Hat Body Maker Relationship Specialty Start Date End Date Elizabeth Chatterjee MD [address] [place] [phone] PCP - General Internal Medicine 07/26/22 Niall Magallanes, RN [address] [place] [phone] Registered Nurse Family Medicine 08/29/24 [place] Aldana 08/29/24 documented as of this encounter
--- OUTSIDE RECORDS SUMMARY | 2024-12-19 15:00 | XMS_ITS | Encounter Summary ---
Author Organization [employer] Address [address] [place] [address] 7 [place] [address] Care Team Providers Care Kier Tender Name Role Phone Elizabeth Chatterjee MD Primary Care Pro vider Niall Magallanes RN Unavailable [phone] [place] Aldana Unavailable Reason for Visit * Reason Onset Date Comments Referral 08/31/2023 Encounter Details Date Type Department Care Team ([facility] Contact Info) Description 08/31/2023 Telephone [facility] MEDICINE [address] [place], [place] [phone] Elizabeth Chatterjee MD [address] [place], [place] [phone] Referral Social History Tobacco Use Types Packs/Day [...] 09/01/2023 1:29 PM EDT TC placed to [facility] to inquire if pt could be seen as soon as possible for current callusesand sores on the bottom of the feet. Pt was referred back in 07/2023 and offered an appt but pt refused. According to [place] the pt did not want to be seen due to an incident that happened in the office a few year ago. They will, however, still see the pt if she wants to keep an appt scheduling for October of this year. RN called pt back and advised calling [facility] and scheduling as this is the [...] on filedocumented in this encounter Care Teams Kier Tender Relationship Specialty Start Date End Date Elizabeth Chatterjee MD [address] [place] [phone] PCP - General Internal Medicine 07/26/22 Niall Magallanes, MACY [address] [place] [phone] Registered Nurse Family Medicine 08/29/24 [place] Aldana 08/29/24 documented as of this encounter
--- OUTSIDE RECORDS SUMMARY | 2024-12-19 15:00 | XMS_ITS | Encounter Summary ---
Author Organization [employer] Address [address] [place] [address] 7 [place] [address] Care Team Providers Care Sample Prep Technician Name Role Phone Elizabeth Chatterjee MD Primary Care Pro vider Niall Magallanes RN Unavailable [phone] [place] Aldana Unavailable Reason for Visit * Reason Onset Date Comments Referral 11/23/2023 Encounter Details Date Type Department Care Team ([facility] Contact Info) Description 11/23/2023 Telephone [facility] MEDICINE [address] [place], [place] [phone] Elizabeth Chatterjee MD [address] [place], [place] [phone] Referral Social History Tobacco Use Types Packs/Day [...] Miscellaneous Notes * Telephone Encounter - Kate Milner RN - 11/23/2023 1:13 PM EDT Returned call to Debora at [facility] who stated that referral must be written within 30 days of first appt. Will forward to administrative services specialist to resend referral with recent date. * Telephone Encounter - Nir Campos - 11/23/2023 10:39 AM EDT Tc from [facility] stating they received referral for physical therapy but they're requesting a newone to be sent with more recent start date for them to have more time to schedule pt in. If any questions you can contact Debora at [phone] ext [phone]. documented in this encounter Plan of Treatment Not on file documented as of this encounter Visit Diagnoses Not on filedocumented in this encounter Care Teams Sample Prep Technician Relationship Specialty Start Date End Date Elizabeth Chatterjee MD [address] [place] [phone] PCP - General Internal Medicine 07/26/22 Niall Magallanes, MACY [address] [place] [phone] Registered Nurse Family Medicine 08/29/24 [place] Aldana 08/29/24 documented as of this encounter
== END 2024-12-18 11:33 | disposition home or self-care (01) ==
LOC: HO.HHCLNP 11:32
PROVIDERS: Visit Provider Internal Medicine
DX: Z20.2 Contact with and (suspected) exposure to infections with a predominantly sexual mode of transmission (principal); R39.9 Unspecified symptoms and signs involving the genitourinary system
CPT/HCPCS: 81515; 87086; 87491; 87591

== ENCOUNTER 2025-02-06 11:57 | Outpatient (REF) | payer MEDICAID, SELFPAY ==
--- OUTSIDE RECORDS SUMMARY | 2025-02-06 10:30 | XMS_ITS | Encounter Summary ---
Author Organization [employer] Address [address] [place] [address] Care Team Providers Care Ccna Name Role Phone Elizabeth Chatterjee MD Primary Care Pro vider Niall Magallanes RN Unavailable [phone] Billy Ash Unavailable Encounter Details Date Type Department Care Team (Latest Contact Info) Description 02/06/2025 10:30 AM EST Office Visit [facility] MEDICINE [address] [place] [address] Rasheeda hSannon FNP [address] [place] [address] Transaminitis (Primary Dx); UTI symptoms; Irregular menses; At risk for sexually transmitted disease due to unprotected sex Social History Tobacco Use Types Packs/Day Years Used Date Smoking Tobacco: Former Cigarettes Passive Smoke Exposure: Never Smokeless Tobacco: Never Tobacco Cessation:Counseling Given: Not Answered Comments:Smokes nicotine/weed together since teenager ,years off , can [...] Sign Reading Time Taken Comments Blood Pressure 108/62 02/06/2025 11:00 AM EST Pulse 80 02/06/2025 11:00 AM EST Temperature 36.4 C (97.6 F) 02/06/2025 11:00 AM EST Respiratory Rate 20 02/06/2025 11:00 AM EST Oxygen Saturation - - Inhaled Oxygen Concentration - - Weight 88.5 kg (195 lb) 02/06/2025 11:00 AM EST Height 163.2 cm (5' 4.25 ) 02/06/2025 11:[address] Body Mass Index 33.21 02/06/2025 11:00 AM EST documented in this encounter Plan of Treatment Upcoming Encounters Date Type Department Care Team (Late st Contact Info) Description 02/27/2025 11:15 AM EST Office Visit [facility] MEDICINE [address] [place] [phone] Elizabeth Chatterjee MD [address] [place], [place] [phone] Scheduled Orders Name Type Priority Associated Diagnoses Orde r Schedule Hepatic Function Panel Lab Routine Transaminitis Expected: 02/06/2025 (Approximate), Expires: 02/06/2026 Hepatitis A,B,C Profile Lab Routine Transaminitis Expected: 02/06/2025, Expires: 02/06/2026 Gamma Glutamyl Transferase (GGT) Lab Routine Transaminitis Expected: 02/06/2025 (Approximate), Expires: 02/06/2026 hCG, Total, Quantitative Lab Routine Irregular menses Expected: 02/06/2025 (Approximate), Expires: 02/06/2026 RPR (Monitor) with Reflex to Titer Lab Routine Irregular menses Expected: 02/06/2025 (Approximate), Expires: 02/06/2026 HIV-1/2 Antigen and Antibodies, Fourth Generation, with Reflexes Lab Routine Irregular menses Expected: 02/06/2025 (Approximate), Expires: 02/06/2026 Trichomonas, Urine Lab Routine At risk for sexually transmitted disease due to unprotected sex Ordered: 02/06/2025 documented as of this encounter Procedures Procedure Name Priority Date/Time Associated Diagnosis Comments CHLAMYDIA/TRICHOMON /NEISSERIA GONORRHOEAE, PCR, URINE Routine 02/06/2025 1:10 PM EST At risk for sexually transmitted disease due to unprotected sex URINALYSIS, COMPLETE, WITH REFLEX TO CULTURE Routine 02/06/2025 1:10 PM EST UTI symptoms POCT URINALYSIS DIPSTICK Routine 02/06/2025 11:14 AM EST UTI symptoms POCT , URINE Routine 02/06/2025 11:13 AM EST Irregular menses documented in this encounter Results * Chlamydia/N. Gonorrhoeae, PCR, Urine (02/06/2025 1:10 PM EST) CT PCR, Urine NOT DETECTED Not Detect. [facility] Comment:A not detected test result does not exclude the possibilityof infection because test results can be affected byimproper specimen collection, concurrent antibiotic therapy,or the number of organisms in the specimen which may bebelow the sensitivity of the test. As with many diagnostictests, results from the Xpert CT/NG assay should beinterpreted in conjunction with other laboratory andclinical data available to the clinician.The Xpert CT/NG assay should not be used for the evaluationof suspected sexual abuse or for other medico-legalindications. Additional testing is recommended in anycircumstance when false positive or false negative resultscould lead to adverse medical, social or psychologicalconsequences. NG PCR, Urine NOT DETECTED Not Detect. [facility] Comment:A not detected test result does not exclude the possibilityof infection because test results can be affected byimproper specimen collection, concurrent antibiotic therapy,or the number of organisms in the specimen which may bebelow the sensitivity of the test. As with many diagnostictests, results from the Xpert CT/NG assay should beinterpreted in conjunction with other laboratory andclinical data available to the clinician.The Xpert CT/NG assay should not be used for the evaluationof suspected sexual abuse or for other medico-legalindications. Additional testing is recommended in anycircumstance when false positive or false negative resultscould lead to adverse medical, social or psychologicalconsequences. Urine (Urine, Random) 02/06/2025 1:10 PM EST 02/06/2025 2:00 PM EST Rasheeda Shannon [facility] URINE ORDERABLES Final Res ult [facility] [address] [place] [phone] * Urinalysis, Complete, with Reflex to Culture (02/06/2025 1:10 PM EST) Color Urine Yellow [facility] Appearance Urine Cloudy [facility] PH 7.5 5.0 - 9.0 [facility] Glucose Urine UA Negative Negative mg/dL [facility] Urine Blood Negative Negative [facility] Specific [place] - Urine 1.025 1.005 - 1.025 [facility] Urine Protein Negative Neg-Trace mg/dL [facility] Urine Ketones Negative Negative mg/dL [facility] Nitrite Urine Negative Negative [facility] Leukocyte Esterase Urine Negative Negative [facility] RBC Urine 0-2 0 - 2 /HPF [facility] Urine WBC 0-5 0 - 5 /HPF [facility] Urine Squamous Epithelial Cell 0-2 0 - 2 /HPF [facility] Urine Bacteria 1+ None Seen [facility] Hyaline Casts, Urine 0-2 0 - 2 /LPF [facility] Urine 02/06/2025 1:10 PM EST 02/06/2025 2:00 PM EST Narrative [facility] - 02/06/2025 2:42 PM EST Urine, Clean Catch us Rasheeda [facility]DON[facility] LAB URINE ORDERABLES Final Res ult [facility] [address] [place] [phone] * (ABNORMAL) POCT Urinalysis (02/06/2025 11:14 AM EST) Color, UA Yellow Comment:Dark Clarity, UA Turbid Glucose, UA Negative Bilirubin, UA Negative Ketones, UA Negative Spec Grav, UA 1.020 Blood, UA Negative Negative, None Detected pH, UA 7.0 Protein, UA Many Comment:30 mg/dL Urobilinogen, UA 0.2 Leukocytes, UA Moderate(A) Negative, Rare, Trace, 1+ (17), 2+ (35), 3+ (70), Trace (15) Nitrite, UA Negative Negative, None Detected Appearance, UA turby QC Media Lot # [id number] Lot# Expiration Date ,026 Urine (Urine, Random) 02/06/2025 11:14 AM EST us Rasheeda MALDONADOP POINT OF CARE TEST ENTER/EDIT ORDERABLES Final Result * POCT Urine (02/06/2025 11:13 AM EST) Preg Test, Ur Negative Negative, Indeterminate, None Detected, Trace, 3+, Specimen unsatisfactory for evaluation, Weakly Positive, 1+, 2+ QC Media Lot # [id number] Lot# Expiration Date [id number] Urine 02/06/2025 11:1 3 AM EST Rasheeda Shannon EDUCATION ADMINISTRATOR POINT OF CARE TEST ENTER/EDIT ORDERABLES Final Result documented in this encounter Visit Diagnoses Diagnosis Transaminitis- Primary Nonspecific elevation of levels of transaminase or lactic acid dehydrogenase (LDH) UTI symptoms Irregular menses Irregular menstrual cycle At risk for sexually transmitted disease due to unprotected sex documented in this encounter Additional Health Concerns Assessment Noted Time PHQ-9 Depression Total Score: 1 05/30/19 10:43 AM EDT documented as of this encounter Care Teams Ccna Relationship Specialty Start Date End Date Elizabeth Chatterjee MD [address] [place] [phone] PCP - General Internal Medicine 07/26/22 Niall Magallanes, MACY [address] [place] [phone] Registered Nurse Family Medicine 12/25/24 Billy Ash 12/25/24 documented as of this encounter
[2025-02-06 14:32] LABS: Appearance Urine Cloudy; Glucose Urine UA Negative (Negative); PH 7.5 (5.0-9.0); Specific Gravity - Urine 1.025 (1.005-1.025)
[2025-02-06 15:39] LABS: CT PCR Urine NOT DETECTED (Not Detect.); NG PCR Urine NOT DETECTED (Not Detect.)
--- OUTSIDE RECORDS SUMMARY | 2025-02-06 15:50 | XMS_ITS | Clinical Summary ---
Author Organization [employer] Address [address] [place] [address] Care Team Providers Care Administrative Sales Assistant Name Role Phone Elizabeth Chatterjee MD Primary Care Pro vider Niall Magallanes RN Unavailable [phone] Billy Ash Unavailable Allergies Active Allergy Reactions Criticality Noted [...] 30 tablet 1 12/19/19 25 025 Active Problems Problem Noted Date Diagnosed Date [...] Plan (11/24/2023 7:18 PM EDT): Referral to ob.photography professor Amenorrhea 10/26/2022 Assessment & Plan (10/26/2022 12:54 [...] -upset when asked about this -offered before electrical checkout mechanic referral to clarify but wants to hold x now Assessment & Plan (08/25/2022 7:49 PM EDT): Pt not able to give allergy information -upset when asked about this -offered today electrical checkout mechanic referral to clarify but wants to hold x now Assessment & Plan (07/14/2022 1:34 PM EDT): Pt not able to give allergy information -upset when asked about this -will discuss at future visits about possible electrical checkout mechanic evaluation to confirm if actual allergy to it Right foot pain 05/31/2022 Assessment & Plan (10/06/2023 6:54 PM EDT): -px terbinafine cream for tinea pedis BID for 2 to 3 weeks -advised pt to keep feet dry and change socks twice a day -pt has upcoming apt w mold laminator in 10/27/2023 for her chronic complaints,calluses Assessment & Plan (10/26/2022 12:56 PM EDT): Noted some calluses in feet and plantar warts --referred to mold laminator -pd to get a call x apt ( referred back in 07/14/[address] Gallardo # [phone] -on gabapentin TID -referred in [facility] visit for EMG -no report Assessment & Plan (08/25/2022 7:49 PM EDT): Noted some calluses in feet and plantar warts --referred to mold laminator -pd to get a call x apt Assessment & Plan (07/14/2022 1:22 PM EDT): Noted some calluses in feet and plantar warts --referred today to mold laminator Assessment & Plan (05/31/2022 5:46 PM EDT): r/o plantar spur, get x-ray of right foot and refer to podiatry Pt has residual inflammatory scars most likely from tinea pedis recommened continue using clotrimazole cream and take terbinafine tablets prescribed by sales training manager recommended use support plantar pads and to [...] -will offer at next visit, s/p tdap 2000, s/p p23 2015 ,will discuss about HPV [...] are not improved with Ibuprofen refer to [employer] for evaluation of IUD Bipolar disorder 01/30/2022 [...] diet and exercise,discussed healthy life style -discussed english language learner teacher referral -referred already Assessment & Plan (08/25/2022 7:44 PM EDT): Advised pt to improve diet and exercise,discussed healthy life style -discussed english language learner teacher referral -referred today Assessment & Plan (07/14/2022 1:22 PM EDT): BMI 36.03 -life style changes advised -will discuss about english language learner teacher referral at her next apt Gastroesophageal reflux [...] to e, limited to breakdown of skin ([facility]) 12/21/2023 05/30/2024 Assessment & Plan (12/21/2023 7:49 PM EDT): Dressing with topical antibiotic done today. Patient to continue daily dressings until she sees podiatry. Referral to podiatry urgent today. She's advised to callback or send a message via [employer] if she doesn't get her appt within [...] states not noticing major improvement referred to sales training manager -has apt on 11/05/2022 -remind pt of apt Assessment & Plan (08/25/2022 9:50 AM EDT): Explained to pt that her main problem in feet seems to be associated w plantar warts per notes s/p cryotherapy in the past -started salycilic acid topical last month daily use x 4 weeks -given pt is concern and states not noticing major improvement referred today to sales training manager Vaginal discharge 07/14/2022 05/30/2024 Assessment & Plan [...] Encounters Date Type Department Care Team Description 02/06/2025 10:30 AM EST Office Visit [address] [address] Rasheeda Shannon, WILLIE Transaminitis (Primary Dx); UTI symptoms; Irregular menses; At risk for sexually transmitted disease due to unprotected sex 02/06/2025 Travel 02/05/[address] [address] Nelli Blake RN ER Follow-up 01/15/2025 Patient Outreach [address] [address] Elizabeth Chatterjee MD Care Coordination ([facility] Billy Ash, outreach #[id number] ) 01/09/2025 Patient Outreach [address] [address] Elizabeth Chatterjee MD Care Coordination ([facility] Billy Ash, initial outreach_lvm) 01/09/2025 Patient Outreach [address] [address] Elizabeth Chatterjee MD Care Coordination ([facility] Billy Ash, Chart review ) 12/25/2024 Patient Outreach [facility] [address] [place] [address] [phone] Elizabeth Chatterjee MD Care Coordination ([facility]- chart review) 12/25/2024 Patient Outreach [address] [address] Elizabeth Chatterjee MD 12/21/2024 Patient Outreach [address] [address] Elizabeth Chatterjee MD Care Coordination ([facility] Geneva Aldana telephone call outreach/ ) 12/19/2024 Results Follow-Up [address] [address] Elizabeth Reaves MD Bacterial Vaginosis Panel, Chlamydia/N. Gonorrhoeae RNA, TMA, Vaginal, POCT Urinalysis 12/19/2024 Orders Only [address] [address] Elizabeth Reaves MD Bacterial vaginosis (Primary Dx) 12/18/2024 2:40 PM EDT Office Visit [facility] [address] [place] [phone] Elizabeth Reaves MD UTI symptoms (Primary Dx); Migraine with aura and without status migrainosus, not intractable 12/18/2024 Travel 11/27/2024 Patient Outreach [address] [phone] Elizabeth Chatterjee MD Care Coordination ([facility] [place] Aldana telephone call outreach) 11/23/[address] [address] Elizabeth Chatterjee MD No Show 11/22/[address] [address] Elizabeth Chatterjee MD chart prep 11/19/[address] [address] Elizabeth Chatterjee MD Lab Orders 11/16/2024 Patient Outreach [facility] [address] [place] [address] [phone] Elizabeth Chatterjee MD Pre-visit Planning (SDOH was already completed ) 11/15/2024 Patient Outreach [facility] [address] [place] [address] [phone] Elizabeth Chatterjee MD Care Management ([facility]- Initial assessment/enrollment /unable to LVM) 11/14/2024 Patient Outreach [address] [address] Elizabeth Chatterjee MD Care Coordination ([facility] [place] Aldana telephone call outreach) 11/10/2024 Refill [facility] [address] [place] [address] Myesha Duran MD from Last 3 Months Immunizations Immunization Administration Dates Next Due DTP 02/24/1989,1987,1987 DTaP, Unspecified 07/15/1992 HiB, unspecified 02/24/1989 Influenza injectable quadriv alent preservative free 02/01/2020 Influenza, Unspecified 01/13/2005 Influenza, seasonal, injecta ble, preservative free 01/24/2024,11/30/2015 MMR 09/11/1996,05/19/1988 Moderna Covid-19 Vaccine 12+ 04/20/1999 Novel [id number] 12/20/2008 OPV, Trivalent 07/15/1992,1987,1987 Pfizer Covid-19 Vaccine [...] your housing situation today? I have mayuri avi 05/18/[address] you li [...] 20 02/06/2025 11:00 AM EST Oxygen Saturation 98% 12/18/2024 2:35 PM EDT Inhaled Oxygen Concentration - - Weight 88.5 kg (195 lb) 02/06/2025 11:00 AM EST Height 163.2 cm (5' 4.25 ) 02/06/2025 11:[address] Body Mass Index 33.21 02/06/2025 11:00 AM EST Plan of Treatment Upcoming Encounters Date Type Department Care Team (Late st Contact Info) Description 02/27/2025 11:15 AM EST Office Visit [facility] [address] [place] [phone] Elizabeth Chatterjee MD [address] [place] [phone] Health Maintenance Due Date Last Done Comments Family Planning (PISQ) 2002 HPV Vaccines (1 - 3-dose series) 2002 Hepatitis B Vaccines (1 of 3 - 19+ 3-dose series) 2006 Pneumococcal Vaccine: Pediatrics (0 to 5 Years) and At-Risk Patients (6 to 49) Years (2 of 2 - PCV) 11/28/2016 11/29/2015 Alcohol/Substance Use Screening 05/29/2025 05/29/2024 Depression Screening 05/29/2025 05/29/2024, 05/30/19 25 Disability Screening 05/29/2025 05/29/2024 Influenza Vaccine (#1) 2025 , 02/01/2020, 11/30/2015, Additional history exists Postponed from 10/22/2024 (Patient Refused) SDOH Screening 09/12/2025 09/12/2024 DTaP/Tdap/Td Vaccines (7 - Td or Tdap) 11/04/2025 11/05/2015, 09/02/2014, 04/20/1999, Additional history exists COVID-19 Vaccine ( season) 2026 08/06/2020, 07/16/2020, 11/30/2015, Additional history exists Postponed from 10/22/2024 (Patient Refused) Tobacco Screening 02/06/2026 02/06/2025 Cervical Cancer Screening 02/01/2029 HPV/Cotest 02/01/2029 Pap Smear 02/01/2029 02/02/2024, 04/21, 05/09/2020 Lipid Panel 07/25/2029 07/25/2024, 07/14/2022 Zoster Vaccines (1 of 2) 2037 RSV Patients and Patients Aged 60 years or older (1 - 1-dose 75+ series) 2062 HIB Vaccines Completed 02/24/1989 IPV Vaccines Completed 07/15/1992, 04/0 07/1987, 1987 HIV Screening Completed 07/25/2024, 03/24, [...] Procedure Name Priority Date/Time Associated Diagnosis Comments CHLAMYDIA/TRICHOMONA S/NEISSERIA GONORRHOEAE, PCR, URINE Routine 02/06/2025 1:10 PM EST At risk for sexually transmitted disease due to unprotected sex URINALYSIS, COMPLETE, WITH REFLEX TO CULTURE Routine 02/06/2025 1:10 PM EST UTI symptoms POCT URINALYSIS DIPSTICK Routine 02/06/2025 11:14 AM EST UTI symptoms POCT , URINE Routine 02/06/2025 11:13 AM EST Irregular menses POCT URINALYSIS DIPSTICK Routine 12/18/2024 3:19 PM EDT UTI symptoms CULTURE, URINE, ROUTINE Routine 12/18/2024 3:10 PM EDT UTI symptoms CHLAMYDIA/N. GONORRHOEAE RNA, TMA, UROGENITAL Routine 12/18/2024 3:10 PM EDT UTI symptoms BACTERIAL VAGINOSIS PANEL Routine 12/18/2024 3:10 PM EDT UTI symptoms HEPATITIS C AB W/REFL TO HCV RNA, QN, PCR Routine 07/25/2024 10:27 AM EDT Annual physical exam HIV 1/2 ANTIGEN/ANTIBODY, FOURTH GENERATION W/RFL Routine 07/25/2024 10:27 AM EDT Annual physical exam LIPID PANEL, STANDARD Routine 07/25/2024 10:27 AM EDT Annual physical exam HM PAP/HPV Routine 02/02/2024 2:17 PM EST from Last 3 Months or Most Recently Relevant to Health Maintenance Results * Chlamydia/N. Gonorrhoeae, PCR, Urine (02/06/2025 1:10 PM EST) CT PCR, Urine NOT DETECTED Not Detect. [facility] Comment:A not detected test result does [...] NG PCR, Urine NOT DETECTED Not Detect. [facility] Comment:A not detected test result does [...] EST 02/06/2025 2:00 PM EST Rasheeda Shannon [facility] URINE ORDERABLES Final Res ult Performing Organization Address [facility] Co de Phone Number [facility] [address] [place] [address] [phone] * Urinalysis, Complete, with Reflex to Culture (02/06/2025 1:10 PM EST) Color Urine Yellow [facility] Appearance Urine Cloudy [facility] PH 7.5 5.0 - 9.0 [facility] Glucose Urine UA Negative Negative mg/dL [facility] Urine Blood Negative Negative [facility] Specific [place] - Urine 1.025 1.005 - 1.025 [facility] Urine Protein Negative Neg-Trace mg/dL [facility] Urine Ketones Negative Negative mg/dL [facility] Nitrite Urine Negative Negative [facility] Leukocyte Esterase Urine Negative Negative [facility] RBC Urine 0-2 0 - 2 /HPF [facility] Urine WBC 0-5 0 - 5 /HPF [facility] Urine Squamous Epithelial Cell 0-2 0 - 2 /HPF [facility] Urine Bacteria 1+ None Seen [facility] Hyaline Casts, Urine 0-2 0 - 2 /LPF [facility] Urine 02/06/2025 1:10 PM EST 02/06/2025 2:00 PM EST Narrative [facility] - 02/06/2025 2:42 PM EST Urine, Clean Catch Rasheeda Shannon [facility] URINE ORDERABLES Final Res ult Performing Organization Address [facility] Co de Phone Number [facility] [address] [place] [address] [phone] * (ABNORMAL) POCT Urinalysis (02/06/2025 11:14 AM EST) Only the most recent of2 resultswithin the time period is included. Color, UA Yellow Comment:Dark Clarity, UA Turbid [...] Media Lot # [id number] Lot# Expiration Date , Urine (Urine, Random) 02/06/2025 11:14 AM EST [employer] POINT OF CARE TEST ENTER/EDIT ORDERABLES Final Result * POCT Urine (02/06/2025 11:13 AM EST) Preg Test, Ur Negative Negative, Indeterminate, None Detected, Trace, 3+, Specimen unsatisfactory for evaluation, Weakly Positive, 1+, 2+ QC Media Lot # [id number] Lot# Expiration Date , Urine 02/06/2025 11:1 3 AM EST [employer] POINT OF CARE TEST ENTER/EDIT ORDERABLES Final Result * (ABNORMAL) Bacterial Vaginosis Panel (12/18/2024 3:10 PM EDT) TRICHOMONAS VAGINALIS DETECTION BY PCR NOT DETECTED Not Detect [facility] BACTERIAL VAGINOSIS DETECTION BY PCR POSITIVE(A) Negative [facility] Comment:The BV organism targ ets of [...] DETECTION BY PCR NOT DETECTED Not Detect [facility] Ac glab krusei PCR NOT DETECTED Not Detect [facility] Swab Vaginal structure / Unknown 12/18/2024 3:10 PM EDT 12/19/2024 11:33 AM EDT Elizabeth Dodson MD LAB MICROBIOLOGY - NERAL ORDERABLES Final Result [facility] [address] [place] [address] [phone] * Chlamydia/N. Gonorrhoeae RNA, TMA, Vaginal (12/18/2024 3:10 PM EDT) CT PCR NOT DETECTED Not Detect. [facility] Comment:A not detected test result does [...] psychologicalconsequences. NG PCR NOT DETECTED Not Detect. [facility] Comment:A not detected test result does [...] us Elizabeth Dodson MD LAB MICROBIOLOGY - GE NERAL ORDERABLES Final Result Performing Organization Address [facility] Co de Phone Number [facility] [address] [place] [phone] * Culture, Urine, Routine (12/18/2024 3:10 PM EDT) Urine Urine specimen obtained by clean catch procedure / Unknown 12/18/2024 3:10 PM EDT 12/19/2024 11:33 AM EDT Comment:UACC Narrative [facility] - 12/20/2024 10:59 AM EDT Urine Culture No growth. Specimen Source: Urine clean catch us Elizabeth Dodson MD LAB MICROBIOLOGY - GE NERAL ORDERABLES Final Result Performing Organization Address [facility] Co de Phone Number [facility] [address] [place] [phone] * Hepatitis C Antibody with Reflex to HCV, RNA, Quantitative, Real-Time PCR (07/25/2024 10:27 AM EDT) Pathologist [facility] Hepatitis C Antibody Nonreactive Nonreactive [facility] Comment:Antibodies to HCV no t detected; does not exclude early acuteHCV infection. Blood Venous blood specimen / Unknown 07/25/2024 10:27 AM EDT 07/25/2024 11:28 AM EDT us Elizabeth Alex MD LAB BLOOD ORDERAB LES Final Result Performing Organization Address [facility] Co de Phone Number [facility] [address] [place] [phone] * HIV-1/2 Antigen and Antibodies, Fourth Generation, with Reflexes (07/25/2024 10:27 AM EDT) HIV AB/AG Nonreactive Nonreactive [facility] Comment:HIV-1 p24 Ag and/or HIV-1/HIV-2 Ab not detected.A test result that is nonreactive does not exclude thepossibility of exposure to or infection with HIV-1 and/orHIV-2. Nonreactive results in this assay for individualswith prior exposure to HIV-1 and/or HIV-2 may be due toantigen and antibody levels that are below the limit ofdetection of this assay.The Quigo HIV Ag/Ab Combo assay result andsupplemental assay results should be interpreted inconjunction with the patient's clinical presentation,history and other laboratory results. If the results areinconsistent with clinical evidence, additional testing issuggested to confirm the result. Blood Venous blood specimen / Unknown 07/25/2024 10:27 AM EDT 07/25/2024 11:28 AM EDT Elizabeth Alex MD LAB BLOOD ORDERAB LES Final Result [facility] [address] [place] [address] [phone] * (ABNORMAL) Lipid Panel, Standard (07/25/2024 10:27 AM EDT) Pathologist [facility] Triglycerides 52 <150 mg/dL [facility] Comment:Desirable Triglyceri de: less than 150 mg/dLBorderline High Triglyceride 150-199 mg/dLHigh Triglyceride: 200-499 mg/dLVery High Triglyceride: greater than or equal to 5OO mg/dL Cholesterol 170 <200 mg/dL [facility] Comment:Desirable Cholestero l: less than 200 mg/dLBorderline High Cholesterol: 200-239 mg/dLHigh Cholesterol: greater than 239 mg/dL LDL Cholesterol Calculated 116(H) <100 mg/dL [facility] Comment:Desirable LDL: less than 100 mg/dLNear Optimal/Above Optimal LDL: 110- 129 mg/dLBorderline High LDL: 130-159 mg/dLHigh LDL: 160-189 mg/dLVery High LDL: greater than or equal to 190 mg/dL HDL Cholesterol 44 >40 mg/dL [facility] Comment:Desirable HDL: great er than 40 mg/dL Note: This HDL assay may give artificially low results in patients with liver disease. Blood Venous blood specimen / Unknown 07/25/2024 10:27 AM EDT 07/25/2024 11:28 AM EDT us Elizabeth Alex MD LAB BLOOD ORDERAB LES Final Result [facility] [address] [place] [address] [phone] * PAP/HPV (02/02/2024 2:17 PM EST) us Historical Provider HEALTH MAINTENANCE Final Result from Last 3 Months or Most Recently Relevant to Health Maintenance Insurance [place] [id number] Care Teams Administrative Sales Assistant Relationship Specialty Start Date End Date Elizabeth Chatterjee MD [address] [place] [phone] PCP - General Internal Medicine 07/26/22 Niall Magallanes, MACY [address] [place] [phone] Registered Nurse Family Medicine 12/25/24 Billy Ash 12/25/24
--- OUTSIDE RECORDS SUMMARY | 2025-02-06 15:50 | XMS_ITS | Encounter Summary ---
Author Organization [facility] Address [address] [place] [address] [address] [place] [address] Care Team Providers Care Civilian Jail Officer Name Role Phone Elizabeth Chatterjee MD Primary Care Pro vider Niall Magallanes RN Unavailable [phone] [place] Aldana Unavailable Niall Magallanes RN Unavailable [phone] Billy Ash Unavailable Reason for Visit * Reason Comments Med Refill Encounter Details Date Type Department Care Team ([facility] Contact Info) Description 10/08/2022 Refill [facility] [address] [place], [place] [phone] Elizabeth Chatterjee MD [address] [place], [place] [phone] Social History Tobacco Use Types Packs/Day Years [...] as of this encounter Plan of Treatment Upcoming Encounters Date Type Department Care Team (Late Contact Info) Description 02/27/2025 11:15 AM EST Office Visit [facility] [address] [place] [address] Elizabeth Chatterjee MD [address] [place], [place] [phone] documented as of this encounter Visit Diagnoses Not on filedocumented in this encounter Care Teams Civilian Jail Officer Relationship Specialty Start Date End Date Elizabeth Chatterjee MD [address] [place], [place] [phone] PCP - General Internal Medicine 07/26/22 Niall Magallanes, RN [address] [place], [place] [phone] Registered Nurse Family Medicine 08/29/24 12/21/24 [place] Aldana 08/29/24 12/21/24 Niall Magallanes, RN [address] [place] [address] Registered Nurse Family Medicine 12/25/24 Billy Ash 12/25/24 documented as of this encounter
--- OUTSIDE RECORDS SUMMARY | 2025-02-06 15:50 | XMS_ITS | Clinical Summary ---
Author Organization 175 [facility] Address [address] [place] [address] Phone Care Team Providers Care Refractory Technician Name Role Phone Elizabeth Chatterjee MD [...] (one) time each day. 30 g 2 01/02/20 24 Active hydrocortisone 2.5 % cream Apply topically 1 (one) time each day. 60 g 2 01/16/20 24 Active sucralfate (CARAFATE) 1 gram tablet Take 1 tablet (1 g total) by mouth 4 (four) times a day. 120 each 01/31/20 25 026 Active aluminum-magne sium hydroxide 200-200 mg/5 mL suspension Take 15 mL by mouth every 6 (six) hours if needed for heartburn for up to 10 days. 355 mL 01/13/20 25 025 sucralfate (CARAFATE) 1 gram tablet Take 1 tablet (1 g total) by mouth 4 (four) times a day. 120 each 01/13/20 25 025 Discontinued cephalexin (KEFLEX) 500 mg capsule Take 1 capsule (500 mg total) by mouth 4 (four) times a day for 7 days. 28 each 01/15/20 25 025 cephalexin (KEFLEX) 500 mg capsule Take 1 capsule (500 mg total) by mouth 4 (four) times a day for 7 days. 28 each 01/17/20 25 025 doxycycline (VIBRAMYCIN) 100 mg capsule Take 1 capsule (100 mg total) by mouth 2 (two) times a day for 7 days. Take with at least 8 ounces (large glass) of water, do not lie down for 30 minutes after. Administer 2 hours before or after multivitamins, antacids, or other products containing polyvalent cations (i.e., calcium, iron, magnesium, selenium, zinc). 14 each 01/17/20 025 Active Problems No known active problems Encounters Date Type Department Care Team Description 01/30/2025 12:39 AM EST - 01/30/2025 5:52 AM [facility] Emergency [address] [place] [phone] Elevated liver enzymes (Primary Dx); Right upper quadrant abdominal pain Discharge Disposition: Home or Self Care 01/16/2025 3:45 AM EST - 01/16/2025 4:44 AM [facility] Emergency [address] [place] [phone] Concern about STD in female without diagnosis (Primary Dx); Acute cystitis without hematuria Discharge Disposition: Home or Self Care 01/14/2025 11:04 PM EST - 01/15/2025 1:44 AM [facility] Emergency [address] [place] [phone] Concern about STD in female without diagnosis (Primary Dx); Acute cystitis without hematuria Discharge Disposition: Home or Self Care 01/14/2025 3:10 PM EST - 01/14/2025 4:39 PM [facility] Emergency [address] [place] [phone] Colette Mauricio MD Discharge Disposition: Left Against Medical Advice 01/12/2025 4:05 AM EST - 01/12/2025 7:38 AM EST [facility] Emergency [address] [place] [phone] Ricardo Stephen MD Nausea and vomiting, unspecified vomiting type (Primary Dx) Discharge Disposition: Home or Self Care 12/24/2024 7:14 PM EST - 12/24/2024 9:57 PM EST [facility] Emergency [address] [place] [phone] Encounter for medical assessment (Primary Dx); Acute nonintractable headache, unspecified headache type Discharge Disposition: Home or Self Care 12/04/2024 3:34 AM EDT - 12/04/2024 3:45 AM EDT [facility] [address] [place] [phone] Nausea (Primary Dx) Discharge Disposition: Home or Self Care 11/25/2024 10:05 AM EDT - 11/25/2024 10:40 AM EDT [facility] [address] [place] [phone] Tammy Mckeon MD Abdominal hematoma (Primary Dx) Discharge Disposition: Home or Self Care 11/24/2024 9:16 PM EDT - 11/25/2024 1:29 AM EDT [facility] [address] [place] [phone] Right upper quadrant abdominal pain (Primary Dx); Transaminitis Discharge Disposition: Another Health Care Institution Not Defined from Last 3 Months Surgical History Surgery Date Site/Laterality Comments CHOLECYSTECTOMY D&C FIRST TRIMESTER / TX INC OMPLETE / MISSED / SEPTIC / INDUCED Medical History Medical History Date Comments Gallstone Gastritis Social History Tobacco Use Types Packs/Day Years Used Date Smoking Tobacco: Former Cigarettes Tobacco Cessation:Counseling Given: Not Answered Alcohol Use Standard Drinks/Week Comments Not Currently 0 (1 standard drink = 0.6 oz pur e alcohol) Comments No Sex and Gender Information Value Date Recorded Sex Assigned at Female 10/29/2024 4:44 AM EDT Legal Sex Female 7:02 AM EST Gender Identity Female 10/29/2024 4:44 AM EDT Sexual Orientation Not on file Last Filed Vital Signs Vital Sign Reading Time Taken Comments Blood Pressure 127/70 01/30/2025 5:43 AM EST Pulse 70 01/30/2025 5:43 AM EST Temperature 36.5 C (97.7 F) 01/30/2025 12:59 AM EST Respiratory Rate 16 01/30/2025 5:43 AM EST Oxygen Saturation 99% 01/30/2025 5:43 AM EST Inhaled Oxygen Concentration - - Weight 85.7 kg (189 lb) 01/29/2025 5:30 PM EST Height 160 cm (5' 3 ) 01/29/2025 5:30 PM EST Body Mass Index 33.48 01/29/2025 5:30 PM EST Plan of Treatment Health Maintenance Due Date [...] 07/1987, 1987 MMR Vaccines Completed 09/11/1996, 05/19/1988 HIV Screening Completed 01/16/2025, 12/23, 07/25/2024, Additional history exists Hepatitis C Screening Completed 01/29/2025 , 01/16/2025, 07/25/2024, Additional history exists Hepatitis A Vaccines Aged [...] Procedure Name Priority Date/Time Associated Diagnosis Comments CT ABDOMEN PELVIS W CONTRAST STAT 01/30/2025 2:09 AM EST KIM URINE CULTURE TUBE STAT 01/30/20 10:32 PM EST URINALYSIS WITH REFLEX MICROSCOPIC AND CULTURE STAT 01/29/2025 10:32 PM EST URINALYSIS WITH REFLEX MICROSCOPIC AND CULTURE STAT 01/29/2025 10:32 PM EST CULTURE URINE STAT 01/29/2025 10:32 PM EST CHLAMYDIA TRACHOMATIS AND NEISSERIA GONORRHOEAE PCR STAT 01/29/2025 10:32 PM EST US ABDOMEN LIMITED STAT 01/29/2025 10 :10 PM EST HEPATITIS PANEL, ACUTE WITH REFLEX TO CONFIRMATION Add-On 01/29/2025 5:33 PM EST MONONUCLEOSIS SCREEN STAT Add-on 01/29/2025 5:33 PM EST ACETAMINOPHEN LEVEL STAT Add-on 01/29/2025 5 :33 PM EST HCG, SERUM, QUALITATIVE STAT Add-on 01/30/20 5:33 PM EST HEPATIC FUNCTION PANEL STAT Add-on 5:33 PM EST CBC WITH AUTO DIFFERENTIAL STAT 01/29/2025 5:33 PM EST LIPASE STAT 01/29/2025 5:33 PM EST COMPREHENSIVE METABOLIC PANEL STAT 01/29/2025 5:33 PM EST CBC AND DIFFERENTIAL STAT 01/29/2025 5:33 PM EST POC , URINE DIAGNOSTIC STAT 01/16/2025 4:29 AM EST KIM URINE CULTURE TUBE STAT 01/17/20 4:22 AM EST URINALYSIS WITH REFLEX MICROSCOPIC AND CULTURE STAT 01/16/2025 4:22 AM EST URINALYSIS WITH REFLEX MICROSCOPIC AND CULTURE STAT 01/16/2025 4:22 AM EST TRICHOMONAS VAGINALIS ANTIGEN STAT 01/16/2025 4:22 AM EST WET PREP, GENITAL STAT 01/16/2025 4:2 2 AM EST CHLAMYDIA TRACHOMATIS AND NEISSERIA GONORRHOEAE PCR STAT 01/16/2025 4:22 AM EST HCG, QUANTITATIVE STAT 01/16/2025 4:1 3 AM EST TREPONEMA PALLIDUM ANTIBODY WITH REFLEX TO RPR AND PARTICLE AGGLUTINATION STAT 01/16/2025 4:13 AM EST HEPATITIS C ANTIBODY STAT 01/16/2025 4:13 AM EST HIV 1, 2 ANTIBODY, P24 ANTIGEN WITH REFLEX TO DIFFERENTIATION STAT 01/16/2025 4:13 AM EST URINALYSIS WITH REFLEX MICROSCOPIC STAT 01/12/2025 5:35 AM EST URINALYSIS WITH REFLEX MICROSCOPIC STAT 01/12/2025 5:35 AM EST CHLAMYDIA TRACHOMATIS AND NEISSERIA GONORRHOEAE PCR STAT 01/12/2025 5:35 AM EST KIM URINE CULTURE TUBE Routine 01/13/20 5:34 AM EST EXTRA TUBES Routine 01/12/2025 5:34 AM EST HCG, SERUM, QUALITATIVE STAT Add-on 01/13/20 5:26 AM EST TREPONEMA PALLIDUM ANTIBODY WITH REFLEX TO RPR AND PARTICLE AGGLUTINATION Add-On 01/12/2025 5:26 AM EST HIV 1, 2 ANTIBODY, P24 ANTIGEN WITH REFLEX TO DIFFERENTIATION Add-On 01/12/2025 5:26 AM EST CBC WITH AUTO DIFFERENTIAL STAT 01/12/2025 5:26 AM EST LIPASE STAT 01/12/2025 5:26 AM EST COMPREHENSIVE METABOLIC PANEL STAT 01/12/2025 5:26 AM EST CBC AND DIFFERENTIAL STAT 01/12/2025 5:26 AM EST POC , URINE DIAGNOSTIC STAT 01/12/2025 2:49 AM EST HCG, SERUM, QUALITATIVE STAT 12/25/19 7:37 PM EST CBC WITH AUTO DIFFERENTIAL STAT 12/24/2024 7:37 PM EST COMPREHENSIVE METABOLIC PANEL STAT 12/24/2024 7:37 PM EST CBC AND DIFFERENTIAL STAT 12/24/2024 7:37 PM EST ECG ANNOTATED 12/05/2024 HCG, SERUM, QUALITATIVE STAT Add-on 12/05/19 1:05 AM EDT CBC WITH AUTO DIFFERENTIAL [...] 9:43 PM EDT HCG, SERUM, QUALITATIVE STAT 11/25/19 9:43 PM EDT PAP SMEAR Routine 08/11/2017 from Last 3 Months or Most Recently Relevant to Health Maintenance Results * CT Abdomen Pelvis w Contrast (01/30/2025 2:09 AM EST) Only the most recent of2 resultswithin the time period is included. Anatomical Region Laterality Modality Body Computed Tomogra phy 01/30/2025 2:39 AM EST Impressions 01/30/2025 2:39 AM EST Status post cholecystectomy. Significant reduction in the size of a gallbladder fossa fluid collection, now 2.9 x 2.8 cm, previously 5.6 x 4.8 cm. Differentials include biloma or seroma. Unremarkable liver. Patent portal vein. This document has been electronically signed by: Alin Villegas MD on 01/30/2025 02:39:11 Narrative 01/30/2025 2:39 AM EST INDICATION: RUQ pain, elevated liver enzymes CT abdomen and pelvis with contrast Comparison: US - US ABD LIMITED - 01/29/25 22:[address] - CT ABDOMEN PELVIS W CONTRAST - 11/24/24 22:30 EDT Findings: Partially visualized heart and lung bases are unremarkable. Cholecystectomy. Significant reduction in the size of a fluid collection within the gallbladder fossa, previously 5.6 x 4.8 cm, now 2.9 x 2.8 cm. Differentials include biloma or seroma. No significant intrahepatic or extrahepatic biliary dilation. No radiopaque biliary stones. Solid organs are unremarkable. No urolithiasis. No bowel obstruction, pneumoperitoneum, or pneumatosis. Normal appendix. Pelvic contents are unremarkable. Portal and mesenteric veins are patent. No abdominopelvic lymphadenopathy or free fluid. Osseous structures are unremarkable. Procedure Note Alin Villegas MD - 01/30/2025 INDICATION: RUQ pain, elevated liver enzymes CT abdomen and pelvis with contrast Comparison: US - US ABD LIMITED - 01/29/25 22:[address] - CT ABDOMEN PELVIS W CONTRAST - 11/24/24 22:30 EDT Findings: Partially visualized heart and lung bases are unremarkable. Cholecystectomy. Significant reduction in the size of a fluid collection within the gallbladder fossa, previously 5.6 x 4.8 cm, now 2.9 x 2.8 cm. Differentials include biloma or seroma. No significant intrahepatic or extrahepatic biliary dilation. No radiopaque biliary stones. Solid organs are unremarkable. No urolithiasis. No bowel obstruction, pneumoperitoneum, or pneumatosis. Normal appendix. Pelvic contents are unremarkable. Portal and mesenteric veins are patent. No abdominopelvic lymphadenopathy or free fluid. Osseous structures are unremarkable. IMPRESSION: Status post cholecystectomy. Significant reduction in the size of a gallbladder fossa fluid collection, now 2.9 x 2.8 cm, previously 5.6 x4.8 cm. Differentials include biloma or seroma. Unremarkable liver. Patent portal vein. This document has been electronically signed by: Alin Villegas MD on 01/30/2025 02:39:[address] PROCEDURES Final Result * (ABNORMAL) Urinalysis with reflex microscopic and culture (01/29/2025 10:32 PM EST) Only the most recent of2 resultswithin the time period is included. Specific Athena Urine 1.021 1.003 - 1.030 LAB URINALYSIS - AUTOMATED METHOD 01/29/2025 11:29 PM [facility] pH, Urine 8.0 5.0 - 8.0 pH LAB URINALYSIS - AUTOMATED METHOD 01/29/2025 11:29 PM [facility] Leukocytes, Urine Trace(A) Negative LAB URINALYSIS - AUTOMATED METHOD 01/29/2025 11:29 PM [facility] Nitrite, Urine Negative Negative LAB URINALYSIS - AUTOMATED METHOD 01/29/2025 11:29 PM [facility] Protein, Urine Trace <=Trace mg/dL LAB URINALYSIS - AUTOMATED METHOD 01/29/2025 11:29 PM [facility] Glucose, Urine Negative Negative mg/dL LAB URINALYSIS - AUTOMATED METHOD 01/29/2025 11:29 PM [facility] Ketones, Urine Negative Negative mg/dL LAB URINALYSIS - AUTOMATED METHOD 01/29/2025 11:29 PM [facility] Urobilinogen , Urine 1.0 0.2 - 1.0 mg/dL LAB URINALYSIS - AUTOMATED METHOD 01/29/2025 11:29 PM [facility] Bilirubin, Urine Negative Negative LAB URINALYSIS - AUTOMATED METHOD 01/29/2025 11:29 PM [facility] Blood, Urine Negative Negative LAB URINALYSIS - AUTOMATED METHOD 01/29/2025 11:29 PM [facility] RBC, Urine 1 0 - 4 /HPF 01/29/2025 11:29 PM [facility] WBC, Urine 1 0 - 4 /HPF 01/29/2025 11:29 PM [facility] Squamous Epithelial, Urine 30 0 - 60 /LPF 01/29/2025 11:29 PM [facility] Crystals, Urine Heavy Amorphous Phosphate crystals. /LPF 01/29/2025 11:29 PM [facility] Bacteria, Urine Few(A) Negative /HPF 01/29/2025 11:29 PM [facility] Hyaline Casts, Urine 2 0 - 3 /LPF 01/29/2025 11:29 PM [facility] Urine Urine specimen obtained by clean catch procedure / Unknown Non-blood Collection / Unknown 01/29/2025 10:32 PM EST 01/29/2025 11:05 PM EST us [facility] URINE ORDERABLES Final Res ult [facility] [address] [place] [address], * Kim urine culture tube (01/29/2025 10:32 PM EST) Only the most recent of3 resultswithin the time period is included. [facility] Extra Tube Hold for add-ons. 01/30/2025 1:01 AM [facility] Comment:Auto resulted. Urine Urine specimen obtained by clean catch procedure / Unknown Non-blood Collection / Unknown 01/29/2025 10:32 PM EST 01/29/2025 11:03 PM EST [facility] LAB URINE ORDERABLES Final Res ult Performing Organization Address City/[facility]/ZIP Co de Phone Number [facility] [address] [place] [address], [place] [phone] * Chlamydia trachomatis and Neisseria gonorrhoeae molecular study (01/29/2025 10:32 PM EST) Only the most recent of3 resultswithin the time period is included. [facility] Neisseria gonorrhoeae PCR Negative Negative LAB MOLECULAR DIAGNOSTICS METHOD 01/30/2025 10:38 AM [facility] Chlamydia trachomatis PCR Negative Negative LAB MOLECULAR DIAGNOSTICS METHOD 01/30/2025 10:38 AM [facility] Urine Urine specimen from urethra / Unknown Non-blood Collection / Unknown 01/29/2025 10:32 PM EST 01/29/2025 11:05 PM EST [facility] MICROBIOLOGY - GENERAL ORD ERABLES Final Result [facility] [address] [place] [address], [place] [phone] * Culture urine (01/29/2025 10:32 PM EST) [facility] Culture, Urine 10,000-49,000 CFU/mL Mixed bacterial morphotypes present suggestive of possible contamination during collection. Suggest appropriate recollection if clinically indicated. 01/31/2025 8:41 AM [facility] Urine Urine specimen obtained by clean catch procedure / Unknown Non-blood Collection / Unknown 01/29/2025 10:32 PM EST 01/29/2025 11:29 PM EST us [facility] LAB MICROBIOLOGY - GENERAL ORD ERABLES Final Result [facility] [address] [place] [address], [place] [phone] * US Abdomen Limited (01/29/2025 10:10 PM EST) Anatomical Region Laterality Modality Body Ultrasound 01/29/2025 10:5 9 PM EST Impressions 01/29/2025 10:59 PM EST 1. Previous cholecystectomy. Common bile duct within normal limits post cholecystectomy. 2. 2.3 cm x 2.9 cm x 3 cm complex fluid collection in gallbladder fossa is decreased in size compared with previous CT abdomen and pelvis dated 11/24/2024. This document has been electronically signed by: Linda Shaikh MD on 01/29/2025 22:59:32 Narrative 01/29/2025 10:59 PM EST INDICATION: liver enzymes elevated, RUQ pain US abdomen limited Comparison: CT - CT ABDOMEN PELVIS W CONTRAST - 11/24/24 22:30 EDT US/KO/NM/SR - US ABD LIMITED - 08/29/24 10:58 EDT Findings: Pancreas partially obscured by bowel gas. The liver measures 15.6 cm and slightly echogenic. There is no intrahepatic bile duct dilatation. The common duct is 7 mm in diameter. Previous cholecystectomy. There is a 2.3 cm x 2.9 cm x 3 cm complex fluid collection in the gallbladder fossa. The main portal vein is antegrade. The right kidney is 13.1 cm in length. No ascites. Procedure Note Linda Shaikh MD - 01/29/2025 INDICATION: liver enzymes elevated, RUQ pain US abdomen limited Comparison: CT - CT ABDOMEN PELVIS W CONTRAST - 11/24/24 22:30 EDT US/KO/NM/SR - US ABD LIMITED - 08/29/24 10:58 EDT Findings: Pancreas partially obscured by bowel gas. The liver measures 15.6 cm and slightly echogenic. There is no intrahepatic bile duct dilatation. The common duct is 7 mm in diameter. Previous cholecystectomy. There is a 2.3 cm x 2.9 cm x 3 cm complexfluid collection in the gallbladder fossa. The main portal vein is antegrade. The right kidney is 13.1 cm in length. No ascites. IMPRESSION: 1. Previous cholecystectomy. Common bile duct within normal limits post cholecystectomy. 2. 2.3 cm x 2.9 cm x 3 cm complex fluid collection in gallbladder fossais decreased in size compared with previous CT abdomen and pelvis dated 11/24/2024. This document has been electronically signed by: Linda Shaikh MD on 01/29/2025 22:59:32 us [facility] IMG US PROCEDURES Final Result * Hepatitis panel, acute with reflex to confirmation (01/29/2025 5:33 PM EST) Hepatitis B Surface Ag Negative Negative 01/30/2025 2:37 AM [facility] Comment:Over the counter sup plements containing high doses of biotin may interfere with this assay. If interference is suspected, patients shoud be retested after refraining from biotin supplements for 72 hours. Hepatitis A Antibody IgM Negative Negative 01/30/2025 2:37 AM [facility] Comment:Over the counter sup plements containing high doses of biotin may interfere with this assay. If interference is suspected, patients shoud be retested after refraining from biotin supplements for 72 hours. Hep B Core IgM Negative Negative 01/30/2025 2:37 AM [facility] Comment:Over the counter sup plements containing high doses of biotin may interfere with this assay. If interference is suspected, patients shoud be retested after refraining from biotin supplements for 72 hours. Hepatitis C Antibody Negative Negative 01/30/2025 2:37 AM [facility] Blood Venous blood specimen / Unknown Venipuncture / Unknown 01/29/2025 5:33 PM EST 01/29/2025 6:19 PM EST us [facility] LAB BLOOD ORDERABLES Final Res ult [facility] [address] [place] [address], [place] [phone] * (ABNORMAL) CBC auto differential (01/29/2025 5:33 PM EST) Only the most recent of5 resultswithin the time period is included. WBC 10.7 4.8 - 10.8 K/mcL LAB HEMETOLOGY METHOD 01/29/2025 6:35 PM EST [facility] RBC 4.50 3.80 - 4.80 M/mcL LAB HEMETOLOGY METHOD 01/29/2025 6:35 PM [facility] Hemoglobin 12.8 11.5 - 16.0 g/dL LAB HEMETOLOGY METHOD 01/29/2025 6:35 PM [facility] Hematocrit 39.0 35.0 - 47.0 % LAB HEMETOLOGY METHOD 01/29/2025 6:35 PM [facility] MCV 86.9 79.0 - 98.0 FL LAB HEMETOLOGY METHOD 01/29/2025 6:35 PM [facility] MCH 28.5 27.0 - 32.0 pcg LAB HEMETOLOGY METHOD 01/29/2025 6:35 PM [facility] MCHC 32.8 32.0 - 37.0 g/dL LAB HEMETOLOGY METHOD 01/29/2025 6:35 PM [facility] RDW 15.5(H) 11.0 - 15.0 % LAB HEMETOLOGY METHOD 01/29/2025 6:35 PM [facility] Platelets 364 130 - 400 K/mcL LAB HEMETOLOGY METHOD 01/29/2025 6:35 PM [facility] MPV 11.0 7.0 - 11.0 FL LAB HEMETOLOGY METHOD 01/29/2025 6:35 PM [facility] NRBC 0.0 <1.0 % LAB HEMETOLOGY METHOD 01/29/2025 6:35 PM [facility] NRBC Absolute 0.00 <0.10 K/mcL LAB HEMETOLOGY METHOD 01/29/2025 6:35 PM [facility] Neutrophils Relative 81.8 % LAB HEMETOLOGY METHOD 01/29/2025 6:35 PM [facility] Lymphocytes Relative 12.2 % LAB HEMETOLOGY METHOD 01/29/2025 6:35 PM [facility] Monocytes Relative 4.8 % LAB HEMETOLOGY METHOD 01/29/2025 6:35 PM [facility] Eosinophils Relative 0.4 % LAB HEMETOLOGY METHOD 01/29/2025 6:35 PM [facility] Basophils Relative 0.4 % LAB HEMETOLOGY METHOD 01/29/2025 6:35 PM [facility] Immature Granulocytes Relative 0.4 % LAB HEMETOLOGY METHOD 01/29/2025 6:35 PM [facility] Neutrophils Absolute 8.77(H) 1.50 - 7.00 K/mcL LAB HEMETOLOGY METHOD 01/29/2025 6:35 PM [facility] Lymphocytes Absolute 1.31 1.00 - 5.00 K/mcL LAB HEMETOLOGY METHOD 01/29/2025 6:35 PM [facility] Monocytes Absolute 0.51 0.20 - 1.00 K/mcL LAB HEMETOLOGY METHOD 01/29/2025 6:35 PM [facility] Eosinophils Absolute 0.04 0.00 - 0.50 K/mcL LAB HEMETOLOGY METHOD 01/29/2025 6:35 PM [facility] Basophils Absolute 0.04 0.00 - 0.20 K/[facility] LAB HEMETOLOGY METHOD 01/29/2025 6:35 PM EST [facility] Immature Granulocytes Absolute 0.04(H) 0.00 - 0.03 K/[facility] LAB HEMETOLOGY METHOD 01/29/2025 6:35 PM EST [facility] Blood Venous blood specimen / Unknown Venipuncture / Unknown 01/29/2025 5:33 PM EST 01/29/2025 6:19 PM EST Buddy Faulkner MD LAB BLOOD ORDERABLES Final Result Performing Organization Address City/[facility]/ZIP Co de Phone Number [facility] [address] [place] [address], [place] [phone] * Mononucleosis screen (01/29/2025 5:33 PM EST) Monospot Negative Negative 01/30/2025 2:14 AM EST [facility] Blood Venous blood specimen / Unknown Venipuncture / Unknown 01/29/2025 5:33 PM EST 01/29/2025 6:19 PM EST [facility] LAB BLOOD ORDERABLES Final Res ult [facility] [address] [place] [address], [place] [phone] * hCG, serum, qualitative (01/29/2025 5:33 PM EST) Only the most recent of5 resultswithin the time period is included. hCG Qual Negative Negative 01/30/2025 12:18 AM EST [facility] Blood Venous blood specimen / Unknown Venipuncture / Unknown 01/29/2025 5:33 PM EST 01/29/2025 6:19 PM EST us [facility] LAB BLOOD ORDERABLES Final Res ult Performing Organization Address [facility]/ZIP Co de Phone Number [facility] [address] [place] [address], * Lipase (01/29/2025 5:33 PM EST) Only the most recent of4 resultswithin the time period is included. Lipase 40 12 - 53 unit/L 01/29/2025 7:15 PM EST [facility] Blood Venous blood specimen / Unknown Venipuncture / Unknown 01/29/2025 5:33 PM EST 01/29/2025 6:19 PM EST Buddy Faulkner MD LAB BLOOD ORDERABLES Final Result Performing Organization Address [facility] Co de Phone Number [facility] [address] [place] [address], * (ABNORMAL) Acetaminophen level (01/29/2025 5:33 PM EST) [facility] Acetaminophen Level <2.0(L) 10.0 - 30.0 mcg/mL 01/30/2025 1:24 AM EST [facility] Blood Venous blood specimen / Unknown Venipuncture / Unknown 01/29/2025 5:33 PM EST 01/29/2025 6:19 PM EST [facility] LAB BLOOD ORDERABLES Final Res ult Performing Organization Address [facility]/ZIP Co de Phone Number [facility] [address] [place] [address], * (ABNORMAL) Hepatic function panel (01/29/2025 5:33 PM EST) Pathologist [facility] Total Protein 8.0 6.0 - 8.0 g/dL 01/30/2025 12:09 AM EST [facility] Albumin 4.4 3.2 - 5.0 g/dL 01/30/2025 12:09 AM [facility] Total Bilirubin 1.2 0.0 - 1.4 mg/dL 01/30/2025 12:09 AM [facility] Bilirubin, Direct 0.5(H) 0.0 - 0.3 mg/dL 01/30/2025 12:09 AM [facility] Bilirubin, Indirect 0.7 0.0 - 1.1 mg/dL 01/30/2025 12:09 AM [facility] ALT (SGPT) 221(H) 10 - 60 unit/L 01/30/2025 12:09 AM [facility] AST (SGOT) 145(H) 10 - 42 unit/L 01/30/2025 12:09 AM [facility] Alkaline Phosphatase 152(H) 42 - 121 unit/L 01/30/2025 12:09 AM [facility] Blood Venous blood specimen / Unknown Venipuncture / Unknown 01/29/2025 5:33 PM EST 01/29/2025 6:19 PM EST us Juana CASTRO LAB BLOOD ORDERABLES Final Res ult [facility] [address] [place] [address], * (ABNORMAL) Comprehensive metabolic panel (01/29/2025 5:33 PM EST) Only the most recent of5 resultswithin the time period is included. Sodium 136 133 - 145 mmol/L 01/29/2025 7:22 PM [facility] Potassium 4.0 3.5 - 5.5 mmol/L 01/29/2025 7:22 PM [facility] Chloride 98 96 - 110 mmol/L 01/29/2025 7:22 PM [facility] CO2 29 21 - 32 mmol/L 01/29/2025 7:22 PM [facility] Anion Gap 9 3 - 11 01/29/2025 7:22 PM [facility] Glucose 83 70 - 100 mg/dL 01/29/2025 7:22 PM [facility] BUN 12 5 - 25 mg/dL 01/29/2025 7:22 PM [facility] Creatinine 0.84 0.50 - 1.10 mg/dL 01/29/2025 7:22 PM [facility] eGFR 91 >=60 mL/min/1. 73m2 01/29/2025 7:22 PM [facility] Comment:Calculation based on the Chronic Kidney Disease Epidemiology Collaboration (CKD-EPI) equation refit without adjustment for race. BUN/Creatinine Ratio 14.3 01/29/2025 7:22 PM [facility] Calcium 8.9 8.5 - 10.5 mg/dL 01/29/2025 7:22 PM [facility] AST (SGOT) 143(H) 10 - 42 unit/L 01/29/2025 7:22 PM [facility] ALT (SGPT) 220(H) 10 - 60 unit/L 01/29/2025 7:22 PM [facility] Alkaline Phosphatase 150(H) 42 - 121 unit/L 01/29/2025 7:22 PM [facility] Total Protein 7.8 6.0 - 8.0 g/dL 01/29/2025 7:22 PM [facility] Albumin 4.4 3.2 - 5.0 g/dL 01/29/2025 7:22 PM [facility] Total Bilirubin 1.3 0.0 - 1.4 mg/dL 01/29/2025 7:22 PM EST [facility] Blood Venous blood specimen / Unknown Venipuncture / Unknown 01/29/2025 5:33 PM EST 01/29/2025 6:19 PM EST Buddy Faulkner MD LAB BLOOD ORDERABLES Final Result [facility] [address] [place] [address], * POC , urine manually resulted (01/16/2025 4:29 AM EST) Only the most recent of2 resultswithin the time period is included. HCG, Ur POC Negative Negative POC hCG Int QC Pass? Yes Yes Urine Urine specimen obtained by clean catch procedure / Unknown 01/16/2025 4:29 AM EST Arnie CASTRO POINT OF CARE TEST ENTER/ED IT ORDERABLES Final Result * Trichomonas vaginalis antigen (01/16/2025 4:22 AM EST) Trichomonas vaginalis Negative Negative 01/16/2025 9:41 AM EST [facility] Swab Vaginal structure / Unknown Non-blood Collection / Unknown 01/16/2025 4:22 AM EST 01/16/2025 4:30 AM EST Arnie CASTRO LAB MICROBIOLOGY - GENERAL ORDERABLES Final Result [facility] [address] [place] [address], * Wet prep, genital (01/16/2025 4:22 AM EST) Clue Cells, Wet Prep Negative Negative 01/16/2025 5:24 AM EST [facility] Yeast, Wet Prep Negative Negative 01/16/2025 5:24 AM EST [facility] Trichomonas, Wet Prep Indeterminate Negative 01/16/2025 5:24 AM EST [facility] Comment:Refer to Trichomonas antigen. Swab Vaginal structure / Unknown Non-blood Collection / Unknown 01/16/2025 4:22 AM EST 01/16/2025 4:30 AM EST Arnie CASTRO LAB MICROBIOLOGY - GENERAL ORDERABLES Final Result Performing Organization Address City/[facility]/ZIP Co de Phone Number [facility] [address] [place] [address], [place] [phone] * Hepatitis C antibody (01/16/2025 4:13 AM EST) Hepatitis C Antibody Negative Negative 01/16/2025 5:34 AM EST [facility] Blood Venous blood specimen / Unknown Venipuncture / Unknown 01/16/2025 4:13 AM EST 01/16/2025 4:28 AM EST Arnie CASTRO LAB BLOOD ORDERABLES Final Result Performing Organization Address [facility]/ZIP Co de Phone Number [facility] [address] [place] [address], [place] [phone] * HIV 1,2 antibody, p24 antigen with reflex to differentiation (01/16/2025 4:13 AM EST) Only the most recent of2 resultswithin the time period is included. HIV Combo AB/AG Negative Negative 01/16/2025 5:26 AM EST [facility] Blood Venous blood specimen / Unknown Venipuncture / Unknown 01/16/2025 4:13 AM EST 01/16/2025 4:28 AM EST Narrative [facility] - 01/16/2025 5:26 AM EST This assay is a 4th generation assay allowing for earlier detection of HIV infection by detecting the presence of the HIV-1 p24 antigen as well as the traditional antibodies to HIV type 1 (including group O) and type 2. Use of a 4th generation assay is the current CDC recommendation for HIV screening. Arnie CASTRO LAB BLOOD ORDERABLES Final Result Performing Organization Address [facility]/ZIP Co de Phone Number [facility] [address] [place] [address], [place] [phone] * Treponema pallidum antibody with reflex to RPR and particle agglutination (01/16/2025 4:13 AM EST) Only the most recent of2 resultswithin the time period is included. Pathologist [facility] [place] T. Pallidum Antibodies Negative Negative 01/16/2025 5:16 AM EST [facility] Blood Venous blood specimen / Unknown Venipuncture / Unknown 01/16/2025 4:13 AM EST 01/16/2025 4:28 AM EST Arnie CASTRO LAB BLOOD ORDERABLES Final Result Performing Organization Address [facility] de Phone Number [facility] [address] [place] [address], [place] [phone] * HCG, quantitative (01/16/2025 4:13 AM EST) Pathologist [facility] [place] hCG Quant <3 mIU/mL 01/16/2025 5:32 AM EST [facility] Comment:Results verified by repeat testing Blood Venous blood specimen / Unknown Venipuncture / Unknown 01/16/2025 4:13 AM EST 01/16/2025 4:28 AM EST Narrative [facility] - 01/16/2025 5:32 AM EST Quantitative HCG Reference Ranges Time after Conception MIU/ML 0.2-1 Week 5-50 1-2 Weeks 50-500 2-3 Weeks 100-5,000 3-4 Weeks 500-10,000 4-5 Weeks 1,000-50,000 5-6 Weeks 10,000-100,000 6-8 Weeks 15,000-200,000 2-3 Months 10,000-100,000 2nd Trimester 1,000-94,000 3rd Trimester 2,500-90,000 Non- Females 1-3 us Arnie CASTRO LAB BLOOD ORDERABLES Final Result [facility] [address] [place] [address], * (ABNORMAL) Urinalysis with reflex microscopic (01/12/2025 5:35 AM EST) Specific [employer]na Urine 1.020 1.003 - 1.030 LAB URINALYSIS - AUTOMATED METHOD 01/12/2025 6:49 AM [facility] pH, Urine 7.5 5.0 - 8.0 pH LAB URINALYSIS - AUTOMATED METHOD 01/12/2025 6:49 AM [facility] Leukocytes, Urine Small(A) Negative LAB URINALYSIS - AUTOMATED METHOD 01/12/2025 6:49 AM [facility] Nitrite, Urine Negative Negative LAB URINALYSIS - AUTOMATED METHOD 01/12/2025 6:49 AM [facility] Protein, Urine Negative <=Trace mg/dL LAB URINALYSIS - AUTOMATED METHOD 01/12/2025 6:49 AM [facility] Glucose, Urine Negative Negative mg/dL LAB URINALYSIS - AUTOMATED METHOD 01/12/2025 6:49 AM [facility] Ketones, Urine Negative Negative mg/dL LAB URINALYSIS - AUTOMATED METHOD 01/12/2025 6:49 AM [facility] Urobilinogen, Urine 1.0 0.2 - 1.0 mg/dL LAB URINALYSIS - AUTOMATED METHOD 01/12/2025 6:49 AM [facility] Bilirubin, Urine Negative Negative LAB URINALYSIS - AUTOMATED METHOD 01/12/2025 6:49 AM [facility] Blood, Urine Negative Negative LAB URINALYSIS - AUTOMATED METHOD 01/12/2025 6:49 AM [facility] RBC, Urine 4 0 - 4 /HPF 01/12/2025 6:49 AM [facility] WBC, Urine 4 0 - 4 /HPF 01/12/2025 6:49 AM [facility] Squamous Epithelial, Urine 40 0 - 60 /LPF 01/12/2025 6:49 AM [facility] Bacteria, Urine Few(A) Negative /HPF 01/12/2025 6:49 AM [facility] Hyaline Casts, Urine 3 0 - 3 /LPF 01/12/2025 6:49 AM [facility] Mucus, Urine Small None /HPF 01/12/2025 6:49 AM [facility] Urine Urine specimen obtained by clean catch procedure / Unknown Non-blood Collection / Unknown 01/12/2025 5:35 AM EST 01/12/2025 6:20 AM EST Ricardo Stephen MD LAB URINE ORDERABLES Final Resu lt [facility] [address] [place] [address], [place] [phone] * ECG-Annotated (12/05/2024) Only the most recent of2 resultswithin the time period is included. us Provider Onbase ECG ORDERABLES Final Result * Troponin I high sensitivity (12/04/2024 1:05 AM EDT) Only the most recent of2 resultswithin the time period is included. [facility] High Sensitivity Troponin I <3 <=54 ng/L LAB CHEMISTRY METHOD 12/04/2024 1:48 AM EDT [facility] Blood Venous blood specimen / Unknown Venipuncture / Unknown 12/04/2024 1:05 AM EDT 12/04/2024 1:22 AM EDT Narrative [facility] - 12/04/2024 1:48 AM EDT High levels of biotin in samples may falsely decrease hsTroponin values. Use caution when interpreting hsTroponin results in patients taking biotin who exhibit renal impairment (eGFR <60) or in patients taking more than 20 mg/day of biotin. us Tawanna Weiner MD LAB BLOOD ORDERABLES Final Result Performing Organization Address [facility] Co de Phone Number [facility] [address] [place] [address], [place] [phone] * Magnesium (12/04/2024 1:05 AM EDT) Only the most recent of2 resultswithin the time period is included. [facility] Magnesium 2.2 1.9 - 2.6 mg/dL LAB CHEMISTRY METHOD 12/04/2024 1:49 AM EDT [facility] Blood Venous blood specimen / Unknown Venipuncture / Unknown 12/04/2024 1:05 AM EDT 12/04/2024 1:22 AM EDT us Tawanna Weiner MD LAB BLOOD ORDERABLES Final Result Performing Organization Address City/[facility]/ZIP Co de Phone Number [facility] [address] [place] [address], [place] [phone] * ECG 12 lead (12/04/2024 12:54 AM EDT) Only the most recent of2 resultswithin the time period is included. [facility] Ventricular Rate ECG 80 BPM GEMUSE Atrial Rate 80 BPM GEMUSE P-R Interval 148 ms GEMUSE QRS Duration 84 ms GEMUSE Q-T Interval 376 ms GEMUSE QTc 433 ms GEMUSE P Wave [place] 60 degrees GEMUSE R [place] 65 degrees GEMUSE T [place] 65 degrees GEMUSE ECG Interpretation Normal sinus rhythm Normal ECG When compared with ECG of 24-NOV-2024 21:53, No significant change was found Confirmed by MD Munoz Christopher ([id number]) on 12/05/2024 8:36:57 AM GEMUSE 12/04/2024 12:5 4 AM EDT 12/05/2024 8:36 AM EDT us Tawanna Weiner MD ECG ORDERABLES Final Resul t GEMUSE * Blood Culture, Peripheral Draw #2 (11/25/2024 1:03 AM EDT) Only the most recent of2 resultswithin the time period is included. Culture, Blood No growth at 5 days 11/30/2024 4:01 AM EDT [facility] Blood Venous blood specimen / Unknown Venipuncture / Unknown 11/25/2024 1:03 AM EDT 11/25/2024 1:43 AM EDT us Arnie CASTRO LAB MICROBIOLOGY - GENERAL ORDERABLES Final Result [facility] [address] [place] [address], * Pap smear (08/11/2017) 08/11/2017 Narrative HISTORICAL TESTING LAB RESULTING AGENCY - 08/16/2017 9:06 AM EDT [id number] RESULTS OF GEN-PROBE APTIMA COMBO 2 ASSAY CHLAMYDIA: NEGATIVE N. GONORRHOEAE: NEGATIVE CHELSIE FRANKEL M.D., PATHOLOGIST (CASE ELECTRONICALLY SIGNED 08 16 2017) CLINICAL INFORMATION: Z11.3, Z12.4 Z11.3 ENCOUNTER FOR SCREENING FOR INFECTIONS WITH A PREDOMINANTLY SEXUAL MODE OF TRANSMISSION SOURCE: THINPREP PAP FOR CT/GC GROSS DESCRIPTION: THINPREP VIAL RECEIVED. PHYSICIANS MANUEL RUEDA/# /[id number] Manuel Rueda [facility] CYTOLOGY ORDERABLES Final Result HISTORICAL TESTING LAB RESULTING AGENCY from Last 3 Months or Most Recently Relevant to Health Maintenance Insurance MEDICAID - [place] Care Teams Refractory Technician Relationship Specialty Start Date End Date Elizabeth Chatterjee MD [address] [phone] PCP - General 08/24/23
--- OUTSIDE RECORDS SUMMARY | 2025-02-06 15:50 | XMS_ITS | Encounter Summary ---
Author Organization [facility] Address [address] [place] [address] Care Team Providers Care Saw Maker Name Role Phone Elizabeth Chatterjee MD Primary Care Pro vider Niall Magallanes RN Unavailable [phone] [place] Aldana Unavailable Niall Magallanes RN Unavailable [phone] Billy Ash Unavailable Encounter Details Date Type Department Care Team (Late st Contact Info) Description 04/13/2024 Orders Only [facility] MED & PEDS [address] [place] [address] Provider, MD Ze Social History Tobacco Use [...] Description 02/27/2025 11:15 AM EST Office Visit [facility] [address] [place] [address] [phone] Elizabeth Chatterjee MD [address] [place] [address] [phone] documented as of this encounter Procedures Procedure Name Priority Date/Time Associated Diagnosis Comments HM PAP/HPV Routine 02/02/2024 2:17 PM EST documented in this encounter Results * HM PAP/HPV (02/02/2024 2:17 PM EST) Historical Provider HEALTH MAINTENANCE Final Result documented in this encounter Visit Diagnoses Not on filedocumented in this encounter Care Teams Saw Maker Relationship Specialty Start Date End Date Elizabeth Chatterjee MD [address] [place] [address] [phone] PCP - General Internal Medicine 07/26/22 Niall Magallanes, RN [address] [place] [address] Registered Nurse Family Medicine 08/29/24 12/21/24 [place] Aldana 08/29/24 12/21/24 Niall Magallanes RN [address] [place], [place] [phone] Registered Nurse Family Medicine 12/25/24 Billy Ash 12/25/24 documented as of this encounter
--- OUTSIDE RECORDS SUMMARY | 2025-02-06 15:50 | XMS_ITS ---
Author Organization [employer] Address [address] [facility] 7t [place] [address] Care Team Providers Care Coil Tier Name Role Phone Elizabeth Chatterjee MD Primary Care Pro vider Niall Magallanes RN Unavailable [phone] Billy Ash Unavailable CM Complex Status:Outreach In Progress (Enrolling) Start date:12/25/2024 Enrollment reason:ADT Feed Overview ADT- [facility] ED 12/24/24 diagnosis lethargy. Case Team Name Relationship Phone Niall Magallanes RN(Responsible Staff) Registered Lizbeth rivera [phone] Continued Care and Services Coordination
--- OUTSIDE RECORDS SUMMARY | 2025-02-06 15:50 | XMS_ITS | Encounter Summary ---
Author Organization [facility] Address [address] [place] [address] 7 [place] [address] Care Team Providers Care Community Nutrition Educator Name Role Phone Elizabeth Chatterjee MD Primary Care Pro vider Niall Magallanes RN Unavailable [phone] [place] Aldana Unavailable Niall Magallanes RN Unavailable [phone] Billy Ash Unavailable Reason for Visit * Reason Onset Date Comments Medication Question 09/16/2022 Encounter Details Date Type Department Care Team ([facility] st Contact Info) Description 09/16/2022 Telephone [facility] [address] [place], [place] [phone] Elizabeth Chatterjee MD [address] [place], [place] [phone] Medication Question Social History Tobacco Use Types [...] getting any answers. Please contact pt at [phone] documented in this encounter Plan of Treatment Upcoming Encounters Date Type Department Care Team (Late st Contact Info) Description 02/27/2025 11:15 AM EST Office Visit [facility] [address] [place] [address] [phone] Elizabeth Chatterjee MD [address] [place] [address] [phone] documented as of this encounter Visit Diagnoses Not on filedocumented in this encounter Care Teams Community Nutrition Educator Relationship Specialty Start Date End Date Elizabeth Chatterjee MD [address] [place] [address] [phone] PCP - General Internal Medicine 07/26/22 Niall Magallanes, RN [address] [place] [address] Registered Nurse Family Medicine 08/29/24 12/21/24 [place] Aldana 08/29/24 12/21/24 Niall Magallanes, RN [address] [place], [place] [phone] Registered Nurse Family Medicine 12/25/24 Billy Ash 12/25/24 documented as of this encounter
--- OUTSIDE RECORDS SUMMARY | 2025-02-06 15:50 | XMS_ITS | Encounter Summary ---
Author Organization [employer] Address [address] [place] [address] 7t [place] [address] Care Team Providers Care Net Mvc Developer Name Role Phone Elizabeth Chatterjee MD Primary Care Pro vider Niall Magallanes RN Unavailable [phone] [place] Aldana Unavailable Niall Magallanes RN Unavailable [phone] Billy Ash Unavailable Reason for Visit * Reason Comments Med Change Request Encounter Details Date Type Department Care Team (Late st Contact Info) Description 08/26/2022 Refill [facility] [address] [place], [place] [phone] Elizabeth Chatterjee MD [address] [place] [address] Social History Tobacco Use Types Packs/Day Years [...] Description 02/27/2025 11:15 AM EST Office Visit [facility] [address] [place], [place] [phone] Elizabeth Chatterjee MD [address] [place], [place] [phone] documented as of this encounter Visit Diagnoses Not on filedocumented in this encounter Care Teams Net Mvc Developer Relationship Specialty Start Date End Date Elizabeth Chatterjee MD [address] [place], [place] [phone] PCP - General Internal Medicine 07/26/22 Niall Magallanes, RN [address] [place] [address] Registered Nurse Family Medicine 08/29/24 12/21/24 [place] Aldana 08/29/24 12/21/24 Niall Magallanes, MACY [address] [place] [address] Registered Nurse Family Medicine 12/25/24 Billy Ash 12/25/24 documented as of this encounter
--- OUTSIDE RECORDS SUMMARY | 2025-02-06 15:50 | XMS_ITS ---
Author Organization [employer] Address [address] [place] [address] 7 [place] [address] Care Team Providers Care Workers' Compensation Claims Examiner Name Role Phone Elizabeth Chatterjee MD Primary Care Pro vider Niall Magallanes RN Unavailable [phone] Billy Ash Unavailable CHW Complex Status:Outreach In Progress (Enrolling) Start date:12/25/2024 Enrollment reason:ADT Feed Overview ADT- [facility] ED 12/24/24 diagnosis lethargy. Case Team Name Relationship Phone Billy Ash(Responsible Staff) [phone] Continued Care and Services Coordination
--- OUTSIDE RECORDS SUMMARY | 2025-02-06 15:50 | XMS_ITS | Encounter Summary ---
Author Organization [employer] Address [address] [place] [address] Care Team Providers Care Cutter Barrel Drum Name Role Phone Elizabeth Chatterjee MD Primary Care Pro vider Niall Magallanes RN Unavailable [phone] Billy Ash Unavailable Reason for Visit * Reason Onset Date Comments ER Follow-up 02/05/2025 Encounter Details Date Type Department Care Team ([facility] Contact Info) Description 02/05/2025 Telephone [facility] [address] [place], [place] [phone] Nelli Blake, RN [address] [place], [place] [phone] ER Follow-up Social History Tobacco Use Types Packs/Day Years [...] encounter Miscellaneous Notes * Telephone Encounter - Nelli Blake RN - 02/05/2025 3:51 PM EST Telephone call placed to pt who has had many recent ED visits. She would like [facility] ED follow up with any provider as she recently had cholecystectomy and has had complications, Booked for tomorrow with Mirtha. * Telephone Encounter - Nelli Blake RN - 02/05/2025 3:45 PM EST Transition of Care Note Myesha Orellana is going through a recent transition of care. Emergency Room Visit Date: 01/30/2025 Facility: [facility] Diagnosis: abnormal labs Disposition: Discharged home Discharge summary in the chart: Yes Please contact for a telehealth RN visit documented in this encounter Plan of Treatment Upcoming Encounters Date Type Department Care Team (Late st Contact Info) Description 02/27/2025 11:15 AM EST Office Visit [facility] [address] [place] [phone] Elizabeth Chatterjee MD [address] [place] [address] documented as of this encounter Visit Diagnoses Not on filedocumented in this encounter Additional Health Concerns Assessment Noted Time PHQ-9 Depression Total Score: 1 05/30/19 25 10:43 AM EDT documented as of this encounter Care Teams Cutter Barrel Drum Relationship Specialty Start Date End Date Elizabeth Chatterjee MD [address] [place], [place] [phone] PCP - General Internal Medicine 07/26/22 Niall Magallanes RN [address] [place] [phone] Registered Nurse Family Medicine 12/25/24 Billy Ash 12/25/24 documented as of this encounter
--- OUTSIDE RECORDS SUMMARY | 2025-02-06 15:50 | XMS_ITS | Encounter Summary ---
Author Organization [employer] Address [address] [place] [address] Care Team Providers Care Consumer Affairs Director Name Role Phone Elizabeth Reaves MD Primary Care Provide r Elizabeth Chatterjee MD Primary Care Pro vider Niall Magallanes RN Unavailable [phone] [place] Aldana Unavailable Niall Magallanes RN Unavailable Billy Ash Unavailable Encounter Details Date Type Department Care Team (Late st Contact Info) Description 04/26/2022 Orders Only [facility] MED & PEDS [address] [place], [place] [phone] Marline Johnson MD [address] [place], [place] [phone] Vaginal discharge (Primary Dx) Social History Tobacco [...] Description 02/27/2025 11:15 AM EST Office Visit [facility] [address] [place] [address] Elizabeth Chatterjee MD [address] [place], [place] [phone] documented as of this encounter Visit Diagnoses Diagnosis Vaginal discharge- Primary Leukorrhea, not specified as infective documented in this encounter Care Teams Consumer Affairs Director Relationship Specialty Start Date End Date Elizabeth Reaves MD [address] [place] [address] [phone] PCP - General Family Medicine 10/01/21 07/25/22 Elizabeth Chatterjee MD [address] [place] [address] [phone] PCP - General Internal Medicine 07/26/22 Niall Magallanes RN [address] [place] [address] Registered Nurse Family Medicine 08/29/24 12/21/24 [place] Aldana 08/29/24 12/21/24 Niall Magallanes, RN [address] [place] [address] Registered Nurse Family Medicine 12/25/24 Billy Ash 12/25/24 documented as of this encounter
--- OUTSIDE RECORDS SUMMARY | 2025-02-06 15:50 | XMS_ITS | Encounter Summary ---
Author Organization [employer] Address [address] [place] [address] 7 [place] [address] Care Team Providers Care Senior Credit Analyst Name Role Phone Elizabeth Chatterjee MD Primary Care Pro vider Niall Magallanes RN Unavailable [phone] Geneva Aldana Unavailable Niall Magallanes RN Unavailable [phone] Billy Ash Unavailable Reason for Visit * Reason Onset Date Comments Call Back Request 07/11/2024 Encounter Details Date Type Department Care Team (Late st Contact Info) Description 07/11/2024 Telephone [facility] [address] [place] [address] Elizabeth Chatterjee MD 230 [place], [place] [phone] Call Back Request Social History Tobacco Use [...] no further info discussed. Please return call [phone] documented in this encounter Plan of Treatment Upcoming Encounters Date Type Department Care Team (Late st Contact Info) Description 02/27/2025 11:15 AM EST Office Visit [facility] [address] [place] [address] Elizabeth Chatterjee MD 230 [place] [address] documented as of this encounter Visit Diagnoses Not on filedocumented in this encounter Additional Health Concerns Assessment Noted Time PHQ-9 Depression Total Score: 1 05/30/19 25 10:43 AM EDT documented as of this encounter Care Teams Senior Credit Analyst Relationship Specialty Start Date End Date Elizabeth Chatterjee MD [address] [place] [address] [phone] PCP - General Internal Medicine 07/26/22 Niall Magallanes, RN 505 [place], [place] [phone] Registered Nurse Family Medicine 08/29/24 12/21/24 Geneva Aldana 08/29/24 12/21/24 Niall Magallanes RN 505 [place], [place] [phone] Registered Nurse Family Medicine 12/25/24 Billy Ash 12/25/24 documented as of this encounter
--- OUTSIDE RECORDS SUMMARY | 2025-02-06 15:50 | XMS_ITS | Encounter Summary ---
Author Organization [employer] Address [address] [place] [address] 7 [place] [address] Care Team Providers Care It Support Analyst Name Role Phone Elizabeth Chatterjee MD Primary Care Pro vider Niall Magallanes RN Unavailable [phone] Geneva Aldana Unavailable Niall Magallanes RN Unavailable [phone] Billy Ash Unavailable Reason for Visit * Reason Onset Date Comments PT-1 07/19/2024 Encounter Details Date Type Department Care Team (Late st Contact Info) Description 07/19/2024 Telephone [facility] [address] [place], [place] [phone] Elizabeth Chatterjee MD 230 [place], [place] [phone] PT-1 Social History Tobacco Use Types Packs/Day [...] Y/N: Yes Provider name or facility name: [facility] Facility Address: [address] [place] [address] Escort needed: Y/N: No Do you have a wheelchair: Y/N: No If yes- Manual or electric: N/A Visits: Twice a month documented in this encounter Plan of Treatment Upcoming Encounters Date Type Department Care Team (Late st Contact Info) Description 02/27/2025 11:15 AM EST Office Visit [facility] [address] [place] [address] [phone] Elizabeth Chatterjee MD 230 [place], [place] [phone] documented as of this encounter Visit Diagnoses Not on filedocumented in this encounter Additional Health Concerns Assessment Noted Time PHQ-9 Depression Total Score: 1 05/30/19 10:43 AM EDT documented as of this encounter Care Teams It Support Analyst Relationship Specialty Start Date End Date Elizabeth Chatterjee MD [address] [place] [address] PCP - General Internal Medicine 07/26/22 Niall Magallanes, RN 505 [place] [address] Registered Nurse Family Medicine 08/29/24 12/21/24 Geneva Aldana 08/29/24 12/21/24 Niall Magallanes RN 505 [place] [address] Registered Nurse Family Medicine 12/25/24 Billy Ash 12/25/24 documented as of this encounter
--- OUTSIDE RECORDS SUMMARY | 2025-02-06 15:50 | XMS_ITS | Encounter Summary ---
Author Organization [employer] Address [address] [facility] [address] [place] [address] Care Team Providers Care Microbiology Lab Technician Name Role Phone Elizabeth Chatterjee MD Primary Care Pro vider Niall Magallanes RN Unavailable [phone] Billy Ash Unavailable Encounter Details Date Type Department Care Team (Latest Contact Info) Description 02/06/2025 Travel Social History Tobacco Use Types Packs/Day [...] 02/27/2025 11:15 AM EST Office Visit [facility] [address] [place] [address] Elizabeth Chatterjee MD [address] [place] [address] documented as of this encounter Visit Diagnoses Not on filedocumented in this encounter Additional Health Concerns Assessment Noted Time PHQ-9 Depression Total Score: 1 05/30/19 25 10:43 AM EDT documented as of this encounter Care Teams Microbiology Lab Technician Relationship Specialty Start Date End Date Elizabeth Chatterjee MD [address] [place] [address] PCP - General Internal Medicine 07/26/22 Niall Magallanes, MACY [address] [place] [address] Registered Nurse Family Medicine 12/25/24 Billy Ash 12/25/24 documented as of this encounter
--- OUTSIDE RECORDS SUMMARY | 2025-02-06 15:50 | XMS_ITS | Encounter Summary ---
Author Organization [employer] Address [address] [facility] 7t [place] [address] Care Team Providers Care Gameplay Engineer Name Role Phone Elizabeth Reaves MD Primary Care Provide r Elizabeth Chatterjee MD Primary Care Pro vider Niall Magallanes RN Unavailable [phone] Geneva Aldana Unavailable Niall Magallanes RN Unavailable [phone] Billy Ash Unavailable Reason for Visit * Reason Onset Date Comments Appointment Request 05/28/2022 Encounter Details Date Type Department Care Team (Late st Contact Info) Description 05/28/2022 Telephone [facility] 230 [place], [place] [phone] Elizabeth Reaves MD 230 [place], [place] [phone] Appointment Request Social History Tobacco Use Types [...] * Telephone Encounter - Abigail Grimes - 05/28/2022 2:24 PM EDT Tc from pt requesting to r/s appt for TP appt. Please contact pt at [phone] documented in this encounter Plan of Treatment Upcoming Encounters Date Type Department Care Team (Late st Contact Info) Description 02/27/2025 11:15 AM EST Office Visit [facility] [address] [place] [address] Elizabeth Chatterjee MD [address] [place] [address] documented as of this encounter Visit Diagnoses Not on filedocumented in this encounter Care Teams Gameplay Engineer Relationship Specialty Start Date End Date Elizabeth Reaves MD [address] [place] [address] PCP - General Family Medicine 10/01/21 07/25/22 Elizabeth Chatterjee MD [address] [place] [address] PCP - General Internal Medicine 07/26/22 Niall Magallanes, MACY [address] [place] [address] Registered Nurse Family Medicine 08/29/24 12/21/24 Geneva Aldana 08/29/24 12/21/24 Niall Magallanes, RN [address] [place] [address] Registered Nurse Family Medicine 12/25/24 Billy Ash 12/25/24 documented as of this encounter
--- OUTSIDE RECORDS SUMMARY | 2025-02-06 15:50 | XMS_ITS | Encounter Summary ---
Author Organization [employer] Address 75 [facility] 7t [place] [address] Care Team Providers Care Power Project Manager Name Role Phone Elizabeth Reaves MD Primary Care Provide r Elizabeth Chatterjee MD Primary Care Pro vider Niall Magallanes RN Unavailable [phone] Geneva Aldana Unavailable Niall Magallanes RN Unavailable Billy Ash Unavailable Reason for Visit * Reason Onset Date Comments Appointment Request 07/02/2022 Encounter Details Date Type Department Care Team ([facility] st Contact Info) Description 07/02/2022 Telephone [facility]INE 230 [place], [place] [phone] Elizabeth Reaves MD 230 [place], [place] [phone] Appointment Request Social History Tobacco Use Types [...] onlySpeak with PCP. Please contact pt at [phone] documented in this encounter Plan of Treatment Upcoming Encounters Date Type Department Care Team ([facility] st Contact Info) Description 02/27/2025 11:15 AM EST Office Visit [facility]INE [address] [place] [address] Elizabeth Chatterjee MD [address] [place] [address] documented as of this encounter Visit Diagnoses Not on filedocumented in this encounter Care Teams Power Project Manager Relationship Specialty Start Date End Date Elizabeth Reaves MD [address] [place] [address] PCP - General Family Medicine 10/01/21 07/25/22 Elizabeth Chatterjee MD [address] [place] [address] PCP - General Internal Medicine 07/26/22 Niall Magallanes RN 505 [place] [address] Registered Nurse Family Medicine 08/29/24 12/21/24 Geneva Aldana 08/29/24 12/21/24 Niall Magallanes RN 505 [place] [address] Registered Nurse Family Medicine 12/25/24 Billy Ash 12/25/24 documented as of this encounter
--- OUTSIDE RECORDS SUMMARY | 2025-02-06 15:50 | XMS_ITS | Encounter Summary ---
Author Organization [employer] Address 75 [facility] 7t [place] [address] Care Team Providers Care Control Manager Name Role Phone Elizabeth Reaves MD Primary Care Provide r Elizabeth Chatterjee MD Primary Care Pro vider Niall Magallanes RN Unavailable [phone] Geneva Aldana Unavailable Niall Magallanes RN Unavailable [phone] Billy Ash Unavailable Reason for Visit * Reason Comments Med Refill Encounter Details Date Type Department Care Team ([facility] st Contact Info) Description 06/29/2022 Refill [facility] 505 [place], [place] [phone] Marline Johnson MD 505 [place], [place] [phone] Vaginal discharge Social History Tobacco Use Types [...] Description 02/27/2025 11:15 AM EST Office Visit [facility] [address] [place] [address] Elizabeth Chatterjee MD [address] [place] [address] [phone] documented as of this encounter Visit Diagnoses Diagnosis Vaginal discharge Leukorrhea, not specified as infective documented in this encounter Care Teams Control Manager Relationship Specialty Start Date End Date Elizabeth Reaves MD [address] [place] [address] [phone] PCP - General Family Medicine 10/01/21 07/25/22 Elizabeth Chatterjee MD [address] [place] [address] PCP - General Internal Medicine 07/26/22 Niall Magallanes RN 505 [place] [address] Registered Nurse Family Medicine 08/29/24 12/21/24 Geneva Aldana 08/29/24 12/21/24 Niall Magallanes, RN 505 [place] [address] Registered Nurse Family Medicine 12/25/24 Billy Ash 12/25/24 documented as of this encounter
--- OUTSIDE RECORDS SUMMARY | 2025-02-06 15:51 | XMS_ITS | Encounter Summary ---
Author Organization [employer] Address 75 [facility] 7 [place] [address] Care Team Providers Care Wooden Fence Erector Name Role Phone Elizabeth Chatterjee MD Primary Care Pro vider Niall Magallanes RN Unavailable [phone] Geneva Aldana Unavailable Niall Magallanes RN Unavailable [phone] Billy Ash Unavailable Reason for Visit * Reason Onset Date Comments Med Refill 12/19/2023 Encounter Details Date Type Department Care Team (Late st Contact Info) Description 12/19/2023 Telephone [facility] MED[facility]INE 230 [place], [place] [phone] Elizabeth Chatterjee MD 230 [place], [place] [phone] Med Refill Social History Tobacco Use Types [...] 0.1 % cream To be sent to: [facility]/pharmacy #[id number] [place], [place] - [address] [place] [address] documented in this encounter Plan of Treatment Upcoming Encounters Date Type Department Care Team (Late st Contact Info) Description 02/27/2025 11:15 AM EST Office Visit [facility] 230 [place] [address] Elizabeth Chatterjee MD [address] [place] [address] documented as of this encounter Visit Diagnoses Not on filedocumented in this encounter Care Teams Wooden Fence Erector Relationship Specialty Start Date End Date Elizabeth Chatterjee MD 230 [place], [place] [phone] PCP - General Internal Medicine 07/26/22 Niall Magallanes, RN 505 [place] [address] Registered Nurse Family Medicine 08/29/24 12/21/24 Geneva Aldana 08/29/24 12/21/24 Niall Magallanes, RN 505 [place] [address] Registered Nurse Family Medicine 12/25/24 Billy Ash 12/25/24 documented as of this encounter
--- OUTSIDE RECORDS SUMMARY | 2025-02-06 15:51 | XMS_ITS | Encounter Summary ---
Author Organization [employer] Address 75 [facility] 7 [place] [address] Care Team Providers Care Hander In Name Role Phone Elizabeth Chatterjee MD Primary Care Pro vider Niall Magallanes RN Unavailable [phone] Geneva Aldana Unavailable Niall Magallanes RN Unavailable [phone] Billy Ash Unavailable Reason for Visit * Reason Onset Date Comments Referral 11/23/2023 Encounter Details Date Type Department Care Team (Late st Contact Info) Description 11/23/2023 Telephone [facility] 230 [place], [place] [phone] Elizabeth Chatterjee MD 230 [place], [place] [phone] Referral Social History Tobacco Use Types Packs/Day [...] days of first appt. Will forward to duplication specialist to resend referral with recent date. * Telephone Encounter - Nir Campos - 11/23/2023 10:39 AM EDT Tc from [facility] stating they received referral for physical therapy but they're requesting a newone to be sent with more recent start date for them to have more time to schedule pt in. If any questions you can contact Debora at [phone] ext [phone]. documented in this encounter Plan of Treatment Upcoming Encounters Date Type Department Care Team (Late st Contact Info) Description 02/27/2025 11:15 AM EST Office Visit [facility] 230 [place], [place] [phone] Elizabeth Chatterjee MD 230 [place], [place] [phone] documented as of this encounter Visit Diagnoses Not on filedocumented in this encounter Care Teams Hander In Relationship Specialty Start Date End Date Elizabeth Chatterjee MD [address] [place] [address] [phone] PCP - General Internal Medicine 07/26/22 Niall Magallanes, RN 505 [place], [place] [phone] Registered Nurse Family Medicine 08/29/24 12/21/24 Geneva Aldana 08/29/24 12/21/24 Niall Magallanes RN 505 [place], [place] [phone] Registered Nurse Family Medicine 12/25/24 Billy Ash 12/25/24 documented as of this encounter
--- OUTSIDE RECORDS SUMMARY | 2025-02-06 15:51 | XMS_ITS | Encounter Summary ---
Author Organization [employer] Address 75 [facility] 7 [place] [address] Care Team Providers Care Creative Writing Professor Name Role Phone Elizabeth Chatterjee MD Primary Care Pro vider Niall Magallanes RN Unavailable [phone] Geneva Aldana Unavailable Niall Magallanes RN Unavailable [phone] Billy Ash Unavailable Reason for Visit * Reason Onset Date Comments Nurse Triage 12/19/2023 Encounter Details Date Type Department Care Team (Late st Contact Info) Description 12/19/2023 Telephone [facility]INE 230 [place], [place] [phone] Elizabeth Chatterjee MD 230 [place], [place] [phone] Nurse Triage Social History Tobacco Use Types [...] caller accepted this outcome. Contact pt at [phone] documented in this encounter Plan of Treatment Upcoming Encounters Date Type Department Care Team ([facility] st Contact Info) Description 02/27/2025 11:15 AM EST Office Visit [facility] MEDICINE [address] [place] [address] Elizabeth Chatterjee MD [address] [place] [address] documented as of this encounter Visit Diagnoses Not on filedocumented in this encounter Care Teams Creative Writing Professor Relationship Specialty Start Date End Date Elizabeth Chatterjee MD [address] [place] [address] PCP - General Internal Medicine 07/26/22 Niall Magallanes, MACY [address] [place] [address] Registered Nurse Family Medicine 08/29/24 12/21/24 Geneva Aldana 08/29/24 12/21/24 Niall Magallanes, MACY [address] [place] [address] Registered Nurse Family Medicine 12/25/24 iBlly Ash 12/25/24 documented as of this encounter
--- OUTSIDE RECORDS SUMMARY | 2025-02-06 15:51 | XMS_ITS | Encounter Summary ---
Author Organization [employer] Address 75 [facility] 7 [place] [address] Care Team Providers Care Hand Tile Maker Name Role Phone Elizabeth Chatterjee MD Primary Care Pro vider Niall Magallanes RN Unavailable [phone] Geneva Aldana Unavailable Niall Magallanes RN Unavailable [phone] Billy Ash Unavailable Reason for Visit * Reason Onset Date Comments Referral 08/31/2023 Encounter Details Date Type Department Care Team (Late st Contact Info) Description 08/31/2023 Telephone [facility] 230 [place] [address] Elizabeth Chatterjee MD 230 [place], [place] [phone] Referral Social History Tobacco Use Types Packs/Day [...] 09/01/2023 1:29 PM EDT TC placed to [facility] to inquire if pt could be seen as soon as possible for current callusesand sores on the bottom of the feet. Pt was referred back in 07/2023 and offered an appt but pt refused. According to Perry the pt did not want to be seen due to an incident that happened in the office a few year ago. They will, however, still see the pt if she wants to keep an appt scheduling for October of this year. RN called pt back and advised calling [facility] and scheduling as this is the [...] Description 02/27/2025 11:15 AM EST Office Visit [facility] 230 [place], [place] [phone] Elizabeth Chatterjee MD 230 [place], [place] [phone] documented as of this encounter Visit Diagnoses Not on filedocumented in this encounter Care Teams Hand Tile Maker Relationship Specialty Start Date End Date Elizabeth Chatterjee MD [address] [place] [address] [phone] PCP - General Internal Medicine 07/26/22 Niall Magallanes, RN 505 [place] [address] Registered Nurse Family Medicine 08/29/24 12/21/24 Geneva Aldana 08/29/24 12/21/24 Niall Magallanes, RN 505 [place] [address] Registered Nurse Family Medicine 12/25/24 Billy Ash 12/25/24 documented as of this encounter
[2025-02-06 15:54] LABS: Alanine Aminotransferase 87 U/L (0-31); Albumin Level 4.3 g/dL (3.5-5.0); Alkaline Phosphatase 104 U/L (39-117); Aspartate Amino Transferase 28 U/L (5-31); Gamma Glutamyl Transpeptidase 198 U/L (7-33); Total Protein 7.5 g/dL (6.5-8.0)
[2025-02-07 01:51] LABS: CT PCR NOT DETECTED (Not Detect.); NG PCR NOT DETECTED (Not Detect.)
[2025-02-07 04:30] LABS: HIV Num 1 0.05 S/CO (0.00-0.99)
[2025-02-07 04:50] LABS: ~HepC Num1 0.34 S/CO (0.00-0.79); ~Hepatitis C Antibody Nonreactive (Nonreactive)
[2025-02-07 04:51] LABS: HBS Num1 34.83 mIU/mL (0-7.99); HBc Num1 0.31 S/CO (0.00-0.79); Hepatitis A Antibody IgM 0.21 Index (0-0.79); ~HepC Num1 0.34 S/CO (0.00-0.79); ~Hepatitis A Antibody IgM Nonreactive (Nonreactive); ~Hepatitis B Surface Antibody REACTIVE (Nonreactive); ~Hepatitis C Antibody Nonreactive (Nonreactive)
[2025-02-07 13:33] LABS: HBsAGNum1 0.27 S/CO (0.00-0.99); Hepatitis B Surface Antigen Negative (Negative)
== END 2025-02-06 11:58 | disposition home or self-care (01) ==
LOC: HO.HHCL 11:57
PROVIDERS: Student in an Organized Health Care Education/Training Program; PCP Registered Nurse; Visit Provider Registered Nurse
DX: Z00.00 Encounter for general adult medical examination without abnormal findings (principal); Z11.4 Encounter for screening for human immunodeficiency virus [HIV]; Z11.59 Encounter for screening for other viral diseases; Z20.2 Contact with and (suspected) exposure to infections with a predominantly sexual mode of transmission; N92.6 Irregular menstruation, unspecified; R74.01 Elevation of levels of liver transaminase levels; R39.9 Unspecified symptoms and signs involving the genitourinary system; Z91.89 Other specified personal risk factors, not elsewhere classified
CPT/HCPCS: 36415; 80076; 81001; 82977; 84702; 86592; 86704; 86706; 86709; 86803; 87340; 87389; 87491; 87591; 87661